=== PATIENT | male | born 1960 | race Caucasian/White ===

== ENCOUNTER 2016-11-29 16:01 | Emergency (ER) | payer MEDICARE ==
[~2016-11-29] VITALS: Ht 180.3 cm; Wt 85.0 kg
[~2016-11-29 16:01] MED LIST: NAPR-576 PO; TRAM50 PO
[2016-11-29 16:20] VITALS: BP 160/89; PULSE 80; RESP 20; TEMP 98; O2SAT 98
--- NOTE | 2016-11-29 16:55 | PD ---
Physical Exam Time Seen by Provider: 16:53 Narrative 56yo M c/o back pain x 20 years. Arrived via [facility]. Says he cannot ambulate; says he "can take 2 steps forward and 5 steps backward and fall." Denies IVD use, cancer. Denies fever, vomiting. Patient seen in triage. VS reviewed. Awaiting bed placement. Data Data Last Documented VS Vital Signs Date Time Temp Pulse Resp B/P Pulse Ox O2 Delivery O2 Flow Rate FiO2 11/29/16 16:20 98.0 80 20 160/89 98 Room Air MDM Supervised Visit with LILY: Fallon Tucker Nov 29, 2016 16:55
[2016-11-29] MEDS ORDERED: MORPHINE SULFATE 8 MG/ML INJ IM ONE (19:45)
--- NOTE | 2016-11-29 19:53 | PD ---
HPI Chief Complaint: Back/ Neck Pain or Injury Time Seen by Provider: 19:20 Travel History International Travel<30 days: No Contact w/Intl Traveler<30days: No Traveled to known affect area: No History of Present Illness HPI 56yo M with chronic neck and back pain presents to the ED with c/o worsening back pain today. States he has back and neck pain since 2004 and had surgery in his neck before. States he is suppose to have surgery in his back but has not followed up. States his back pain radiates down posterior left leg when he lifts his left leg. States his pain was so severe today that he fell backwards and hit his head today. Denies any fever, IVDA, focal weakness or numbness, chest pain, sob, n/v, abdominal pain, urinary or fecal incontinence. Pt does admit to drinking all the time but not today. Pt is homeless. PFSH Past Medical History Diminished Hearing: No Past Surgical History Abdominal Surgery: Yes (HERNIA REPAIR BILATERAL ) Social History Alcohol Use: Yes Tobacco Use: Yes Substance Use: No Allergies-Medications (Allergen,Severity, Reaction): Coded Allergies: No Known Allergies (Unverified , 11/29/16) Reported Meds & Prescriptions Reported Meds & Active Scripts Active No Active Prescriptions or Reported Medications Review of Systems Except as stated in HPI: all other systems reviewed are Neg Physical Exam Narrative GENERAL: 56yo M not in distress. SKIN: Focused skin assessment warm/dry. HEAD: Atraumatic. Normocephalic. +TTP midparietal scalp where he said he hit his head. EYES: Pupils equal and round at 3mm bilaterally. EOMI. No scleral icterus. No injection or drainage. ENT: No nasal bleeding or discharge. Mucous membranes pink and moist. NECK: Diffuse ttp, more on left. Good ROM in cervical spine. CARDIOVASCULAR: Regular rate and rhythm. No murmur appreciated. RESPIRATORY: No accessory muscle use. Clear to auscultation. Breath sounds equal bilaterally. GASTROINTESTINAL: Abdomen soft, non-tender, nondistended. MUSCULOSKELETAL: No obvious deformities. No clubbing. No cyanosis. No edema. + Left straight leg test. BACK: +TTP mid T11-L5. No midline mass. No step off. No erythema. NEUROLOGICAL: Awake and alert. No obvious cranial nerve deficits. Motor grossly within normal limits. Normal speech. Sensation intact. PSYCHIATRIC: Appropriate mood and affect; insight and judgment normal. Data Data Last Documented VS Vital Signs Date Time Temp Pulse Resp B/P Pulse Ox O2 Delivery O2 Flow Rate FiO2 11/29/16 16:20 98.0 80 20 160/[address] Brain W/O Iv Contrast(Rout) (11/29/16 ) Ct Thor Spine W/O Contrast (11/29/16 ) Ct Lumb Spine W/O Contrast (11/29/16 ) Ct Cerv Spine W/O Contrast (11/29/16 ) Morphine Inj (Morphine Inj) (11/29/16 19:45) MDM Medical Decision Making Medical Screen Exam Complete: Yes Emergency Medical Condition: Yes Differential Diagnosis Chronic back and neck pain vs. fracture vs. ICH Narrative Course 56yo M with chronic neck and back pain here for pain treatment. Pt has been in and out of different pain management places and states he does not have anyone now. CT cspine showed negative trauma CT. CT brain negative. CT LS showed fracture through left L2 transverse process. CT TS showed negative trauma study. I discussed with neurosurgeon [employer] professional Dr. Martinez regarding the fracture of left L2 transverse process and he states that he does not need a brace and can follow up with primary care physician as outpatient. Pt given morphine IM for pain and has been able to ambulate in the ED without assistance. Diagnosis Primary Impression: Lumbar transverse process fracture Qualified Code: S32.008A - Lumbar transverse process fracture, closed, initial encounter Patient Instructions: General Instructions Departure Forms: Tests/Procedures Additional Instructions: Please follow up at [facility] in 1-2 days. Return to the ED if symptoms worsen. Med/Other Pt SpecificInfo: Prescription(s) given Scripts Acetaminophen (Tylenol)325 Mg Lss572 Mg PO Q6H PRN (PAIN SCALE 1 TO 4) #20 TAB Ref 0 Prov:Uzma Lopez 11/29/16 Disposition: 01 DISCHARGE HOME Condition: Stable Uzma Lopez Nov 29, 2016 19:53
--- NOTE | 2016-11-29 20:25 | RADRPT ---
EXAM DATE/TIME: 11/29/2016 20:04 [facility] COMPARISON: No previous studies available for comparison. INDICATIONS : Fell and hit head RADIATION DOSE: 69.15 CTDIvol (mGy) MEDICAL HISTORY : None SURGICAL HISTORY : Neck surgery. ENCOUNTER: Initial ACUITY: 1 day PAIN SCALE: 9/10 LOCATION: cranial TECHNIQUE: Multiple contiguous axial images were obtained of the head. Using automated exposure control and adj ustment of the mA and/or kV according to patient size, radiation dose was kept as low as reasonably a chievable to obtain optimal diagnostic quality images. DICOM format image data is available electro nically for review and comparison. FINDINGS: CEREBRUM: The ventricles are normal for age. No evidence of midline shift, mass lesion, hemorrhage or acute in farction. No extra-axial fluid collections are seen. POSTERIOR FOSSA: The cerebellum and brainstem are intact. The 4th ventricle is midline. The cerebellopontine angle i s unremarkable. EXTRACRANIAL: The visualized portion of the orbits is intact. SKULL: The calvaria is intact. No evidence of skull fracture. CONCLUSION: Negative noncontrast CT Chester Covington MD on November 29, 2016 at 20:22 Board Certified Radiologist. This report was verified electronically.
--- NOTE | 2016-11-29 20:30 | RADRPT ---
EXAM DATE/TIME: 11/29/2016 20:04 [facility] COMPARISON: No previous studies available for comparison. INDICATIONS : Chronic back pain, fell today RADIATION DOSE: 25.27 CTDIvol (mGy) ; Combined studies - Thoracic Spine/Lumbar Spine MEDICAL HISTORY : None SURGICAL HISTORY : Neck surgery. ENCOUNTER: Initial ACUITY: 1 day PAIN SCALE: 9/10 LOCATION: Low back TECHNIQUE: Volumetric scanning of the lumbar spine was performed. Multiplanar reconstructions in the sagittal, coronal and oblique axial planes were performed. Using automated exposure control and adjustment of the mA and/or kV according to patient size, radiation dose was kept as low as reasonably achievable t o obtain optimal diagnostic quality images. DICOM format image data is available electronically for review and comparison. FINDINGS: VERTEBRAE: Normal vertebral body height. ALIGNMENT: No evidence of subluxation. T12-L1: The thecal sac has a normal diameter. No evidence of disc bulge or protrusion. The neural foramina are patent bilaterally. L1-L2: The thecal sac has a normal diameter. No evidence of disc bulge or protrusion. The neural foramina are patent bilaterally. There is a fracture of the left L2 transverse process. L2-L3: The thecal sac has a normal diameter. No evidence of disc bulge or protrusion. The neural foramina are patent bilaterally. L3-L4: There is mild annular disc bulge with mild mass effect on the anterior thecal sac. The neural foramin a are patent bilaterally. L4-L5: There is an annular disc bulge with mild flattening of the thecal sac and The neural foramina are pat ent bilaterally. L5-S1: The thecal sac has a normal diameter. No evidence of disc bulge or protrusion. The neural foramina are patent bilaterally. CONCLUSION: 1. Fracture through the left L2 transverse process. 2. Disc bulges at the L3-4 and L4-5 levels. Chester Covington MD on November 29, 2016 at 20:25 Board Certified Radiologist. This report was verified electronically.
--- NOTE | 2016-11-29 20:32 | RADRPT ---
EXAM DATE/TIME: 11/29/2016 20:08 [facility] COMPARISON: No previous studies available for comparison. INDICATIONS : Chronic back pain, fell today RADIATION DOSE: 36.7 CTDIvol (mGy) MEDICAL HISTORY : None SURGICAL HISTORY : Neck surgery. ENCOUNTER: Initial ACUITY: 1 day PAIN SCALE: 9/10 LOCATION: neck TECHNIQUE: Volumetric scanning of the cervical spine was performed. Multiplanar reconstructions i n the sagittal, coronal and oblique axial planes were performed. Using automated exposure control a nd adjustment of the mA and/or kV according to patient size, radiation dose was kept as low as reason ably achievable to obtain optimal diagnostic quality images. DICOM format image data is available e lectronically for review and comparison. FINDINGS: The sagittal reconstructions demonstrate normal alignment and normal prevertebral soft tissues. The d ens is intact and there is a normal atlantoaxial relationship. The patient is status post remote fusi on of the C4 and C5 vertebral bodies as well as the C6 and C7 vertebral bodies. There are degenerativ e changes at the C5-6 and C7-T1 levels. Mild degenerative changes noted involving the atlantoaxial don int as well. The axial images demonstrate that the vertebral bodies and posterior elements are intact. The soft ti ssues are within normal limits. There is no evidence of acute fracture or malalignment. There is a di sc osteophyte complex at the C5-6 level with mass effect on the anterior thecal sac. Screw-plate fixa tion devices present at the C6-7 level anteriorly. CONCLUSION: Negative trauma CT. Chester Covington MD on November 29, 2016 at 20:28 Board Certified Radiologist. This report was verified electronically.
--- NOTE | 2016-11-29 20:37 | RADRPT ---
EXAM DATE/TIME: 11/29/2016 20:12 [facility] COMPARISON: No previous studies available for comparison. INDICATIONS : Chronic back pain, fell today RADIATION DOSE: 25.72 CTDIvol (mGy) ; Combined studies - Thoracic Spine/Lumbar Spine MEDICAL HISTORY : None SURGICAL HISTORY : Neck surgery. ENCOUNTER: Initial ACUITY: 1 day PAIN SCALE: 9/10 LOCATION: Mid back TECHNIQUE: Volumetric scanning of the thoracic spine was performed. Multiplanar reconstructions in the sagittal , coronal and oblique axial planes were performed. Using automated exposure control and adjustment o f the mA and/or kV according to patient size, radiation dose was kept as low as reasonably achievable to obtain optimal diagnostic quality images. DICOM format image data is available electronically f or review and comparison. FINDINGS: The vertebral bodies of the thoracic spine are in normal alignment without evidence of subluxation. Vertebral body height is maintained. No fractures are seen. There is a mild scoliosis there are mild to moderate degenerative changes. The paravertebral soft tissues appear unremarkable. The axial images demonstrate that vertebral bodies and posterior elements are intact. There is no acu te fracture. The visualized ribs are intact as well. Calcified subcarinal lymph nodes are present. Th ere is no evidence of a disc protrusion. CONCLUSION: Negative trauma study. Chester Covington MD on November 29, 2016 at 20:32 Board Certified Radiologist. This report was verified electronically.
[2016-11-29] MEDS ORDERED: TYLE325T PO (21:34)
[2016-11-29 21:55] VITALS: BP 152/80
== END 2016-11-29 21:55 | disposition home or self-care (01) ==
LOC: NEPD 16:01
DX: S32.008A Other fracture of unspecified lumbar vertebra, initial encounter for closed fracture (principal); W18.00XA Striking against unspecified object with subsequent fall, initial encounter; Z59.0 Homelessness; Z72.0 Tobacco use
CPT/HCPCS: 70450; 72125; 72128; 72131; 96372; 99284; J2270

== ENCOUNTER 2016-12-24 11:37 | Inpatient (IN) | payer MEDICARE ==
[~2016-12-24] VITALS: Ht 180.3 cm; Wt 87.6 kg
[~2016-12-24 11:37] MED LIST changes: -NAPR-576 PO; -TRAM50 PO; +TYLE325T PO
[2016-12-24 11:47] VITALS: BP 155/91; PULSE 67; RESP 16; TEMP 98.6; O2SAT 97
--- NOTE | 2016-12-24 12:13 | PD ---
HPI Chief Complaint: Skin Problem Time Seen by Provider: 11:55 Travel History International Travel<30 days: No Contact w/Intl Traveler<30days: No Traveled to known affect area: No History of Present Illness HPI This is a 56-year-old gentleman who states he has no past, presents today with my to worsening pain and redness of his right lower extremity. Patient states that 20 days ago he was seen and told it was just a scratch. He states that its progressively gotten worse and now it's draining and has deep ulceration in the middle. He reports subjective fever, no chills. He does report myalgias. There is no other complaints time my examination. He denies being diabetic. He is unsure of his last tetanus shot. PFSH Past Medical History Diminished Hearing: No Tetanus Vaccination: Unknown Past Surgical History Abdominal Surgery: Yes (hernia left and right side ) Social History Alcohol Use: No Tobacco Use: Yes Substance Use: No Allergies-Medications (Allergen,Severity, Reaction): Coded Allergies: No Known Allergies (Unverified , 12/24/16) Reported Meds & Prescriptions Reported Meds & Active Scripts Active No Active Prescriptions or Reported Medications Review of Systems Except as stated in HPI: all other systems reviewed are Neg General / Constitutional: Positive: Fever, No: Chills HENT: No: Headaches, Lightheadedness, Neck Pain Cardiovascular: No: Chest Pain or Discomfort, Palpitations Respiratory: No: Cough, Shortness of Breath Gastrointestinal: No: Nausea, Vomiting, Abdominal Pain Genitourinary: No: Frequency, Dysuria Musculoskeletal: Positive: Myalgias, Pain (right reyes) Skin: Positive Lesions (draining ulceration right reyes), Positive Other ( redness of the right reyes) Neurologic: No: Weakness, Dizziness, Syncope Physical Exam Narrative GENERAL: Well developed well-nourished male in no acute rest her distress. SKIN: Focused skin assessment warm/dry. HEAD: Atraumatic. Normocephalic. EYES: Pupils equal and round. No scleral icterus. No injection or drainage. ENT: No nasal bleeding or discharge. Mucous membranes pink and moist. NECK: Trachea midline. Supple. CARDIOVASCULAR: Regular rate and rhythm. No murmurs appreciated. RESPIRATORY: No accessory muscle use. Clear to auscultation. Breath sounds equal bilaterally. GASTROINTESTINAL: Abdomen soft, non-tender, nondistended. Hepatic and splenic margins not palpable. MUSCULOSKELETAL: Patient has a 1 cm ulceration to his right mid reyes. There is surrounding cellulitis. There is purulent serous drainage coming from the lesion. NEUROLOGICAL: Awake and alert. No obvious cranial nerve deficits. Motor grossly within normal limits. Normal speech. PSYCHIATRIC: Appropriate mood and affect; insight and judgment normal. Data Data Last Documented VS Vital Signs Date Time Temp Pulse Resp B/P Pulse Ox O2 Delivery O2 Flow Rate FiO2 12/24/16 14:31 65 167/89 12/24/16 14:29 15 97 Nasal Cannula 2 12/24/16 11:47 98.6 Orders Complete Blood Count With Diff (12/24/16 11:55) Comprehensive Metabolic Panel (12/24/16 11:55) Lactic Acid Sepsis Protocol (12/24/16 11:55) Urinalysis - C+S If Indicated (12/24/16 11:55) Blood Culture (12/24/16 11:55) Wound Culture And Gram Stain (12/24/16 11:55) Chest, Single Ap (12/24/16 11:55) Blood Glucose (12/24/16 11:55) Ecg Monitoring (12/24/16 11:55) Iv Access Insert/Monitor (12/24/16 11:55) Oximetry (12/24/16 11:55) Oxygen Administration (12/24/16 11:55) Ondansetron Inj (Zofran Inj) (12/24/16 14:15) Hydromorphone Pf Inj (Dilaudid Pf Inj) (12/24/16 14:15) Vancomycin Inj (Vancomycin Inj) (12/24/16 14:15) Tibia/Fibula (Ap/Lat) (12/24/16 14:32) Admit To Inpatient (12/24/16 ) Vital Signs (Adult) Q4H (12/24/16 15:11) Activity Oob With Assistance (12/24/16 15:11) Diet Heart Healthy (12/24/16 Dinner) Sodium Chlor 0.9% 1000 Ml Inj (Ns 1000 M (12/24/16 15:11) Sodium Chloride 0.9% Flush (Ns Flush) (12/24/16 15:15) Sodium Chloride 0.9% Flush (Ns Flush) (12/24/16 21:00) Acetaminophen (Tylenol) (12/24/16 15:15) Ondansetron Inj (Zofran Inj) (12/24/16 15:15) Basic Metabolic Panel (Bmp) (12/25/16 06:00) Complete Blood Count With Diff (12/25/16 06:00) Pt Request For Service (12/24/16 15:11) Case Management Consult (12/24/16 15:11) Consult Wound / Ostomy Nurse (12/24/16 15:11) Zolpidem (Ambien) (12/24/16 15:15) Enoxaparin Inj (Lovenox Inj) (12/24/16 15:15) Acetamin-Hydrocod 325-5 Mg (Edwards 5-325 (12/24/16 15:15) Docusate Sodium-Senna (Tisha-Colace) (12/24/16 21:00) Magnesium Hydroxide Liq (Milk Of Magnesi (12/24/16 15:15) Sennosides (Senokot) (12/24/16 15:15) Bisacodyl Supp (Dulcolax Supp) (12/24/16 15:15) Lactulose Liq (Lactulose Liq) (12/24/16 15:15) Inpatient Certification (12/24/16 ) Admit To Inpatient (12/24/16 ) Vital Signs (Adult) Q4H (12/24/16 15:11) Bedside Glucose JACKIE.AC&HS (12/24/16 15:11) Intake + Output JACKIE.QSHIFT (12/24/16 15:11) Alcohol Withdrawal Asmt-Ciwa Q4HX18 (12/24/16 15:11) ^ Seizure Precautions (12/24/16 15:11) Sodium Chloride 0.9% Flush (Ns Flush) (12/24/16 15:15) Sodium Chloride 0.9% Flush (Ns Flush) (12/24/16 21:00) Consult Cm-Etoh Abuse Dc Plan (12/24/16 ) Flumazenil Inj (Romazicon Inj) (12/24/16 15:15) Lorazepam (Ativan) (12/24/16 15:15) Lorazepam Inj (Ativan Inj) (12/24/16 15:15) Lorazepam (Ativan) (12/24/16 15:15) Lorazepam Inj (Ativan Inj) (12/24/16 15:15) Lorazepam Inj (Ativan Inj) (12/24/16 15:15) Lorazepam Inj (Ativan Inj) (12/24/16 15:15) Vancomycin Consult Pharmacy (Vancomycin (12/24/16 15:15) Vancomycin Inj (Vancomycin Inj) (12/24/16 15:15) Admit Order (Ed Use Only) (12/24/16 15:16) Labs Laboratory Tests Test 12/24/16 12/24/16 11:50 12:00 White Blood Count 9.6 TH/MM3 Red Blood Count 3.90 MIL/MM3 Hemoglobin 14.0 GM/DL Hematocrit 40.0 % Mean Corpuscular Volume 102.6 FL Mean Corpuscular Hemoglobin 35.8 PG Mean Corpuscular Hemoglobin 34.9 % Concent Red Cell Distribution Width 13.2 % Platelet Count 216 TH/MM3 Mean Platelet Volume 8.3 FL Neutrophils (%) (Auto) 77.7 % Lymphocytes (%) (Auto) 15.0 % Monocytes (%) (Auto) 6.1 % Eosinophils (%) (Auto) 0.8 % Basophils (%) (Auto) 0.4 % Neutrophils # (Auto) 7.4 TH/MM3 Lymphocytes # (Auto) 1.4 TH/MM3 Monocytes # (Auto) 0.6 TH/MM3 Eosinophils # (Auto) 0.1 TH/MM3 Basophils # (Auto) 0.0 TH/MM3 CBC Comment DIFF FINAL Differential Comment Sodium Level 139 MEQ/L Potassium Level 3.8 MEQ/L Chloride Level 104 MEQ/L Carbon Dioxide Level 23.1 MEQ/L Anion Gap 12 MEQ/L Blood Urea Nitrogen 10 MG/DL Creatinine 0.88 MG/DL Estimat Glomerular Filtration 90 ML/MIN Rate Random Glucose 105 MG/DL Lactic Acid Level 1.9 mmol/L Calcium Level 8.6 MG/DL Total Bilirubin 0.4 MG/DL Aspartate Amino Transf 73 U/L (AST/SGOT) Alanine Aminotransferase 55 U/L (ALT/SGPT) Alkaline Phosphatase 81 U/L Total Protein 7.6 GM/DL Albumin 3.8 GM/DL Urine Color YELLOW Urine Turbidity CLEAR Urine pH 6.0 Urine Specific Caldwell 1.013 Urine Protein TRACE mg/dL Urine Glucose (UA) NEG mg/dL Urine Ketones TRACE mg/dL Urine Occult Blood NEG Urine Nitrite NEG Urine Bilirubin NEG Urine Urobilinogen LESS THAN 2.0 MG/DL Urine Leukocyte Esterase NEG Urine RBC LESS THAN 1 /hpf Urine WBC LESS THAN 1 /hpf Microscopic Urinalysis Comment CULT NOT INDICATED MDM Medical Decision Making Medical Screen Exam Complete: Yes Emergency Medical Condition: Yes Differential Diagnosis Cellulitis versus osteomyelitis versus DVT Narrative Course 56-year-old male who reports no past medical history, presents today with complaint of right lower extremity redness and draining lesion. The patient has cellulitis with a central necrotic draining lesion. The patient's white count is surprisingly normal. The patient does have a history of alcohol use. He reports subjective fever. He also reports myalgias. He's been started on vancomycin. X-ray of the right lower extremity shows no obvious lytic lesions in the tibia or fibula. Case was discussed with Dr. Dahl, who agrees with the above plan. He will be made a full admit. Diagnosis Primary Impression: Cellulitis of right lower extremity Scripts No Active Prescriptions or Reported Meds Jerson Montilla MD Dec 24, 2016 12:13
[2016-12-24 12:35] LABS: AUTOMATED NEUTROPHIL # 7.4 TH/MM3 (1.8-7.7); BASOPHIL % 0.4 % (0.0-2.0); EOSINOPHIL # 0.1 TH/MM3 (0-0.4); EOSINOPHIL % 0.8 % (0.0-4.0); HEMO FLAGS DIFF FINAL; LYMPHOCYTE # 1.4 TH/MM3 (1.0-4.8); MEAN CELL VOLUME 102.6 FL (80.0-100.0); MEAN CORPUSCULAR HEMOGLOBIN 35.8 PG (27.0-34.0); MEAN CORPUSCULAR HGB CONC 34.9 % (32.0-36.0); MONO % 6.1 % (0.0-8.0); NEUT % 77.7 % (16.0-70.0); PLATELET COUNT 216 TH/MM3 (150-450); RED CELL DISTRIBUTION WIDTH 13.2 % (11.6-17.2); WHITE BLOOD COUNT 9.6 TH/MM3 (4.0-11.0)
--- NOTE | 2016-12-24 12:47 | RADRPT ---
EXAM DATE/TIME: 12/24/2016 12:04 [facility] COMPARISON: No previous studies available for comparison. INDICATIONS : Fever. MEDICAL HISTORY : None. SURGICAL HISTORY : None. ENCOUNTER: Initial ACUITY: 1 day PAIN SCORE: 0/10 LOCATION: Bilateral chest FINDINGS: A single view of the chest demonstrates the lungs to be symmetrically aerated without evidence of mas s, infiltrate or effusion. The cardiomediastinal contours are unremarkable. Osseous structures are intact. CONCLUSION: No acute disease. Conner Escobedo MD on December 24, 2016 at 12:45 Board Certified Radiologist. This report was verified electronically.
[2016-12-24 12:55] LABS: ALT (GPT) 55 U/L (12-78)
[2016-12-24 12:57] LABS: ALKALINE PHOSPHATASE 81 U/L (45-117); TOTAL BILIRUBIN ADULT 0.4 MG/DL (0.2-1.0)
[2016-12-24 13:03] LABS: ANION GAP 12 MEQ/L (5-15); AST (GOT) 73 U/L (15-37); BICARBONATE 23.1 MEQ/L (21.0-32.0); BLOOD UREA NITROGEN 10 MG/DL (7-18); CHLORIDE 104 MEQ/L (98-107); GLOMERULAR FILTRATION RATE 90 ML/MIN (>89); POTASSIUM 3.8 MEQ/L (3.5-5.1); SODIUM (NA) 139 MEQ/L (136-145)
[2016-12-24 13:24] LABS: BLOOD, URINE NEG (NEG); COMMENT (UR) CULT NOT INDICATED; CULTURE IF INDICATED CULT NOT INDICATED; GLUCOSE,URINE NEG (NEG); KETONE, URINE TRACE mg/dL (NEG); NITRITE,URINE NEG (NEG); URINE COLOR YELLOW (YELLW/STRAW)
[2016-12-24] MEDS ORDERED: VANCOMYCIN INJ 1,000 MG in SODIUM CHLOR 0.9% 250 ML INJ 250 ML IV ONE (14:15)
[2016-12-24] MEDS ORDERED: ONDANSETRON HCL 4 MG/2 ML VIAL IVP ONE (14:15)
[2016-12-24] MEDS ORDERED: HYDROmorphone HCL PF 1 MG/ML VIAL IVS ONE (14:15)
[2016-12-24 14:29] VITALS: BP 167/89; PULSE 64; RESP 15; O2SAT 97
[2016-12-24 14:31] VITALS: BP 167/89; PULSE 65
--- NOTE | 2016-12-24 15:04 | RADRPT ---
EXAM DATE/TIME: 12/24/2016 14:52 [facility] COMPARISON: No previous studies available for comparison. INDICATIONS : Pain from wound on anterior, lateral surface of leg. MEDICAL HISTORY : None. SURGICAL HISTORY : None. ENCOUNTER: Initial ACUITY: 3 weeks PAIN SCORE: 5/10 LOCATION: Right later, anterior aspect of lower leg. FINDINGS: Two views of the right leg demonstrate no fracture or dislocation. Mineralization is within normal li mits. No soft tissue abnormality or radiopaque foreign body is identified.CONCLUSION: No acute abnormality is identified Inderjit Crooks MD on December 24, 2016 at 15:01 Board Certified Radiologist. This report was verified electronically.
[2016-12-24] MEDS ORDERED: LORazepam 2 MG/ML VIAL IV PUSH PRN ×4 (15:15)
[2016-12-24] MEDS ORDERED: FLUMAZENIL 0.5 MG/5 ML VIAL IV PUSH PRN (15:15)
[2016-12-24] MEDS ORDERED: Vancomycin Consult Pharmacy 1 EA OTHER SCH (15:15)
[2016-12-24] MEDS ORDERED: MAGNESIUM HYDROXIDE SUSP 30 ML CUP PO PRN (15:15)
[2016-12-24] MEDS ORDERED: SODIUM CHLORIDE 0.9% FLUSH 10 ML FLUSH IV FLUSH PRN ×2 (15:15)
[2016-12-24] MEDS ORDERED: LACTULOSE SYRUP 20 GM/30 ML CUP PO PRN (15:15)
[2016-12-24] MEDS ORDERED: ONDANSETRON HCL 4 MG/2 ML VIAL IVP PRN (15:15)
[2016-12-24] MEDS ORDERED: BISACODYL 10 MG SUPP RECTAL PRN (15:15)
[2016-12-24] MEDS ORDERED: LORazepam 2 MG TAB PO PRN (15:15)
[2016-12-24] MEDS ORDERED: SENNOSIDES 8.6 MG TAB PO PRN (15:15)
[2016-12-24] MEDS ORDERED: ACETAMINOPHEN 325 MG TAB PO PRN (15:15)
--- NOTE | 2016-12-24 15:22 | HHI.HP ---
[facility] Primary Care Physician No Primary Care Physician Admission Diagnosis Diagnoses: Chief Complaint: Right leg ulceration with pain and redness Travel History International Travel<30 Days: No Contact w/Intl Traveler <30 Da: No Traveled to Known Affected Are: No History of Present Illness Written by Tammie Bennett PA-C acting as scribe for Dr. Dahl on 12/24/16 at 15:15. This note was transcribed by scribe Tammie Bennett PA-C. I, Dr. Dayana Dahl personally performed the history, physical exam, and medical decision making; and confirmed the accuracy of the information in the transcribed note. Authenticated by Dr. Dayana Dahl on 12/24/16 at 15:15. This is a 56-year-old male whose only past medical history is significant for previous cardiac catheterization which revealed a small blockage in one vessel that did not require medical therapy per patient report who fell on the curb approximately 20 days ago resulting in a scratch of the right leg. States over the past several weeks the scratch has worsened becoming larger now with associated redness and pain despite his treatment of peroxide cleaning and application of triple antibiotic ointment. He is able to walk but states it is painful. He reports subjective fever and chills. He denies any nausea, vomiting or abdominal pain but states he has had diarrhea for the past week. Patient denies chest pain. He denies any previous history of diabetes but does report a family history of diabetes. He denies any history of IV drug use. Patient is noted to be smelling of alcohol. He reports having one beer earlier today. He does report being tremulous at this time which he states is due to the infection. He does not follow with a primary care physician. In the ED, patient is afebrile his white count is normal. X-ray of the right leg is pending. Blood pressure is slightly elevated 167/89. Review of Systems Except as stated in HPI: all other systems reviewed are Neg Past Family Social History Past Medical History Previous heart catheterization which showed small blockage in one vessel that did not necessitate medical therapy per patient report. Past Surgical History Bilateral hernia repair Left hand surgery Left foot surgery 2 Nasal surgery Multiple cervical surgeries including a previous fusion Cardiac catheterization Reported Medications Patient denies any home medications. Allergies: Coded Allergies: No Known Allergies (Unverified , 12/24/16) Active Ordered Medications Current Medications Medications (Trade) Dose Ordered Sig/Brandon Route Start Time Stop Time Status Last Admin (Vancomycin Inj/ NS 250 ml Inj) 250 ml @ 250 mls/hr ONCE ONCE IV 12/24/16 14:15 12/24/16 15:14 12/24/16 14:27 Family History Reviewed with patient who admits to family medical history diabetes and heart disease Social History Patient admits to tobacco use of pack per day for 40 years. Patient reports alcohol consumption of 4-5 drinks per week. He denies any illicit drug use. Physical Exam Vital Signs Vital Signs Date Time Temp Pulse Resp B/P Pulse Ox O2 Delivery O2 Flow Rate FiO2 12/24/16 14:31 65 167/89 12/24/16 14:29 64 15 167/89 97 Nasal Cannula 2 12/24/16 14:29 97 Nasal Cannula 2 12/24/16 11:50 69 16 12/24/16 11:47 98.6 67 16 155/91 97 Physical Exam GENERAL: This is a well-nourished, well-developed patient, in no apparent distress. Awake and alert. Lying in hospital bed. SKIN: (+)3x3cm area of ulceration right anterior tibia with surrounding erythema. No induration or fluctuance appreciated. No active drainage noted. HEAD: Atraumatic. Normocephalic. No temporal or scalp tenderness. EYES: Pupils equal round and reactive. Extraocular motions intact. No scleral icterus. No injection or drainage. ENT: Nose without bleeding or purulent drainage. Throat without erythema, tonsillar hypertrophy or exudate. Uvula midline. Airway patent. NECK: Trachea midline. No lymphadenopathy. Supple, nontender, no meningeal signs. CARDIOVASCULAR: Regular rate and rhythm without murmurs, gallops, or rubs. RESPIRATORY: Clear to auscultation. Breath sounds equal bilaterally. No wheezes , rales, or rhonchi. GASTROINTESTINAL: Abdomen soft, non-tender, nondistended. No hepato-splenomegaly , or palpable masses. No guarding. MUSCULOSKELETAL: Extremities without clubbing, cyanosis, or edema. No joint tenderness, effusion, or edema noted. No calf tenderness. NEUROLOGICAL: Awake and alert. Able to move all extremities. No focal neurologic findings appreciated. Normal speech. Laboratory Laboratory Tests Test 12/24/16 12/24/16 11:50 12:00 White Blood Count 9.6 Red Blood Count 3.90 Hemoglobin 14.0 Hematocrit 40.0 Mean Corpuscular Volume 102.6 Mean Corpuscular Hemoglobin 35.8 Mean Corpuscular Hemoglobin 34.9 Concent Red Cell Distribution Width 13.2 Platelet Count 216 Mean Platelet Volume 8.3 Neutrophils (%) (Auto) 77.7 Lymphocytes (%) (Auto) 15.0 Monocytes (%) (Auto) 6.1 Eosinophils (%) (Auto) 0.8 Basophils (%) (Auto) 0.4 Neutrophils # (Auto) 7.4 Lymphocytes # (Auto) 1.4 Monocytes # (Auto) 0.6 Eosinophils # (Auto) 0.1 Basophils # (Auto) 0.0 CBC Comment DIFF FINAL Differential Comment Sodium Level 139 Potassium Level 3.8 Chloride Level 104 Carbon Dioxide Level 23.1 Anion Gap 12 Blood Urea Nitrogen 10 Creatinine 0.88 Estimat Glomerular Filtration 90 Rate Random Glucose 105 Lactic Acid Level 1.9 Calcium Level 8.6 Total Bilirubin 0.4 Aspartate Amino Transf 73 (AST/SGOT) Alanine Aminotransferase 55 (ALT/SGPT) Alkaline Phosphatase 81 Total Protein 7.6 Albumin 3.8 Urine Color YELLOW Urine Turbidity CLEAR Urine pH 6.0 Urine Specific Bent 1.013 Urine Protein TRACE Urine Glucose (UA) NEG Urine Ketones TRACE Urine Occult Blood NEG Urine Nitrite NEG Urine Bilirubin NEG Urine Urobilinogen LESS THAN 2.0 Urine Leukocyte Esterase NEG Urine RBC LESS THAN 1 Urine WBC LESS THAN 1 Microscopic Urinalysis Comment CULT NOT INDICATED Date/Time Procedure Status Source Growth 12/24/16 12:00 Aerobic Blood Culture Received Blood Peripheral Pending 12/24/16 12:00 Anaerobic Blood Culture Received Blood Peripheral Pending 12/24/16 11:45 Gram Stain Received Wound Leg Pending 12/24/16 11:45 Wound Culture Received Wound Leg Pending Result Diagram: 12/24/16 1150 12/24/16 1150 Imaging Last Impressions Chest X-Ray 12/24/16 1155 Signed Impressions: Service Date/Time: Saturday, December 24, 2016 12:04 - CONCLUSION: No acute disease. Conner Escobedo MD Assessment and Plan Assessment and Plan 56-year-old male whose only past medical history is significant for previous cardiac catheterization which revealed a small blockage in one vessel that did not require medical therapy per patient report who fell on the curb approximately 20 days ago resulting in a scratch of the right leg. States over the past several weeks the scratch has worsened becoming larger now with associated redness and pain. Right lower extremity cellulitis - Patient started on vancomycin in the ED and will continue - Follow-up on blood culture and wound culture results - IV Zofran when necessary nausea and vomiting - IVF - PT eval/tx - Tylenol when necessary for fever and pain - Obtain hemoglobin A1c evaluation of possible undiagnosed diabetes - X-ray of the right leg reviewed by myself and the ED physician shows no evidence of deeper infection, abscess or underlying osteomyelitis. Will follow up on final report once available. Elevated blood pressure - Patient has no document a history of hypertension the patient admits he does not cut or primary care physician - obtain fasting lipid profile - Vasotec 2.5mg IV q6 prn, Clonidine 0.1mg IV q6h prn - Will consult case management to assist with list of primary care providers patient follow up with as an outpatient Suspicion of alcohol abuse - Patient denies any history of alcohol withdrawal including tremors or seizures - CIWA protocol, rally pack. Seizure precautions - Monitor for signs of withdrawal Ongoing tobaccoism - Discussed smoking cessation/counseling - on ativan for withdrawals. DVT prophylaxis - Lovenox subcutaneous Discussed Condition With Patient, ED physician Physician Certification 2 Midnight Certification Type: Admission for Inpatient Services Order for Inpatient Services The services are ordered in accordance with Medicare regulations or non- Medicare payer requirements, as applicable. In the case of services not specified as inpatient-only, they are appropriately provided as inpatient services in accordance with the 2-midnight benchmark. Estimated LOS (days): 3 days is the estimated time the patient will need to remain in the hospital, assuming treatment plan goals are met and no additional complications. Post-Hospital Plan: Home Tammie Bennett Dec 24, 2016 15:22 Dayana Dahl MD Dec 24, 2016 15:28
[2016-12-24] MEDS ORDERED: THIAMINE HCL 100 MG TAB PO ONE (15:30)
[2016-12-24] MEDS ORDERED: FOLIC ACID 1 MG TAB PO ONE (15:30)
[2016-12-24] MEDS ORDERED: MULTIVITAMIN TAB PO ONE (15:30)
[2016-12-24] MEDS ORDERED: cloNIDine HCL 0.1 MG TAB PO PRN (15:30)
[2016-12-24] MEDS ORDERED: ENALAPRILAT 2.5 MG/2 ML VIAL IV PUSH PRN (15:30)
[2016-12-24] MEDS: SODIUM CHLOR 0.9% 1000 ML INJ 1,000 ML IV SCH ×2 (15:32→20:55)
[2016-12-24 16:27] VITALS: BP 158/78
[2016-12-24 16:37] VITALS: BP 147/87; PULSE 83; RESP 20; TEMP 97.9; O2SAT 91
[2016-12-24] MEDS: ACETAMINOPHEN/HYDROcodone 325 MG/5 MG TAB PO PRN ×2 (17:31→21:48)
[2016-12-24] MEDS: LORazepam 1 MG TAB PO PRN ×2 (17:31→21:48)
[2016-12-24] MEDS: ENOXAPARIN SODIUM 40 MG/0.4 ML SYRINGE SQ SCH (17:32)
[2016-12-24 18:11] LABS: HDL CHOLESTEROL 92.1 MG/DL (40.0-60.0); LDL CHOLESTEROL 25 MG/DL (0-99)
[2016-12-24 20:00] VITALS: BP 162/83; PULSE 47; RESP 20; TEMP 97.8; O2SAT 94
[2016-12-24] MEDS: DOCUSATE SODIUM 50 MG/SENNA 8.6 MG TAB PO SCH (20:50)
[2016-12-24] MEDS: SODIUM CHLORIDE 0.9% FLUSH 10 ML FLUSH IV FLUSH SCH (20:50)
[2016-12-24] MEDS ORDERED: SODIUM CHLORIDE 0.9% FLUSH 10 ML FLUSH IV FLUSH SCH (21:00)
[2016-12-24 21:34] LABS: HEMOGLOBIN A1a 1.3 %; HEMOGLOBIN A1b 0.7 %; HEMOGLOBIN Ao 84.8 %; HEMOGLOBIN LA1C 2.2 %; HEMOGLOBIN P3 3.7 %
[2016-12-25 00:08] VITALS: BP 142/73; PULSE 44; RESP 20; TEMP 97.9; O2SAT 95
[2016-12-25] MEDS: LORazepam 1 MG TAB PO PRN ×6 (01:31→22:43)
[2016-12-25] MEDS: ACETAMINOPHEN/HYDROcodone 325 MG/5 MG TAB PO PRN ×5 (01:31→17:39)
[2016-12-25] MEDS: VANCOMYCIN INJ 1,000 MG in SODIUM CHLOR 0.9% 250 ML INJ 250 ML IV SCH ×2 (01:32→13:23)
[2016-12-25 04:00] VITALS: BP 155/72; PULSE 71; RESP 20; TEMP 97.9; O2SAT 97
[2016-12-25 06:48] LABS: BICARBONATE 29.5 MEQ/L (21.0-32.0); POTASSIUM 3.7 MEQ/L (3.5-5.1)
[2016-12-25 07:09] LABS: AUTOMATED NEUTROPHIL # 3.9 TH/MM3 (1.8-7.7); BASOPHIL % 0.4 % (0.0-2.0); EOSINOPHIL # 0.1 TH/MM3 (0-0.4); EOSINOPHIL % 2.1 % (0.0-4.0); HEMATOCRIT 40.1 % (39.0-51.0); HEMO FLAGS DIFF FINAL; LYMPH % 18.8 % (9.0-44.0); MEAN CELL VOLUME 104.1 FL (80.0-100.0); MEAN CORPUSCULAR HGB CONC 33.6 % (32.0-36.0); NEUT % 70.7 % (16.0-70.0); PLATELET COUNT 189 TH/MM3 (150-450); RED BLOOD COUNT 3.85 MIL/MM3 (4.50-5.90); RED CELL DISTRIBUTION WIDTH 13.1 % (11.6-17.2); WHITE BLOOD COUNT 5.5 TH/MM3 (4.0-11.0)
[2016-12-25 08:00] VITALS: BP 154/78; PULSE 45; RESP 20; TEMP 97.8; O2SAT 95
[2016-12-25] MEDS: THIAMINE HCL 100 MG TAB PO SCH (09:10)
[2016-12-25] MEDS: DOCUSATE SODIUM 50 MG/SENNA 8.6 MG TAB PO SCH ×2 (09:10→20:49)
[2016-12-25] MEDS: FOLIC ACID 1 MG TAB PO SCH (09:10)
[2016-12-25] MEDS: MULTIVITAMIN TAB PO SCH (09:10)
[2016-12-25] MEDS: SODIUM CHLORIDE 0.9% FLUSH 10 ML FLUSH IV FLUSH SCH ×2 (09:12→20:46)
--- NOTE | 2016-12-25 11:43 | HHI.PR ---
Subjective Remarks complains of pain- leg started out as scrape- self medicating with OTC topical antibiotics Objective Vitals Vital Signs Date Time Temp Pulse Resp B/P Pulse Ox O2 Delivery O2 Flow Rate FiO2 12/25/16 08:00 97.8 45 20 154/78 95 12/25/16 04:00 97.9 71 20 155/72 97 12/25/16 04:00 Room Air 12/25/16 00:08 97.9 44 20 142/73 95 12/25/16 00:00 Room Air 12/24/16 20:00 Room Air 12/24/16 20:00 97.8 47 20 162/83 94 12/24/16 16:37 97.9 83 20 147/87 91 12/24/16 16:27 68 15 158/78 97 12/24/16 14:31 65 167/89 12/24/16 14:29 64 15 167/89 97 Nasal Cannula 2 12/24/16 14:29 97 Nasal Cannula 2 12/24/16 11:50 69 16 12/24/16 11:47 98.6 67 16 155/91 97 I/O 12/24/16 12/24/16 12/24/16 12/25/16 12/25/16 12/25/16 06:59 14:59 22:59 06:59 14:59 22:59 Intake Total 600 ml 2324 ml Output Total 650 ml Balance 600 ml 1674 ml Intake Oral 600 ml 1440 ml IV Total 884 ml Output Urine Total 650 ml # Voids 3 # Bowel Movements 0 0 Result Diagram: 12/25/16 0511 12/25/16 0511 Imaging Last Impressions Tibia/Fibula X-Ray 12/24/16 1432 Signed Impressions: Service Date/Time: Saturday, December 24, 2016 14:52 - CONCLUSION: No acute abnormality is identified Inderjit Crooks MD Chest X-Ray 12/24/16 1155 Signed Impressions: Service Date/Time: Saturday, December 24, 2016 12:04 - CONCLUSION: No acute disease. Conner Escobedo MD Objective Remarks anicteric lungs clear regular rhythm abdomen soft, nontender right LE-tibial surface- ulcer with purulent drainage with surrounding cellulitis, good ++ peripheral pulses A/P Assessment and Plan 56-year-old male whose only past medical history is significant for previous cardiac catheterization which revealed a small blockage in one vessel that did not require medical therapy per patient report who fell on the curb approximately 20 days ago resulting in a scratch of the right leg. States over the past several weeks the scratch has worsened becoming larger now with associated redness and pain. Right lower extremity cellulitis with open deep wound - on vancomycin - Follow-up on blood culture and wound culture results - IV Zofran when necessary nausea and vomiting - IVF - PT eval/tx - Tylenol when necessary for fever and pain prn pain meds A1C 5.6 Elevated blood pressure- no history- monitor - Patient has no document a history of hypertension the patient admits he does not cut or primary care physician - obtain fasting lipid profile - Vasotec 2.5mg IV q6 prn, Clonidine 0.1mg IV q6h prn - Will consult case management to assist with list of primary care providers patient follow up with as an outpatient Suspicion of alcohol abuse - Patient denies any history of alcohol withdrawal including tremors or seizures - CIWA protocol, rally pack. Seizure precautions - Monitor for signs of withdrawal get drug screen Ongoing tobaccoism - Discussed smoking cessation/counseling - on ativan for withdrawals. DVT prophylaxis - Lovenox subcutaneous requesting for a cane on DC Omari Cook MD Dec 25, 2016 11:43
[2016-12-25 11:55] VITALS: BP 138/62; PULSE 46; RESP 20; TEMP 97.5; O2SAT 95
[2016-12-25 15:26] VITALS: BP 129/68; PULSE 61; RESP 20; TEMP 97.9; O2SAT 95
[2016-12-25] MEDS: ENOXAPARIN SODIUM 40 MG/0.4 ML SYRINGE SQ SCH (17:38)
[2016-12-25 20:00] VITALS: BP 130/75; PULSE 59; RESP 16; TEMP 97.9; O2SAT 98
[2016-12-25 20:20] LABS: AMPHETAMINE, URINE NEG (NEG); BARBITURATES, URINE NEG (NEG); COCAINE, URINE NEG (NEG)
[2016-12-25] MEDS: SODIUM CHLOR 0.9% 1000 ML INJ 1,000 ML IV SCH (20:50)
[2016-12-25] MEDS ORDERED: ACETAMINOPHEN/HYDROcodone 325 MG/10 MG TAB PO ONE (21:30)
[2016-12-26] VITALS (8 sets, daily range): BP systolic 129–174; BP diastolic 75–84; PULSE 42–75; RESP 16–18; TEMP 97.5–98.2; O2SAT 94–99
[2016-12-26] MEDS ORDERED: PHARMACY ORDERED LAB ONE (01:45)
[2016-12-26] MEDS: ACETAMINOPHEN/HYDROcodone 325 MG/5 MG TAB PO PRN ×3 (02:00→10:43)
[2016-12-26] MEDS: VANCOMYCIN INJ 1,000 MG in SODIUM CHLOR 0.9% 250 ML INJ 250 ML IV SCH (02:00)
[2016-12-26] MEDS: LORazepam 1 MG TAB PO PRN ×5 (03:42→21:20)
[2016-12-26] MEDS: FOLIC ACID 1 MG TAB PO SCH (08:20)
[2016-12-26] MEDS: MULTIVITAMIN TAB PO SCH (08:20)
[2016-12-26] MEDS: THIAMINE HCL 100 MG TAB PO SCH (08:20)
[2016-12-26] MEDS: DOCUSATE SODIUM 50 MG/SENNA 8.6 MG TAB PO SCH ×2 (08:20→21:20)
[2016-12-26] MEDS: SODIUM CHLORIDE 0.9% FLUSH 10 ML FLUSH IV FLUSH SCH ×2 (08:24→21:00)
[2016-12-26] MEDS ORDERED: VANCOMYCIN INJ 1,750 MG in SODIUM CHLORID 0.9% 500 ML INJ 500 ML IV SCH (12:00)
--- NOTE | 2016-12-26 14:30 | HHI.PR ---
Subjective Remarks no fever or chills complains of pain leg wound site Objective Vitals Vital Signs Date Time Temp Pulse Resp B/P Pulse Ox O2 Delivery O2 Flow Rate FiO2 12/26/16 12:00 97.8 51 18 156/82 96 12/26/16 08:00 75 12/26/16 08:00 97.5 58 18 160/84 97 12/26/16 08:00 96 Room Air 12/26/16 06:44 42 12/26/16 04:00 98.0 43 16 151/76 94 12/26/16 00:00 98.2 45 18 134/75 96 12/25/16 20:00 97.9 59 16 130/75 98 12/25/16 20:00 Room Air 12/25/16 15:26 97.9 61 20 129/68 95 I/O 12/25/16 12/25/16 12/25/16 12/26/16 12/26/16 12/26/16 06:59 14:59 22:59 06:59 14:59 22:59 Intake Total 2324 ml 360 ml 2077 ml 2221 ml Output Total 650 ml 420 ml 650 ml Balance 1674 ml 360 ml 1657 ml 1571 ml Intake Oral 1440 ml 360 ml 500 ml 1440 ml IV Total 884 ml 1577 ml 781 ml Output Urine Total 650 ml 420 ml 650 ml # Voids 3 # Bowel Movements 0 0 0 Result Diagram: 12/25/16 0511 12/25/16 0511 Imaging Last Impressions Tibia/Fibula X-Ray 12/24/16 1432 Signed Impressions: Service Date/Time: Saturday, December 24, 2016 14:52 - CONCLUSION: No acute abnormality is identified Inderjit Crooks MD Chest X-Ray 12/24/16 1155 Signed Impressions: Service Date/Time: Saturday, December 24, 2016 12:04 - CONCLUSION: No acute disease. Conner Escobedo MD Objective Remarks anicteric lungs clear regular rhythm abdomen soft, nontender right LE-tibial surface- ulcer with purulent drainage- less on exam, with surrounding cellulitis, good ++ peripheral pulses A/P Assessment and Plan 56-year-old male whose only past medical history is significant for previous cardiac catheterization which revealed a small blockage in one vessel that did not require medical therapy per patient report who fell on the curb approximately 20 days ago resulting in a scratch of the right leg. States over the past several weeks the scratch has worsened becoming larger now with associated redness and pain. Right lower extremity cellulitis with open deep wound- MSSA - on IV ancef - consult Podiatry- - re : evaluate need for further debridement - PT eval/tx - Tylenol when necessary for fever and pain.- Lortab 10 q 4 prn prn pain meds A1C 5.6 Elevated blood pressure- no history- monitor Bradycardia- monitor - obtain fasting lipid profile - Vasotec 2.5mg IV q6 prn, Clonidine 0.1mg po q6h prn - Will consult case management to assist with list of primary care providers patient follow up with as an outpatient Suspicion of alcohol abuse - Patient denies any history of alcohol withdrawal including tremors or seizures - CIWA protocol, rally pack. Seizure precautions - Monitor for signs of withdrawal - get drug screen- pending Tobacco use - Discussed smoking cessation/counseling - on ativan for withdrawals. DVT prophylaxis - Lovenox subcutaneous requesting for a cane on DC Omari Cook MD Dec 26, 2016 14:30 Omari Cook MD Dec 26, 2016 14:30 Omari Cook MD Dec 26, 2016 14:30
[2016-12-26] MEDS: ACETAMINOPHEN/HYDROcodone 325 MG/10 MG TAB PO PRN ×3 (14:50→23:07)
[2016-12-26] MEDS: ENOXAPARIN SODIUM 40 MG/0.4 ML SYRINGE SQ SCH (16:41)
[2016-12-26] MEDS: ceFAZolin 2 GM PREMIX 50 ML IV SCH (16:43)
[2016-12-27] VITALS (8 sets, daily range): BP systolic 128–154; BP diastolic 72–84; PULSE 36–60; RESP 16–20; TEMP 97.4–98.3; O2SAT 95–98
[2016-12-27] MEDS: LORazepam 1 MG TAB PO PRN ×3 (01:43→14:46)
[2016-12-27] MEDS: ceFAZolin 2 GM PREMIX 50 ML IV SCH ×3 (01:43→16:12)
[2016-12-27] MEDS: ACETAMINOPHEN/HYDROcodone 325 MG/10 MG TAB PO PRN ×5 (03:12→20:29)
[2016-12-27] MEDS: SODIUM CHLOR 0.9% 1000 ML INJ 1,000 ML IV SCH (06:00)
[2016-12-27] MEDS: DOCUSATE SODIUM 50 MG/SENNA 8.6 MG TAB PO SCH ×2 (08:35→20:29)
[2016-12-27] MEDS: THIAMINE HCL 100 MG TAB PO SCH (08:35)
[2016-12-27] MEDS: FOLIC ACID 1 MG TAB PO SCH (08:35)
[2016-12-27] MEDS: MULTIVITAMIN TAB PO SCH (08:35)
[2016-12-27] MEDS: SODIUM CHLORIDE 0.9% FLUSH 10 ML FLUSH IV FLUSH SCH ×2 (08:39→20:26)
--- NOTE | 2016-12-27 09:39 | HHI.PR ---
Subjective Remarks awake and alert, no complains of pain this am po 100% - slightly tremulous on exam Objective Vitals Vital Signs Date Time Temp Pulse Resp B/P Pulse Ox O2 Delivery O2 Flow Rate FiO2 12/27/16 08:00 98.2 44 20 135/80 95 12/27/16 05:12 97.5 41 16 128/77 95 12/27/16 00:08 97.5 43 16 149/84 96 12/26/16 20:42 46 12/26/16 20:00 Room Air 12/26/16 19:33 97.6 45 16 129/78 99 12/26/16 16:00 98.2 45 18 174/84 97 12/26/16 12:00 97.8 51 18 156/82 96 I/O 12/26/16 12/26/16 12/26/16 12/27/16 12/27/16 12/27/16 07:00 15:00 23:00 07:00 15:00 23:00 Intake Total 2221 ml 960 ml 240 ml 120 ml Output Total 650 ml 2 ml 300 ml 350 ml Balance 1571 ml 958 ml -60 ml -230 ml Intake Oral 1440 ml 960 ml 240 ml 120 ml IV Total 781 ml Output Urine Total 650 ml 2 ml 300 ml 350 ml # Bowel Movements 0 0 0 1 Result Diagram: 12/25/1651012/25/16 05 Imaging Last Impressions Tibia/Fibula X-Ray 12/24/16 1432 Signed Impressions: Service Date/Time: Saturday, December 24, 2016 14:52 - CONCLUSION: No acute abnormality is identified Inderjit Crooks MD Chest X-Ray 12/24/16 1155 Signed Impressions: Service Date/Time: Saturday, December 24, 2016 12:04 - CONCLUSION: No acute disease. Conner Escobedo MD Objective Remarks anicteric lungs clear HR 54 with occasional pause abdomen soft, nontender right LE-tibial surface- open wound/ulcer -still with minimal foul purulent drainage, minimal necrotic edges on one side with surrounding erythema, good ++ peripheral pulses A/P Assessment and Plan 56-year-old male whose only past medical history is significant for previous cardiac catheterization which revealed a small blockage in one vessel that did not require medical therapy per patient report who fell on the curb approximately 20 days ago resulting in a scratch of the right leg. States over the past several weeks the scratch has worsened becoming larger now with associated redness and pain. Right lower extremity MSSA ulcer/ wound with surrounding cellulitis - on IV ancef 2 gm q 8 - consulted Podiatry- - re : evaluate need for further debridement and wound care - PT eval/tx - Lortab 10 q 4 prn prn pain meds A1C 5.6 Elevated blood pressure- no history- monitor- better readings Bradycardia on exam - occasional pauses - good lipid panel - get an EKG. check TSH - Will consult case management to assist with list of primary care providers patient follow up with as an outpatient Suspicion of alcohol abuse- mildly tremulous - Patient denies any history of alcohol withdrawal including tremors or seizures - CIWA protocol, rally pack. Seizure precautions - start on Librium tid - drug screen negative Tobacco use - Discussed smoking cessation/counseling DVT prophylaxis - Lovenox subcutaneous requesting for a cane on DC- get PT consult Omari Cook MD Dec 27, 2016 09:39
--- NOTE | 2016-12-27 12:14 | EKG ---
Date Performed: 12/27/2016 Time Performed: 11:42:57 PTAGE: 56 years EKG: SINUS BRADYCARDIA BORDERLINE ECG NO PREVIOUS TRACING DOCTOR: Dmitry Turner Interpretating Date/Time 12/27/2016 12:12:29
--- NOTE | 2016-12-27 12:41 | PD.POD.CON ---
Patient Intake Chief Complaint Ulceration right anterior leg Consult Requested by Dr. Hu Reason for Consult Evaluation and treatment of wound right anterior leg Primary Care Physician No Primary Care Physician History of Present Illness 56-year-old male presented to the hospital with an ulceration of the right anterior leg. Patient states a few weeks ago he fell and hit his leg on a curb. The wound started getting worse. It is not tender and sore and red. Coded Allergies: No Known Allergies (Unverified , 12/24/16) Preferred Language to Discuss: Swedish Barriers to Learning: None Teaching Method: Discussion Vital Signs Date Time Temp Pulse Resp B/P Pulse Ox O2 Delivery O2 Flow Rate FiO2 12/27/16 08:00 98.2 44 20 135/80 95 12/27/16 05:12 97.5 41 16 128/77 95 12/27/16 00:08 97.5 43 16 149/84 96 12/26/16 20:42 46 12/26/16 20:00 Room Air 12/26/16 19:33 97.6 45 16 129/78 99 12/26/16 16:00 98.2 45 18 174/84 97 Pain scale used: 0-10 numeric scale Medications Current Medications Ondansetron HCl (Zofran Inj) 4 mg ONCE ONCE IVP Last administered on 14:26; Start 12/24/16 at 14:15; Stop 12/24/16 at 14:16; Status DC Hydromorphone HCl 1 mg 1 mg ONCE ONCE IVS Last administered on 12/24/16 14:27 ; Start 12/24/16 at 14:15; Stop 12/24/16 at 14:16; Status DC Vancomycin HCl 1000 mg/Sodium Chloride 250 ml @ 250 mls/hr ONCE ONCE IV Last administered on 12/24/16 14:27; Start 12/24/16 at 14:15; Stop 12/24/16 at 15:14 ; Status DC Sodium Chloride (NS 1000 ml Inj) 1,000 ml @ 42 mls/hr [id number] IV Last administered on 12/27/16 06:00; Start 12/24/16 at 15:11 Sodium Chloride (NS Flush) 2 ml UNSCH PRN IV FLUSH FLUSH AFTER USING IV ACCESS ; Start 12/24/16 at 15:15; Status UNV Sodium Chloride (NS Flush) 2 ml BID IV FLUSH ; Start 12/24/16 at 21:00; Status UNV Acetaminophen (Tylenol) 650 mg Q4H PRN PO TEMP > 100.4; Start 12/24/16 at 15:15 Ondansetron HCl (Zofran Inj) 4 mg Q6H PRN IVP NAUSEA OR VOMITING Last administered on 12/25/16 07:25; Start 12/24/16 at 15:15 Zolpidem Tartrate (Ambien) 5 mg HS PRN PO INSOMNIA; Start 12/24/16 at 15:15 Enoxaparin Sodium (Lovenox Inj) 40 mg Q24H SQ Last administered on 12/26/16 16 :41; Start 12/24/16 at 17:00 Acetaminophen/ Hydrocodone Bitart (Tiona 5-325 Mg) 1 tab Q4H PRN PO PAIN SCALE 3 TO 10 Last administered on 12/25/16 09:11; Start 12/24/16 at 15:15; Stop 12/25/16 at 12:39; Status DC Senna/Docusate Sodium (Tisha-Colace) 1 tab BID PO Last administered on 08:35; Start 12/24/16 at 21:00 Magnesium Hydroxide (Milk Of Magnesia Liq) 30 ml Q12H PRN PO MILD - MODERATE CONSTIPATION; Start 12/24/16 at 15:15 Sennosides (Senokot) 17.2 mg Q12H PRN PO MODERATE - SEVERE CONSTIPATION; Start 12/24/16 at 15:15 Bisacodyl (Dulcolax Supp) 10 mg DAILY PRN RECTAL SEVERE CONSITIPATION; Start at 15:15 Lactulose (Lactulose Liq) 30 ml DAILY PRN PO SEVERE CONSITIPATION; Start at 15:15 Sodium Chloride (NS Flush) 2 ml UNSCH PRN IV FLUSH FLUSH AFTER USING IV ACCESS ; Start 12/24/16 at 15:15 Sodium Chloride (NS Flush) 2 ml BID IV FLUSH Last administered on 12/27/16 08: 39; Start 12/24/16 at 21:00 Flumazenil (Romazicon Inj) 0.2 mg Q1M PRN IV PUSH SEE LABEL COMMENTS; Start at 15:15 Lorazepam (Ativan) 1 mg Q4H PRN PO CIWA 8 - 10 Last administered on 12/27/16 05:59; Start 12/24/16 at 15:15 Lorazepam (Ativan Inj) 1 mg Q4H PRN IV PUSH CIWA 8 - 10; Start 12/24/16 at 15: 15 Lorazepam (Ativan) 2 mg Q2H PRN PO CIWA 11-14 Last administered on 12/27/16 10 :36; Start 12/24/16 at 15:15 Lorazepam (Ativan Inj) 2 mg Q2H PRN IV PUSH CIWA 11-14; Start 12/24/16 at 15:15 Lorazepam (Ativan Inj) 2 mg Q1H PRN IV PUSH CIWA 15-20; Start 12/24/16 at 15:15 Lorazepam 2 mg 2 mg Q15M PRN IV PUSH CIWA > 20; Start 12/24/16 at 15:15 Pharmacy Profile Note 0 ml @ 0 mls/hr UNSCH OTHER ; Start 12/24/16 at 15:15; Status Cancel Vancomycin HCl/ Sodium Chloride (Vancomycin Inj/ NS 250 ml Inj) 250 ml @ 250 mls/hr Q12H IV Last administered on 12/26/16 02:00; Start 12/25/16 at 02:00; Stop 12/26/16 at 08:49; Status DC Enalaprilat (Vasotec Inj) 2.5 mg Q6H PRN IV PUSH SBP>160, DBP>90; Start at 15:30 Clonidine (Catapres) 0.1 mg Q6H PRN PO SBP>160, DBP>90, HR> 65; Start 12/24/16 at 15:30; Status Cancel Thiamine HCl (Vitamin B1) 100 mg ONCE ONCE PO Last administered on 12/24/16 17:31; Start 12/24/16 at 15:30; Stop 12/24/16 at 15:50; Status DC Thiamine HCl (Vitamin B1) 100 mg DAILY PO Last administered on 12/27/16 08:35 ; Start 12/25/16 at 09:00 Multivitamins (Theragran) 1 tab ONCE ONCE PO Last administered on 12/24/16 17 :31; Start 12/24/16 at 15:30; Stop 12/24/16 at 15:50; Status DC Multivitamins (Theragran) 1 tab DAILY PO Last administered on 12/27/16 08:35; Start 12/25/16 at 09:00 Folic Acid (Folate) 1 mg ONCE ONCE PO Last administered on 12/24/16 17:31; Start 12/24/16 at 15:30; Stop 12/24/16 at 15:50; Status DC Folic Acid (Folate) 1 mg DAILY PO Last administered on 12/27/16 08:35; Start 12/25/16 at 09:00 Miscellaneous Information SPECIFIC LAB TO BE WES... ONCE ONCE .XX Last administered on 12/26/16 01:45; Start 12/26/16 at 01:45; Stop 12/26/16 at 01:46 ; Status DC Acetaminophen/ Hydrocodone Bitart (Tiona 5-325 Mg) 1 tab Q4H PRN PO PAIN SCALE 4 TO 10 Last administered on 12/26/16 10:43; Start 12/25/16 at 12:00; Stop 12/26/16 at 14:39; Status DC Acetaminophen/ Hydrocodone Bitart 1 tab 1 tab ONCE ONCE PO Last administered on 12/25/16 21:57; Start 12/25/16 at 21:30; Stop 12/25/16 at 21:32; Status DC Vancomycin HCl/ Sodium Chloride (Vancomycin Inj/ NS 500 ml Inj) 517.5 ml @ 250 mls/hr Q12H IV Last administered on 12/26/16 11:38; Start 12/26/16 at 12:00; Stop 12/26/16 at 14:42; Status DC Miscellaneous Information SPECIFIC LAB TO BE DRAWN:VANCOMYCIN TROUGH DATE TO... ONCE ONCE .XX ; Start 12/28/16 at 11:45; Stop 12/28/16 at 11:46; Status Cancel Acetaminophen/ Hydrocodone Bitart 1 tab 1 tab Q4H PRN PO PAIN SCALE 4 TO 10 Last administered on 12/27/16 11:30; Start 12/26/16 at 14:45 Cefazolin Sodium/ Dextrose (Ancef 2 Gm Premix) 50 ml @ 100 mls/hr Q8H IV Last administered on 12/27/16 08:35; Start 12/26/16 at 16:00 Chlordiazepoxide (Librium) 10 mg TID PO Last administered on 12/27/16t 10:28; Start 12/27/16 at 10:00 Past, Family & Social History Past Medical History PFSH Reviewed: Yes Review of Systems Constitutional: COMPLAINS OF: Good general health, Pain Exam-Podiatry Constitutional General appearance: comfortable Nutritional status: normal Orientation: alert and oriented x3 Dermatological Exam Skin Temp - Right: Within Normal Limits Skin Texture - Right: Within Normal Limits Skin Elasticity - Right: Within Normal Limits Skin Tugor - Right: Within Normal Limits Hair Growth - Right: Within Normal Limits Pigmentation - Right: Within Normal Limits Skin Temp - Left: Within Normal Limits Skin Texture - Left: Within Normal Limits Skin Elasticity - Left: Within Normal Limits Skin Tugor - Left: Within Normal Limits Hair Growth - Left: Within Normal Limits Pigmentation - Left: Within Normal Limits Ulcers: Location/Measurements 1.5 cm x 1.5 cm x 0.4 cm deep ulceration on the anterior aspect of the right middle leg overlying the tibia. No purulence seen. Some surrounding erythema present. Culture and sensitivities growing out staph and strep. Vascular/Lymphatic Exam R Dorsails Pedis: Palpable L Dorsails Pedis: Palpable R Posterior Tibial: Palpable L Posterior Tibial: Palpable Neurologic Exam Details No neurological deficits seen Muscle Strength Dorsiflexion (Right): Normal Plantarflexion (Right): Normal Inversion (Right): Normal Eversion (Right): Normal Digital (Right): Normal Dorsiflexion (Left): Normal Plantarflexion (Left): Normal Inversion (Left): Normal Eversion (Left): Normal Digital (Left): Normal Foot Range of Motion Dorsiflexion (Right): Normal Plantarflexion (Right): Normal Inversion (Right): Normal Eversion (Right): Normal Digital (Right): Normal Dorsiflexion (Left): Normal Plantarflexion (Left): Normal Inversion (Left): Normal Eversion (Left): Normal Digital (Left): Normal Lab and Radiology Results Laboratory Remarks White cell count within normal range. Culture and sensitivity is growing staph and strep. Radiology Last Impressions Tibia/Fibula X-Ray 12/24/16 7972 Signed Impressions: Service Date/Time: Saturday, December 24, 2016 14:52 - CONCLUSION: No acute abnormality is identified Inderjit Crooks MD Chest X-Ray 12/24/16 1155 Signed Impressions: Service Date/Time: Saturday, December 24, 2016 12:04 - CONCLUSION: No acute disease. Conner Escobedo MD Assessment/Plan Problem List: (1) Cellulitis of right lower extremity Status: Acute (2) Ulcer of right lower extremity with necrosis of muscle Status: Acute Additional Plans & Procedures PLAN: Started the patient Maxorb extra AG dressings daily. Will follow him in the wound center after discharge. No baths or showers. Sponge bathe only. Discussed with nurse. Conner Brooke DPM Dec 27, 2016 12:41
[2016-12-27] MEDS: ENOXAPARIN SODIUM 40 MG/0.4 ML SYRINGE SQ SCH (16:14)
[2016-12-27] MEDS: ZOLPIDEM TARTRATE 5 MG TAB PO PRN (21:25)
[2016-12-28] VITALS (7 sets, daily range): BP systolic 112–149; BP diastolic 56–79; PULSE 39–52; RESP 18–20; TEMP 97.5–98.3; O2SAT 96–97
[2016-12-28] MEDS ORDERED: POTASSIUM CHLORIDE 20 MEQ CONTROLLED RELEASE TAB PO ONE (00:30)
[2016-12-28] MEDS: ceFAZolin 2 GM PREMIX 50 ML IV SCH ×3 (00:46→15:38)
[2016-12-28 02:16] LABS: BICARBONATE 27.4 MEQ/L (21.0-32.0); MAGNESIUM 2.1 MG/DL (1.5-2.5); POTASSIUM 4.1 MEQ/L (3.5-5.1)
[2016-12-28 02:19] LABS: FREE T4 0.93 NG/DL (0.76-1.46)
[2016-12-28] MEDS: MULTIVITAMIN TAB PO SCH (08:25)
[2016-12-28] MEDS: THIAMINE HCL 100 MG TAB PO SCH (08:25)
[2016-12-28] MEDS: ACETAMINOPHEN/HYDROcodone 325 MG/10 MG TAB PO PRN ×4 (08:26→21:38)
[2016-12-28] MEDS: DOCUSATE SODIUM 50 MG/SENNA 8.6 MG TAB PO SCH ×2 (08:27→21:38)
[2016-12-28] MEDS: FOLIC ACID 1 MG TAB PO SCH (08:27)
[2016-12-28] MEDS: SODIUM CHLORIDE 0.9% FLUSH 10 ML FLUSH IV FLUSH SCH ×2 (08:28→21:00)
[2016-12-28] MEDS ORDERED: PHARMACY ORDERED LAB ONE (11:45)
--- NOTE | 2016-12-28 14:50 | HHI.PR ---
Subjective Remarks + pain leg wound site Objective Vitals Vital Signs Date Time Temp Pulse Resp B/P Pulse Ox O2 Delivery O2 Flow Rate FiO2 12/28/16 12:03 98.2 42 18 112/56 96 12/28/16 10:00 Room Air 12/28/16 08:04 39 12/28/16 08:03 97.8 52 18 149/64 96 12/28/16 04:00 97.5 40 20 144/79 97 12/28/16 00:00 97.6 46 20 143/76 97 12/27/16 23:03 36 12/27/16 20:00 60 12/27/16 20:00 Room Air 12/27/16 20:00 97.4 58 20 146/72 95 12/27/16 17:34 48 12/27/16 17:34 96 Room Air 12/27/16 16:00 98.3 42 20 154/82 98 I/O 12/27/16 12/27/16 12/27/16 12/28/16 12/28/16 12/28/16 06:59 14:59 22:59 06:59 14:59 22:59 Intake Total 120 ml 840 ml 941 ml Output Total 350 ml Balance -230 ml 840 ml 941 ml Intake Oral 120 ml 840 ml IV Total 941 ml Output Urine Total 350 ml # Voids 4 # Bowel Movements 1 0 Result Diagram: 12/25/16 0511 12/28/16 0140 Imaging Last Impressions Tibia/Fibula X-Ray 12/24/16 1432 Signed Impressions: Service Date/Time: Saturday, December 24, 2016 14:52 - CONCLUSION: No acute abnormality is identified Inderjit Crokos MD Chest X-Ray 12/24/16 1155 Signed Impressions: Service Date/Time: Saturday, December 24, 2016 12:04 - CONCLUSION: No acute disease. Conner Escobedo MD Objective Remarks anicteric lungs clear HR 54 with occasional pause abdomen soft, nontender right LE-tibial surface- open wound/ulcer -still with minimal foul purulent drainage, minimal necrotic edges on one side with marked surrounding erythema, good ++ peripheral pulses A/P Assessment and Plan 56-year-old male whose only past medical history is significant for previous cardiac catheterization which revealed a small blockage in one vessel that did not require medical therapy per patient report who fell on the curb approximately 20 days ago resulting in a scratch of the right leg. States over the past several weeks the scratch has worsened becoming larger now with associated redness and pain. Right lower extremity MSSA ulcer/ wound with surrounding cellulitis - on IV ancef 2 gm q 8. Initially on IV Vancomycin - appreciate Dr. Brooke seeing patient- continue wound xare - PT eval/tx - Lortab 10 q 4 prn prn pain meds A1C 5.6 Elevated blood pressure- no history- monitor- better readings Bradycardia on exam - occasional pauses - good lipid panel - good EKG. . TSH normal - Will consult case management to assist with list of primary care providers patient follow up with as an outpatient Suspicion of alcohol abuse- mildly tremulous - Patient denies any history of alcohol withdrawal including tremors or seizures - CIWA protocol, rally pack. Seizure precautions - start on Librium tid - drug screen negative Tobacco use - Discussed smoking cessation/counseling DVT prophylaxis - Lovenox subcutaneous requesting for a cane on DC- PT Omari Cook MD Dec 28, 2016 14:50
[2016-12-28] MEDS: ENOXAPARIN SODIUM 40 MG/0.4 ML SYRINGE SQ SCH (16:23)
[2016-12-28] MEDS: SODIUM CHLOR 0.9% 1000 ML INJ 1,000 ML IV SCH (20:18)
[2016-12-28] MEDS: ZOLPIDEM TARTRATE 5 MG TAB PO PRN (21:40)
[2016-12-29] VITALS: BP 137/67; PULSE 44; RESP 20; TEMP 97.9; O2SAT 97
[2016-12-29] MEDS: ceFAZolin 2 GM PREMIX 50 ML IV SCH ×2 (00:15→08:07)
[2016-12-29 04:00] VITALS: BP 130/74; PULSE 40; RESP 20; TEMP 97.7; O2SAT 97
[2016-12-29] MEDS: SODIUM CHLOR 0.9% 1000 ML INJ 1,000 ML IV SCH (05:59)
[2016-12-29 08:00] VITALS: BP 171/91; PULSE 44; RESP 20; TEMP 98; O2SAT 97
[2016-12-29] MEDS: FOLIC ACID 1 MG TAB PO SCH (08:07)
[2016-12-29] MEDS: SODIUM CHLORIDE 0.9% FLUSH 10 ML FLUSH IV FLUSH SCH (08:07)
[2016-12-29] MEDS: MULTIVITAMIN TAB PO SCH (08:08)
[2016-12-29] MEDS: DOCUSATE SODIUM 50 MG/SENNA 8.6 MG TAB PO SCH (08:08)
[2016-12-29] MEDS: THIAMINE HCL 100 MG TAB PO SCH (08:08)
[2016-12-29] MEDS: ACETAMINOPHEN/HYDROcodone 325 MG/10 MG TAB PO PRN (08:09)
--- NOTE | 2016-12-29 08:53 | HHI.PR ---
Subjective Remarks no complains of pain, BP improved, no tremors po 100% Objective Vitals Vital Signs Date Time Temp Pulse Resp B/P Pulse Ox O2 Delivery O2 Flow Rate FiO2 12/29/16 04:00 97.7 40 20 130/74 97 12/29/16 04:00 Room Air 12/29/16 00:00 Room Air 12/29/16 00:00 97.9 44 20 137/67 97 12/28/16 20:00 45 12/28/16 20:00 Room Air 12/28/16 20:00 98.3 45 20 119/71 97 12/28/16 16:03 98.2 45 19 140/75 97 12/28/16 12:03 98.2 42 18 112/56 96 12/28/16 10:00 Room Air I/O 12/28/16 12/28/16 12/28/16 12/29/16 12/29/16 12/29/16 07:00 15:00 23:00 07:00 15:00 23:00 Intake Total 1097 ml 480 ml 1174 ml Balance 1097 ml 480 ml 1174 ml Intake Oral 380 ml 480 ml 480 ml IV Total 717 ml 694 ml # Voids 4 2 2 # Bowel Movements 0 1 0 Result Diagram: 12/25/16 0511 12/28/16 0140 Imaging Last Impressions Tibia/Fibula X-Ray 12/24/16 1432 Signed Impressions: Service Date/Time: Saturday, December 24, 2016 14:52 - CONCLUSION: No acute abnormality is identified Inderjit Crooks MD Chest X-Ray 12/24/16 1155 Signed Impressions: Service Date/Time: Saturday, December 24, 2016 12:04 - CONCLUSION: No acute disease. Conner Escobedo MD Objective Remarks anicteric lungs clear regular rhythm HR 50s abdomen soft, nontender right LE-tibial surface- open wound/ulcer -quarter size- dry, minimal serosanquinous on gauze, surround erythema- marked decreased, good peripheral pulses A/P Assessment and Plan 56-year-old male whose only past medical history is significant for previous cardiac catheterization which revealed a small blockage in one vessel that did not require medical therapy per patient report who fell on the curb approximately 20 days ago resulting in a scratch of the right leg. States over the past several weeks the scratch has worsened becoming larger now with associated redness and pain. Right lower extremity MSSA ulcer/ wound with surrounding cellulitis - clinically much improved - appreciate Dr. Brooke seeing patient- continue wound care- Maxsob Ag dressing daily,. no shower, sponge bath only - PT eval/tx - Lortab 10 q 8 prn pain meds A1C 5.6 Cephalexin 500 mg po qid on DC- OP ff up at wound care center Elevated blood pressure- no history- monitor- better readings Bradycardia - sinus BP stable - good lipid panel - good EKG. . TSH normal - Will consult case management to assist with list of primary care providers patient follow up with as an outpatient Suspicion of alcohol abuse- mildly tremulous- iomproved - Patient denies any history of alcohol withdrawal including tremors or seizures - CIWA protocol, rally pack. Seizure precautions - start on Librium tid=- decrease to 10 mg po bid x 2 days then dc - drug screen negative Tobacco use - Discussed smoking cessation/counseling DVT prophylaxis - Lovenox subcutaneous requesting for a cane on DC- consult for assistance with DC meds and Omari Forte MD Dec 29, 2016 08:53
[2016-12-29] MEDS ORDERED: CEPH500T PO (08:59)
[2016-12-29] MEDS ORDERED: CHLO10CA5 PO (09:00)
[2016-12-29] MEDS ORDERED: HYDR-3583 PO (09:01)
--- NOTE | 2016-12-29 09:11 | HHI.DS ---
Discharge Summary Admission Date Dec 24, 2016 at 15:18 Discharge Date: Dec 29, 2016 Admitting Diagnosis Brief History - From Admission Written by Tammie Bennett PA-C acting as scribe for Dr. Dahl on 12/24/16 at 15:15. This note was transcribed by scribe Tammie Bennett PA-C. I, Dr. Dayana Dahl personally performed the history, physical exam, and medical decision making; and confirmed the accuracy of the information in the transcribed note. Authenticated by Dr. Dayana Dahl on 12/24/16 at 15:15. This is a 56-year-old male whose only past medical history is significant for previous cardiac catheterization which revealed a small blockage in one vessel that did not require medical therapy per patient report who fell on the curb approximately 20 days ago resulting in a scratch of the right leg. States over the past several weeks the scratch has worsened becoming larger now with associated redness and pain despite his treatment of peroxide cleaning and application of triple antibiotic ointment. He is able to walk but states it is painful. He reports subjective fever and chills. He denies any nausea, vomiting or abdominal pain but states he has had diarrhea for the past week. Patient denies chest pain. He denies any previous history of diabetes but does report a family history of diabetes. He denies any history of IV drug use. Patient is noted to be smelling of alcohol. He reports having one beer earlier today. He does report being tremulous at this time which he states is due to the infection. He does not follow with a primary care physician. In the ED, patient is afebrile his white count is normal. X-ray of the right leg is pending. Blood pressure is slightly elevated 167/89. CBC/BMP: 12/25/16 0511 12/28/16 0140 Significant Findings Laboratory Tests Test 12/27/16 12/28/16 13:08 01:40 Thyroid Stimulating Hormone 4.090 uIU/ML 3rd Gen (0.358-3.740) Estimat Glomerular Filtration 76 ML/MIN (>89) Rate Imaging Last Impressions Tibia/Fibula X-Ray 12/24/16 1432 Signed Impressions: Service Date/Time: Saturday, December 24, 2016 14:52 - CONCLUSION: No acute abnormality is identified Inderjit Crooks MD Chest X-Ray 12/24/16 1155 Signed Impressions: Service Date/Time: Saturday, December 24, 2016 12:04 - CONCLUSION: No acute disease. Conner Escobedo MD PE at Discharge anicteric lungs clear regular rhythm HR 50s abdomen soft, nontender right LE-tibial surface- open wound/ulcer -quarter size- dry, minimal serosanquinous on gauze, surround erythema- marked decreased, good peripheral pulses Pt update on day of discharge no fever or chills up and ambulating/no pain complains wound looks good, erythema marked ded=ecrease Pt Condition on Discharge: Good Discharge Disposition: Discharge Home Discharge Time: <= 30 minutes Discharge Instructions DIET: Follow Instructions for: As Tolerated, No Restrictions Speech Therapy-Diet Recommends: Regular Activities you can perform: Weight Bearing as Param Activities to Avoid: Shower Other Activity Instructions: sponge bath only- see Dr. Brooke specific sinstrucitons Follow up Referrals: [facility] - 12/31/[address] Brooke New Medications: Cephalexin (Cephalexin) 500 Mg Tab 500 MG PO Q6H Infection Days 10 Ref 0 TAB Chlordiazepoxide HCl (Chlordiazepoxide HCl) 10 Mg Capsule 10 MG PO BID ETO #5 TAB Hydrocodone-Acetaminophen (Hydrocodone-Acetaminophen) 10-325 mg Tab 1 TAB PO Q8HR PRN PAIN SCALE 4 TO 10 #15 Ref 0 TAB Omari Cook MD Dec 29, 2016 09:11
[2016-12-29] MEDS ORDERED: ACETAMINOPHEN/HYDROcodone 325 MG/10 MG TAB PO PRN (14:00)
== END 2016-12-29 12:10 | disposition home or self-care (01) | DRG 603 ==
LOC: NEPC 11:37 → NEDA 15:18 → N04B 16:36
PROVIDERS: ADMIT Internal Medicine; ATTEND Internal Medicine
DX: L03.115 Cellulitis of right lower limb (principal); L97.813 Non-pressure chronic ulcer of other part of right lower leg with necrosis of muscle; R00.1 Bradycardia, unspecified; F17.210 Nicotine dependence, cigarettes, uncomplicated; F10.10 Alcohol abuse, uncomplicated; Z98.1 Arthrodesis status
CPT/HCPCS: 71010; 73590; 76937; 80048; 80053; 80061; 80202; 80307; 81001; 82948; 83036; 83605; 83735; 84439; 84443; 85025; 86403; 87040; 87070; 87147; 87186; 87205; 93005; 96365; 96375; E0100; J0690; J1170; J1650; J2405; J3370; J7030; J7040; J7050

== ENCOUNTER 2017-10-30 13:23 | Emergency (ER) | payer MEDICARE ==
[~2017-10-30] VITALS: Ht 180.3 cm; Wt 90.0 kg
[~2017-10-30 13:23] MED LIST changes: +CEPH500T PO; +CHLO10CA5 PO; +HYDR-3583 PO; -TYLE325T PO
[2017-10-30 13:36] VITALS: BP 150/74; PULSE 106; RESP 20; TEMP 98.5; O2SAT 94
--- NOTE | 2017-10-30 14:23 | PD ---
HPI Chief Complaint: Pain: Acute or Chronic Time Seen by Provider: 14:20 Travel History International Travel<30 days: No Contact w/Intl Traveler<30days: No Traveled to known affect area: No History of Present Illness HPI A 57-year-old male presents emergency department for evaluation of bilateral foot pain. Patient states his feet got wet as he is homeless and been walking around the past few days and this is been gradually worsening. He states is also been diagnosed with a superficial thrombosis in bilateral lower extremities in the past. Also noticed some redness and swelling in his legs. No shortness of breath no cough no congestion no abdominal pain nausea vomiting diarrhea constipation. Symptoms moderate, bilateral feet, duration as above, gradually worsening PFSH Past Medical History Arthritis: Yes Cardiovascular Problems: Yes Diminished Hearing: No Migraines: Yes Past Surgical History Abdominal Surgery: Yes Thoracic Surgery: Yes Social History Alcohol Use: No Tobacco Use: Yes Substance Use: No Allergies-Medications (Allergen,Severity, Reaction): Coded Allergies: No Known Allergies (Unverified Adverse Reaction, Unknown, 10/30/17) Reported Meds & Prescriptions Reported Meds & Active Scripts Active Bactrim DS (Sulfamethoxazole-Trimethoprim) 800-160 Mg Tab 1 Tab PO BID Review of Systems Except as stated in HPI: all other systems reviewed are Neg Physical Exam Narrative GENERAL: Well-developed well-nourished no obvious distress SKIN: Focused skin assessment warm/dry. There is a small abrasion to the arch of the right foot. Clean and no foreign body, probably consistent with prolonged exposure to moist environment, does not appear to be actively infected. No cellulitis. There is also some redness and some small petechial spotting of the right lower extremity. HEAD: Atraumatic. Normocephalic. EYES: Pupils equal and round. No scleral icterus. No injection or drainage. ENT: No nasal bleeding or discharge. Mucous membranes pink and moist. NECK: Trachea midline. No JVD. CARDIOVASCULAR: Regular rate and rhythm. No murmur appreciated. RESPIRATORY: No accessory muscle use. Clear to auscultation. Breath sounds equal bilaterally. GASTROINTESTINAL: Abdomen soft, non-tender, nondistended. Hepatic and splenic margins not palpable. MUSCULOSKELETAL: No obvious deformities. No clubbing. No cyanosis. There is pitting edema to bilateral lower extremities from mid tibia distally. NEUROLOGICAL: Awake and alert. No obvious cranial nerve deficits. Motor grossly within normal limits. Normal speech. PSYCHIATRIC: Appropriate mood and affect; insight and judgment normal. Data Data Last Documented VS Vital Signs Date Time Temp Pulse Resp B/P (MAP) Pulse Ox O2 Delivery O2 Flow Rate FiO2 10/30/17 13:36 98.5 106 20 150/74 (99) 94 Orders Orders Us Leg Venous Doppler Bilat (10/30/17 14:27) Chest, Pa & Lat (10/30/17 ) Complete Blood Count With Diff (10/30/17 14:28) Comprehensive Metabolic Panel (10/30/17 14:28) Act Partial Throm Time (Ptt) (10/30/17 14:28) Prothrombin Time / Inr (Pt) (10/30/17 14:28) Ibuprofen (Motrin) (10/30/17 14:30) Ed Discharge Order (10/30/17 16:55) Labs Laboratory Tests Test 10/30/17 15:15 White Blood Count 5.9 TH/MM3 Red Blood Count 3.92 MIL/MM3 Hemoglobin 13.5 GM/DL Hematocrit 38.6 % Mean Corpuscular Volume 98.4 FL Mean Corpuscular Hemoglobin 34.3 PG Mean Corpuscular Hemoglobin Concent 34.9 % Red Cell Distribution Width 13.5 % Platelet Count 165 TH/MM3 Mean Platelet Volume 8.4 FL Neutrophils (%) (Auto) 72.3 % Lymphocytes (%) (Auto) 18.8 % Monocytes (%) (Auto) 7.0 % Eosinophils (%) (Auto) 1.5 % Basophils (%) (Auto) 0.4 % Neutrophils # (Auto) 4.2 TH/MM3 Lymphocytes # (Auto) 1.1 TH/MM3 Monocytes # (Auto) 0.4 TH/MM3 Eosinophils # (Auto) 0.1 TH/MM3 Basophils # (Auto) 0.0 TH/MM3 CBC Comment DIFF FINAL Differential Comment Prothrombin Time 9.7 SEC Prothromb Time International Ratio 1.0 RATIO Activated Partial Thromboplast Time 24.5 SEC Blood Urea Nitrogen 10 MG/DL Creatinine 0.92 MG/DL Random Glucose 127 MG/DL Total Protein 7.2 GM/DL Albumin 3.8 GM/DL Calcium Level 8.5 MG/DL Alkaline Phosphatase 81 U/L Aspartate Amino Transf (AST/SGOT) 111 U/L Alanine Aminotransferase (ALT/SGPT) 74 U/L Total Bilirubin 0.3 MG/DL Sodium Level 141 MEQ/L Potassium Level 3.7 MEQ/L Chloride Level 106 MEQ/L Carbon Dioxide Level 25.7 MEQ/L Anion Gap 9 MEQ/L Estimat Glomerular Filtration Rate 85 ML/MIN MDM Medical Decision Making Medical Screen Exam Complete: Yes Emergency Medical Condition: Yes Differential Diagnosis Partial circumstance, DVT, cellulitis, small amount of skin breakdown from prolonged moist environment exposure. Narrative Course Patient room to the emergency department, symptoms probably more likely due from prolonged moisture exposure. Do not see any obvious infection but will be covered with empiric Bactrim, DVT ultrasound negative, basic labs reassuring, chest x-ray shows no fluid on the lungs. He is stable for discharge follow-up with primary care physician or the [facility]. Discussed returning to criteria Diagnosis Primary Impression: Cellulitis of right lower extremity Referrals: [facility] Patient Instructions: Cellulitis (DC), General Instructions Med/Other Pt SpecificInfo: Prescription(s) given Scripts Sulfamethoxazole-Trimethoprim (Bactrim DS) 800-160 Mg Tab 1 TAB PO BID for Infection, #14 TAB 0 Refills Prov: Nima See MD 10/30/17 Disposition: DISCHARGE HOME Condition: Stable Nima See MD October 30, 2017 14:23
[2017-10-30] MEDS ORDERED: IBUPROFEN 600 MG TAB PO ONE (14:30)
--- NOTE | 2017-10-30 15:05 | RADRPT ---
EXAM DATE: 10/30/2017 2:56 PM EDT AGE/SEX: 57 years / Male INDICATIONS: Chest pain CLINICAL DATA: This is the patient's initial encounter. Patient reports that signs and symptoms have been present for 4 - 6 days and indicates a pain score of 3/10. MEDICAL/SURGICAL HISTORY: Cardiovascular disease. . COMPARISON: None. FINDINGS: PA and lateral views of the chest demonstrate the lungs to be symmetrically aerated without evidence of mass, infiltrate or effusion. The cardiomediastinal contours are unremarkable. Osseous structures are intact. CONCLUSION: Negative examination. Electronically signed by: Gatito Leos MD 10/30/2017 3:04 PM EDT
[2017-10-30 15:59] LABS: AUTOMATED NEUTROPHIL # 4.2 TH/MM3 (1.8-7.7); BASOPHIL % 0.4 % (0.0-2.0); EOSINOPHIL # 0.1 TH/MM3 (0-0.4); EOSINOPHIL % 1.5 % (0.0-4.0); HEMATOCRIT 38.6 % (39.0-51.0); HEMOGLOBIN 13.5 GM/DL (13.0-17.0); LYMPH % 18.8 % (9.0-44.0); LYMPHOCYTE # 1.1 TH/MM3 (1.0-4.8); MEAN CELL VOLUME 98.4 FL (80.0-100.0); MEAN CORPUSCULAR HEMOGLOBIN 34.3 PG (27.0-34.0); MEAN CORPUSCULAR HGB CONC 34.9 % (32.0-36.0); MEAN PLATELET VOLUME 8.4 FL (7.0-11.0); MONOCYTE # 0.4 TH/MM3 (0-0.9); NEUT % 72.3 % (16.0-70.0); PLATELET COUNT 165 TH/MM3 (150-450); RED BLOOD COUNT 3.92 MIL/MM3 (4.50-5.90); RED CELL DISTRIBUTION WIDTH 13.5 % (11.6-17.2); WHITE BLOOD COUNT 5.9 TH/MM3 (4.0-11.0)
[2017-10-30 16:05] LABS: ALBUMIN 3.8 GM/DL (3.4-5.0); AST (GOT) 111 U/L (15-37); BICARBONATE 25.7 MEQ/L (21.0-32.0); BLOOD UREA NITROGEN 10 MG/DL (7-18); CALCIUM 8.5 MG/DL (8.5-10.1); CHLORIDE 106 MEQ/L (98-107); CREATININE 0.92 MG/DL (0.60-1.30); GLOMERULAR FILTRATION RATE 85 ML/MIN (>89); GLUCOSE,RANDOM 127 MG/DL (74-106); PROTHROMBIN TIME - PATIENT 9.7 SEC (9.8-11.6); SODIUM (NA) 141 MEQ/L (136-145)
[2017-10-30 16:06] LABS: ALT (GPT) 74 U/L (12-78)
[2017-10-30 16:08] LABS: ALKALINE PHOSPHATASE 81 U/L (45-117); TOTAL BILIRUBIN ADULT 0.3 MG/DL (0.2-1.0); TOTAL PROTEIN 7.2 GM/DL (6.4-8.2)
--- NOTE | 2017-10-30 16:41 | RADRPT ---
EXAM DATE: 10/30/2017 4:33 PM EDT AGE/SEX: 57 years / Male INDICATIONS: Bilateral leg pain. CLINICAL DATA: This is the patient's initial encounter. Patient reports that signs and symptoms have been present for 1 day and indicates a pain score of 7/10. MEDICAL/SURGICAL HISTORY: Hypertension. Cardiovascular disease. . Lumbar fracture. Cervical fu sions. COMPARISON: . No external comparison. TECHNIQUE: Venous ultrasound of both lower extremities was performed from the inguinal ligament to t he proximal calf. Real-time, color Doppler and spectral tracing, compression and augmentation techni ques were used. FINDINGS: Right Leg: There is normal compressibility of the deep venous system from the inguinal region to the proximal calf. No echogenic clot is seen in the lumen of the common femoral, femoral, popliteal, an d posterior tibial veins. There is a normal response of the venous system to proximal and distal aug mentation and respiration. Left Leg: There is normal compressibility of the deep venous system from the inguinal region to the proximal calf. No echogenic clot is seen in the lumen of the common femoral, femoral, popliteal, and posterior tibial veins. There is a normal response of the venous system to proximal and distal augm entation and respiration. CONCLUSION: 1. The study is negative for bilateral lower extremity deep venous thrombosis. Electronically signed by: Gatito Leos MD 10/30/2017 4:40 PM EDT
[2017-10-30] MEDS ORDERED: BACT800T5 PO (16:53)
== END 2017-10-30 17:34 | disposition home or self-care (01) ==
LOC: NEPD 13:23
DX: L03.115 Cellulitis of right lower limb (principal); Z72.0 Tobacco use
CPT/HCPCS: 71046; 80053; 85025; 85610; 85730; 93970

== ENCOUNTER 2017-11-20 12:51 | Emergency (ER) | payer MEDICARE ==
[~2017-11-20] VITALS: Ht 180.3 cm; Wt 90.9 kg
[~2017-11-20 12:51] MED LIST changes: +BACT800T5 PO; -CEPH500T PO; -CHLO10CA5 PO; -HYDR-3583 PO
[2017-11-20 13:13] VITALS: BP 129/59; PULSE 90; RESP 18; TEMP 99.1; O2SAT 96
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
== END 2017-11-20 16:22 | disposition home or self-care (01) ==
LOC: NEPD 12:51
DX: F10.129 Alcohol abuse with intoxication, unspecified (principal); F41.9 Anxiety disorder, unspecified; F32.9 Major depressive disorder, single episode, unspecified; I10 Essential (primary) hypertension; F17.200 Nicotine dependence, unspecified, uncomplicated; F12.90 Cannabis use, unspecified, uncomplicated
CPT/HCPCS: 99283

== ENCOUNTER 2018-01-07 05:24 | Inpatient (IN) ==
[2018-01-07] MEDS ORDERED: Morphine Inj 4 MG/ML Vial IV.PUSH ONE (05:59)
[2018-01-07 06:23] LABS: Hematocrit 33.9 % (39.0-51.0); Hemoglobin 11.8 gm/dL (13.0-17.0); Mean Corpuscular HGB Conc 34.8 % (32.0-36.0); Mean Corpuscular Hemoglobin 35.5 pg (27.0-34.0); Mean Corpuscular Volume 102.1 fL (80.0-100.0); Mean Platelet Volume 8.4 fL (7.0-11.0); Platelet Count 120 th/mm3 (150-450); Red Blood Count 3.32 mil/mm3 (4.50-5.90); Red Cell Distribution Width 15.2 % (11.6-17.2); White Blood Count 16.6 th/mm3 (4.0-11.0)
[2018-01-07] MEDS ORDERED: Clindamycin 900 mg/NS Premix 900 MG/50 ML PIGGYBACK IV.SIG ONE (06:29)
--- NOTE | 2018-01-07 06:45 | XR ---
EXAM DATE: 01/07/2018 6:39 AM EDT AGE/SEX: 57 years / Male INDICATIONS: Pain. CLINICAL DATA: This is the patient's initial encounter. Patient reports that signs and symptoms have been present for 1 day and indicates a pain score of 10/10. MEDICAL/SURGICAL HISTORY: . Hypertension. Cardiovascular disease. . Lumbar fracture. Cervica l fusions.Hernia repair. Left foot. COMPARISON: No prior exams available for comparison. FINDINGS: The bony structures of the elbow are in normal alignment. No definite fracture seen. The anterior fat pad is prominent, but does not appear to be displaced. The posterior fat pad is not visualized. Ther e is moderate soft tissue swelling about the olecranon. No radiopaque foreign bodies seen. CONCLUSION: 1. Soft tissue swelling about the olecranon. 2. No fracture or dislocation seen. Electronically signed by: Gatito Hernandez MD 01/07/2018 6:44 AM EDT
--- NOTE | 2018-01-07 06:46 | XR ---
EXAM DATE: 01/07/2018 6:41 AM EDT AGE/SEX: 57 years / Male INDICATIONS: Pain. CLINICAL DATA: This is the patient's initial encounter. Patient reports that signs and symptoms have been present for 1 day and indicates a pain score of 10/10. MEDICAL/SURGICAL HISTORY: . Hypertension. Cardiovascular disease. . Lumbar fracture. . . Cer vical fusions. Hernia repair. Left foot. COMPARISON: No prior exams available for comparison. FINDINGS: Bony structures are intact and in normal alignment. Osseous density is normal. Soft tissues are unre markable. No radiopaque foreign bodies seen. CONCLUSION: No evidence of recent bony injury. Electronically signed by: Gatito Hernandez MD 01/07/2018 6:45 AM EDT
--- NOTE | 2018-01-07 06:48 | XR ---
EXAM DATE: 01/07/2018 6:43 AM EDT AGE/SEX: 57 years / Male INDICATIONS: Pain. CLINICAL DATA: This is the patient's initial encounter. Patient reports that signs and symptoms have been present for 1 day and indicates a pain score of 10/10. MEDICAL/SURGICAL HISTORY: . Hypertension. Cardiovascular disease. . Lumbar fracture. . Cervic al fusions. Hernia repair. Left foot. COMPARISON: No prior exams available for comparison. FINDINGS: Bony structures are intact and in normal alignment. Osseous density is normal. Soft tissues are unre markable. No radiopaque foreign bodies seen. CONCLUSION: No evidence of recent bony injury. Electronically signed by: Gatito Hernandez MD 01/07/2018 6:46 AM EDT
--- NOTE | 2018-01-07 06:48 | XR ---
EXAM DATE: 01/07/2018 6:42 AM EDT AGE/SEX: 57 years / Male INDICATIONS: Pain. CLINICAL DATA: This is the patient's initial encounter. Patient reports that signs and symptoms have been present for 1 day and indicates a pain score of 10/10. MEDICAL/SURGICAL HISTORY: . Hypertension. Cardiovascular disease. . Lumbar fracture. . Cervi omkar fusions. Hernia repair. Left foot. COMPARISON: No prior exams available for comparison. FINDINGS: The osseous structures of the hand are grossly intact. There is some angulation of the distal metaphy sis of the fifth metacarpus without discernible fracture line suggesting possible old healed boxer's fracture. No significant soft tissue swelling. The carpus is in normal alignment. No radiopaque forei gn bodies. CONCLUSION: Probable old boxer's fracture. No evidence of recent bony injury. Electronically signed by: Gatito Hernandez MD 01/07/2018 6:46 AM EDT
[2018-01-07 06:55] LABS: Anion Gap 15 meq/L (5-15); Blood Urea Nitrogen 4 mg/dL (7-18); Calcium 8.5 mg/dL (8.5-10.1); Carbon Dioxide 22.8 meq/L (21.0-32.0); Chloride 92 meq/L (98-107); Glomerular Filtration Rate Greater Than 89 mL/min (>89); Glucose,Random 128 mg/dL (74-106); Potassium 3.1 meq/L (3.5-5.1); Sodium 130 meq/L (136-145)
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
[2018-01-07] MEDS ORDERED: Haloperidol Inj 5 MG/ML Ampul IV.PUSH PRN (08:02)
[2018-01-07] MEDS ORDERED: Bisacodyl 10 MG Supp RECTAL PRN (08:07)
[2018-01-07] MEDS ORDERED: Acetaminophen 325 MG Tablet PO PRN (08:08)
[2018-01-07] MEDS ORDERED: Naloxone Inj 0.4 MG/ML Vial IV.PUSH PRN (08:08)
[2018-01-07] MEDS: LORazepam 1 MG Tablet PO PRN (08:38)
[2018-01-07] MEDS: Folic Acid 1 MG Tablet PO SCH (08:38)
[2018-01-07] MEDS: Senna/Docusate Sodium 8.6/50 MG Tablet PO SCH ×2 (08:38→21:04)
[2018-01-07 08:49] LABS: Magnesium 1.7 mg/dL (1.5-2.5); Phosphorus 2.4 mg/dL (2.5-4.9)
[2018-01-07] MEDS: Multivitamin/Minerals Therapeutic Tablet PO SCH (09:18)
[2018-01-07] MEDS: Morphine Inj 4 MG/ML Vial IV.PUSH PRN ×3 (10:06→19:46)
--- NOTE | 2018-01-07 10:50 | P.HP ---
History of Present Illness Primary Care Physician: No Primary Care Physician History of Present Illness: This is a 57-year-old male with a history of alcohol and tobacco abuse. Family history of CAD father with [place]. He presents to the emergency room because of alcohol withdrawal symptoms and right upper extremity pain and swelling. Patient states he cannot walk. He has decided to quit alcohol and tobacco as of yesterday. He also reports of right upper extremity pain, swelling and redness. Admits to subjective intermittent fever and chills. He has scabs in the right upper extremity as well as bilateral lower extremities. He received IV clindamycin for cellulitis in the emergency department. All other systems reviewed negative Inpatient Certification: I certify that the inpatient services were ordered in accordance with Medicare regulations governing the order. This includes certification that hospital inpatient services are reasonable and necessary and in the case of services not specified as inpatient-only under 42 CFR 419.22(n), that they are appropriately provided as inpatient services in accordance to with the 2-midnight benchmark under 43 CFR 412.3(e) Estimated Total Length of Stay (Days): 2 Plans for Post Hospital Care: Not yet determined [facility] - History History Provided By: Patient - Medical / Surgical Hx Neg / Unobtainable Medical Problems Denied: Yes - Medical History Medical History: Medical History (Last Reviewed 01/07/18 @ 06:51 by Judy Benitez MD) Patient denies medical problems - Surgical History Surgical History: Surgical History (Last Reviewed 01/07/18 @ 06:51 by Judy Benitez MD) History of nasal surgery Hx of abdominal surgery Hx of foot surgery Hx of hand surgery Hx of neck surgery - Family History Family History: Family History (Last Updated 01/07/18 @ 10:43 by Tobias Castro MD) Other CAD (coronary artery disease) - Tobacco History Smoking Status: Former smoker - Alcohol History How Often Do You Have a Drink Containing Alcohol: 4 or more times a week - Substance Use History Substance History: No History of Abuse - Travel History Recent Travel in the [place] Within the Last 8 Weeks: No Recent Travel Out of the Country Within the Last 8 Weeks: No - Immunization History Tetanus Immunization: Unsure Hx Influenza Vaccine This Season: No Medications and Allergies Active Medications: Active Medications Acetaminophen (Tylenol) 650 mg PO Q6HR PRN PRN Reason: PAIN SCALE 1 TO 2 Hydrocodone Bitart/Acetaminophen ([place] 10/325) 1 tab PO Q4H PRN PRN Reason: PAIN SCALE 6 TO 10 Last Admin: 01/07/18 08:37 Dose: 1 tab Hydrocodone Bitart/Acetaminophen ([place] 5/325) 1 tab PO Q4H PRN PRN Reason: PAIN SCALE 3 TO 5 Al Hydroxide/Mg Hydroxide (Milk Of Magnesia Liq) 30 ml PO Q12H PRN PRN Reason: Mild Constipation Bisacodyl (Dulcolax Supp) 10 mg RECTAL DAILY PRN PRN Reason: SEVERE CONSITIPATION Chlordiazepoxide (Librium) 25 mg PO Q8H MIAH Clonidine HCl (Catapres) 0.1 mg PO Q6H PRN PRN Reason: For SBP >/= 180, DBP >/= 100 Flumazenil (Romazecon Inj) 0.2 mg IV.PUSH Q1M PRN PRN Reason: OVERSEDATION Folic Acid (Folic Acid) 1 mg PO DAILY [facility] Stop: 01/12/18 08:59 Last Admin: 01/07/18 08:38 Dose: 1 mg Haloperidol Lactate (Haldol Inj) 1 mg IV.PUSH Q15M PRN PRN Reason: for severe agitation Potassium Chloride/Sodium Chloride (Ns + Kcl 20 Meq Inj) 1,000 mls @ 100 mls/ hr IV.CONT .Q10H [facility] Last Admin: 01/07/18 09:18 Dose: 100 mls/hr Lactulose (Lactulose Liq) 30 ml PO DAILY PRN PRN Reason: SEVERE CONSITIPATION Lorazepam (Ativan) 2 mg PO Q2H PRN PRN Reason: for CIWA 11-14 Lorazepam (Ativan Inj) 2 mg IV.PUSH Q2H PRN PRN Reason: for CIWA 11-14 Lorazepam (Ativan Inj) 2 mg IV.PUSH Q1H PRN PRN Reason: for CIWA 15-20 Lorazepam (Ativan Inj) 2 mg IV.PUSH Q15M PRN PRN Reason: for CIWA > 20 Lorazepam (Ativan Inj) 1 mg IV.PUSH Q4H PRN PRN Reason: for CIWA 8-10 Lorazepam (Ativan) 1 mg PO Q4H PRN PRN Reason: for CIWA 8-10 Last Admin: 01/07/18 08:38 Dose: 1 mg Morphine Sulfate (Morphine Inj) 2 mg IV.PUSH Q3H PRN PRN Reason: BREAKTHROUGH PAIN Last Admin: 01/07/18 10:06 Dose: 2 mg Multivitamins/Minerals (Theragran-M) 1 tab PO DAILY [facility] Stop: 01/12/18 08:59 Last Admin: 01/07/18 09:18 Dose: 1 tab Naloxone HCl (Narcan Inj) 0.4 mg IV.PUSH UNSCH PRN PRN Reason: SEE LABEL COMMENTS Ondansetron HCl (Zofran Inj) 4 mg IV.PUSH Q6H PRN PRN Reason: NAUSEA OR VOMITING Last Admin: 01/07/18 10:05 Dose: 4 mg Potassium Phos/Sodium Phos (K-Phos Neutral) 250 mg PO BID [facility] Senna/Docusate Sodium (Tisha-Colace) 1 tab PO BID [facility] Last Admin: 01/07/18 08:38 Dose: Not Given Sennosides (Senokot) 17.2 mg PO Q12H PRN PRN Reason: Moderate Constipation Thiamine HCl (Vitamin B1) 100 mg PO DAILY [facility] Last Admin: 01/07/18 08:37 Dose: 100 mg Allergies Allergy/AdvReac Type Severity Reaction Status Date / Time No Known Allergies Allergy Verified 01/07/18 05:56 Home Medications Medication Instructions Recorded Confirmed Type No Known Home Medications 01/07/18 01/07/18 History Exam Vital signs: Vital Signs 01/07/18 05:45 01/07/18 07:03 01/07/18 08:37 Temperature 99.1 F Pulse Rate 106 H 97 H Respiratory Rate 18 20 16 Blood Pressure 155/85 H 156/83 H Pulse Oximetry 95 95 01/07/18 08:53 01/07/18 10:00 Temperature Pulse Rate 100 H Respiratory Rate 19 18 Blood Pressure 165/78 H Pulse Oximetry 94 L Intake & Output 01/06/18 01/07/18 01/07/18 18:59 06:59 18:59 Intake Total 591 / 591 Output Total 225 / 225 Balance 366 / 366 Intake: Oral 591 / 591 Output: Urine 225 / 225 Narrative: GENERAL: Well-developed, well-nourished unkempt male SKIN: Warm and dry. HEAD: Atraumatic. Normocephalic. EYES: Pupils equal and round. No scleral icterus. No injection or drainage. ENT: No nasal bleeding or discharge. Mucous membranes pink and moist. NECK: Trachea midline. No JVD. CARDIOVASCULAR: Tachycardic regular rhythm RESPIRATORY: No accessory muscle use. Clear to auscultation. Breath sounds equal bilaterally. GASTROINTESTINAL: Abdomen soft, non-tender, nondistended. MUSCULOSKELETAL: Extremities without clubbing, cyanosis, or edema. No obvious deformities. Cellulitis involving the right forearm with scabs. He also has cellulitis surrounding scabs of both legs anteriorly NEUROLOGICAL: Awake and alert. No obvious cranial nerve deficits. Motor grossly within normal limits. Five out of 5 muscle strength in the arms and legs. Normal speech. Tremors noted denies hallucinations PSYCHIATRIC: Appropriate mood and affect; insight and judgment normal. Results - Labs CBC & Chem 7: 01/07/18 06:12 01/07/18 06:12 Labs: Laboratory Results - last 24 hr 01/07/18 01/07/18 01/07/18 06:12 06:12 06:12 WBC 16.6 H RBC 3.32 L Hgb 11.8 L Hct 33.9 L MCV 102.1 H MCH 35.5 H MCHC 34.8 RDW 15.2 Plt Count 120 L MPV 8.4 Sodium 130 L Potassium 3.1 L Chloride 92 L Carbon Dioxide 22.8 Anion Gap 15 BUN 4 L Creatinine 0.67 Estimated GFR Greater than 89 Random Glucose 128 H Calcium 8.5 Phosphorus 2.4 L Magnesium 1.7 - Imaging Impressions Elbow X-Ray 01/07/18 05:59 CONCLUSION: 1. Soft tissue swelling about the olecranon. 2. No fracture or dislocation seen. Forearm X-Ray 01/07/18 05:59 CONCLUSION: No evidence of recent bony injury. Hand X-Ray 01/07/18 05:59 CONCLUSION: Probable old boxer's fracture. No evidence of recent bony injury. Humerus X-Ray 01/07/18 05:59 CONCLUSION: No evidence of recent bony injury. Caprini VTE Risk Assessment Caprini VTE Risk Assessment: No/Low Risk (score <= 1) Caprini Risk Assessment Model: Point Value = 1 Point Value = 2 Point Value = 3 Point Value = 5 Age 41-60 Minor surgery BMI > 25 kg/m2 Swollen legs Varicose veins or History of unexplained or recurrent spontaneous Oral contraceptives or hormone replacement Sepsis (< 1 month) Serious lung disease, including pneumonia (< 1 month) Abnormal pulmonary function Acute myocardial infarction Congestive heart failure (< 1 month) History of inflammatory bowel disease Medical patient at bed rest Age 61-74 Arthroscopic surgery Major open surgery (> 45 min) Laparoscopic surgery (> 45 min) Malignancy Confined to bed (> 72 hours) Immobilizing plaster cast Central venous access Age >= 75 History of VTE Family history of VTE Factor V Leiden Prothrombin [id number] Lupus anticoagulant Anticardiolipin antibodies Elevated serum homocysteine Heparin-induced thrombocytopenia Other congenital or acquired thrombophilia Stroke (< 1 month) Elective arthroplasty Hip, pelvis, or leg fracture Acute spinal cord injury (< 1 month) Prophylaxis Regimen: Total Risk Factor Score Risk Level Prophylaxis Regimen 0-1 Low Early ambulation 2 Moderate Order ONE of the following: *Sequential Compression Device (SCD) *Heparin 5000 units SQ BID 3-4 Higher Order ONE of the following medications: *Heparin 5000 units SQ TID *Enoxaparin/Lovenox 40 mg SQ daily (WT < 150 kg, CrCl > 30 mL/min) *Enoxaparin/Lovenox 30 mg SQ daily (WT < 150 kg, CrCl > 10-29 mL/min) *Enoxaparin/Lovenox 30 mg SQ BID (WT < 150 kg, CrCl > 30 mL/min) AND/OR *Sequential Compression Device (SCD) 5 or more Highest Order ONE of the following medications: *Heparin 5000 units SQ TID (Preferred with Epidurals) *Enoxaparin/Lovenox 40 mg SQ daily (WT < 150 kg, CrCl > 30 mL/min) *Enoxaparin/Lovenox 30 mg SQ daily (WT < 150 kg, CrCl > 10-29 mL/min) *Enoxaparin/Lovenox 30 mg SQ BID (WT < 150 kg, CrCl > 30 mL/min) AND *Sequential Compression Device (SCD) Assessment and Plan - Plan This is a 57-year-old male with a history of alcohol and tobacco abuse. He presents to the emergency room because of alcohol withdrawal symptoms and right upper extremity pain and swelling. Right upper extremity and bilateral lower extremity cellulitis. Patient also has sepsis. Patient received IV clindamycin. Start Ancef and IV hydration. Check lactic acid. Pain management with Lortab and IV morphine counseled regarding narcotics. Alcohol withdrawal. Counseled. [place] protocol. Scheduled Librium. Case management consult Hyponatremia, hypokalemia and hypophosphatemia secondary to alcohol. Start NS IV hydration and replace potassium with 60 mEq p.o. 1 and potassium phosphate 250 mg twice a day. Repeat BMP, magnesium and phosphorus in the morning Mild thrombocytopenia secondary to sepsis and alcohol. Repeat CBC in the morning. Fall risk patient states he cannot walk. Physical therapy evaluation DVT prophylaxis with SCD Discharge Planning: [facility] vs SNF
[2018-01-07] MEDS: chlordiazePOXIDE 25 MG Capsule PO SCH ×2 (12:05→19:48)
[2018-01-07] MEDS: Potassium Phos/Sodium Phos 250 MG Tablet PO SCH ×2 (12:05→21:03)
[2018-01-07] MEDS ORDERED: Sod Chloride 0.9% Inj 2,000 ML IV.SIG ONE (13:43)
[2018-01-07] MEDS ORDERED: Sodium Chlor 0.9% Inj 500 ML IV.SIG ONE (13:43)
[2018-01-07] MEDS ORDERED: Vancomycin Consult Pharmacy 1 EACH OTHER SCH (15:49)
[2018-01-07] MEDS ORDERED: Vancomycin Inj 1,250 MG in Sodium Chlor 0.9% Inj 250 ML IV.SIG ONE (15:51)
--- NOTE | 2018-01-07 17:12 | P.PNVS ---
Subjective Subjective/Hospital Course: patient with cellulitis/phlegmon R forearm and elbow area/scab/ No fluctuance, crepitus or drainage. Cellulitis, not necrotizing fasciitis. Full consult dictated J Objective Vital Signs / I&O: Vital Signs 01/07/18 05:45 01/07/18 07:03 01/07/18 08:37 Temperature 99.1 F Pulse Rate 106 H 97 H Respiratory Rate 18 20 16 Blood Pressure 155/85 H 156/83 H Pulse Oximetry 95 95 01/07/18 08:53 01/07/18 10:00 01/07/18 11:07 Temperature Pulse Rate 100 H 91 H Respiratory Rate 19 18 Blood Pressure 165/78 H Pulse Oximetry 94 L 01/07/18 12:00 Temperature 97.9 F Pulse Rate 93 H Respiratory Rate 18 Blood Pressure 156/85 H Pulse Oximetry 94 L Intake & Output 01/06/18 01/07/18 01/07/18 18:59 06:59 18:59 Intake Total 591 / 591 Output Total 225 / 225 Balance 366 / 366 Weight 91 kg Intake: Oral 591 / 591 Output: Urine 225 / 225 Other: Weight On Admission 91 kg Laboratory Results - last 24 hr 01/07/18 01/07/18 01/07/18 06:12 06:12 06:12 WBC 16.6 H RBC 3.32 L Hgb 11.8 L Hct 33.9 L MCV 102.1 H MCH 35.5 H MCHC 34.8 RDW 15.2 Plt Count 120 L MPV 8.4 Sodium 130 L Potassium 3.1 L Chloride 92 L Carbon Dioxide 22.8 Anion Gap 15 BUN 4 L Creatinine 0.67 Estimated GFR Greater than 89 Random Glucose 128 H Lactic Acid Calcium 8.5 Phosphorus 2.4 L Magnesium 1.7 01/07/18 12:06 WBC RBC Hgb Hct MCV MCH MCHC RDW Plt Count MPV Sodium Potassium Chloride Carbon Dioxide Anion Gap BUN Creatinine Estimated GFR Random Glucose Lactic Acid 4.7 H* Calcium Phosphorus Magnesium Impressions Elbow X-Ray 01/07/18 05:59 CONCLUSION: 1. Soft tissue swelling about the olecranon. 2. No fracture or dislocation seen. Forearm X-Ray 01/07/18 05:59 CONCLUSION: No evidence of recent bony injury. Hand X-Ray 01/07/18 05:59 CONCLUSION: Probable old boxer's fracture. No evidence of recent bony injury. Humerus X-Ray 01/07/18 05:59 CONCLUSION: No evidence of recent bony injury.
--- NOTE | 2018-01-07 17:25 | MB ---
cc: Peggy Belcher MD, Slobodan MD DATE: 01/07/2018 REASON FOR CONSULTATION: Cellulitis of the right arm, question of necrotizing fasciitis. HISTORY OF PRESENT ILLNESS: A 57-year-old male with history of alcohol and tobacco abuse. He is homeless and presents to the hospital in the ER because of swelling of the right lower arm and elbow. He states that it has been going on for several weeks. He states he might have had some chills and fever and had scabs on bilateral upper and lower extremities. Question arises about the nature of his symptoms. PAST MEDICAL HISTORY: The patient denies. PAST SURGICAL HISTORY: The patient had some sort of a foot, neck surgery, as well as hand surgery, history of some sort of abdominal surgery, but the patient does not know what it was. SOCIAL HISTORY: He is a heavy alcohol abuser and does not smoke. [address] PHYSICAL EXAMINATION: GENERAL: Reveals a 57-year-old male. HEENT: Normocephalic. No trauma to the head. Pupils equal, reactive. Extraocular muscles intact. NECK: Supple. Bilateral carotid pulses. No bruits. CHEST: Clear, bilateral breath sounds. HEART: Regular rhythm. ABDOMEN: Soft. No rebound, no guarding, no masses. PELVIS: Stable. EXTREMITIES: The patient has bilateral palpable femoral, popliteal, dorsalis pedis and posterior tibial pulses, bilateral brachial, radial and ulnar pulses. On the right side, the patient has significant swelling of the right forearm with cellulitis. No crepitus. No drainage and no fluctuant areas. NEUROLOGIC: He is grossly intact. IMPRESSION AND PLAN: A patient with cellulitis of the right arm and small scabbed area of the right elbow. On the x-rays I did not see any fluid collections or air in the tissues. The patient should be managed with antibiotics, because this is likely A combination of MRSA AND some other stuff. Zosyn and vancomycin would be an appropriate combination as would be maybe vancomycin with Levaquin and Flagyl. Either way, vancomycin should be in the mix, but right now there is no surgical indication of any sorts. Some of these cellulites will resolve and very few will shrink down and eventually there is a fluctuant area which can be then drained. Right now, this is diffuse phlegmon and nothing to drain. I think you much for the referral. We will follow the patient. MD JALEESA Bernstein/ , 05:10 PM , 05:17 PM
[2018-01-07] MEDS: Piperacil/Tazo 3.375 GM Premix 50 ML IV.SIG SCH (17:38)
[2018-01-07] MEDS ORDERED: Vancomycin Inj 2,000 MG in Sodium Chlor 0.9% Inj 500 ML IV.SIG SCH (20:00)
[2018-01-07] MEDS: Clindamycin 900 mg/NS Premix 900 MG/50 ML PIGGYBACK IV.SIG SCH (22:22)
[2018-01-08] MEDS: Morphine Inj 4 MG/ML Vial IV.PUSH PRN ×6 (00:23→20:25)
[2018-01-08] MEDS: Piperacil/Tazo 3.375 GM Premix 50 ML IV.SIG SCH ×4 (00:24→18:04)
[2018-01-08] MEDS: Clindamycin 900 mg/NS Premix 900 MG/50 ML PIGGYBACK IV.SIG SCH ×3 (00:25→16:30)
[2018-01-08] MEDS: Temazepam 15 MG Capsule PO PRN (01:48)
[2018-01-08] MEDS: chlordiazePOXIDE 25 MG Capsule PO SCH ×4 (05:29→22:11)
[2018-01-08 06:25] LABS: Baso # (Auto) 0.1 th/mm3 (0.0-0.2); Baso % (Auto) 0.5 % (0.0-2.0); Eos % (Auto) 0.4 % (0.0-4.0); Hematocrit 32.5 % (39.0-51.0); Hemoglobin 11.2 gm/dL (13.0-17.0); Lymph # (Auto) 0.5 th/mm3 (1.0-4.8); Lymph % (Auto) 4.7 % (9.0-44.0); Mean Corpuscular HGB Conc 34.5 % (32.0-36.0); Mean Corpuscular Hemoglobin 36.2 pg (27.0-34.0); Mean Corpuscular Volume 105.1 fL (80.0-100.0); Mean Platelet Volume 9.1 fL (7.0-11.0); Mono # (Auto) 0.8 th/mm3 (0.0-0.9); Mono % (Auto) 7.9 % (0.0-8.0); Neut # (Auto) 8.5 th/mm3 (1.8-7.7); Neut % (Auto) 86.5 % (16.0-70.0); Platelet Count 122 th/mm3 (150-450); Red Blood Count 3.09 mil/mm3 (4.50-5.90); Red Cell Distribution Width 15.6 % (11.6-17.2); White Blood Count 9.9 th/mm3 (4.0-11.0)
[2018-01-08 06:53] LABS: Alanine Aminotransferase 97 U/L (12-78); Alkaline Phosphatase 114 U/L (45-117); Phosphorus 1.9 mg/dL (2.5-4.9); Total Protein 6.8 g/dL (6.4-8.2)
[2018-01-08 06:58] LABS: Albumin 2.4 g/dL (3.4-5.0); Anion Gap 11 meq/L (5-15); Aspartate Aminotransferase 217 U/L (15-37); Blood Urea Nitrogen 5 mg/dL (7-18); Calcium 8.1 mg/dL (8.5-10.1); Carbon Dioxide 25.3 meq/L (21.0-32.0); Chloride 97 meq/L (98-107); Glomerular Filtration Rate Greater Than 89 mL/min (>89); Glucose,Random 83 mg/dL (74-106); Magnesium 1.6 mg/dL (1.5-2.5); Potassium 3.4 meq/L (3.5-5.1); Sodium 133 meq/L (136-145)
[2018-01-08 08:15] LABS: Eosinophils 1 % (0-4); Lymphocytes 4 % (9-44); Monocytes 8 % (0-8)
[2018-01-08 08:16] LABS: Dohle Bodies Present; Platelet Morphology Normal (Normal)
[2018-01-08] MEDS: Multivitamin/Minerals Therapeutic Tablet PO SCH (08:18)
[2018-01-08] MEDS: Folic Acid 1 MG Tablet PO SCH (08:18)
[2018-01-08] MEDS: Potassium Phos/Sodium Phos 250 MG Tablet PO SCH ×2 (08:19→20:28)
[2018-01-08] MEDS ORDERED: Magnesium Sulfate Inj 4 GM in Sodium Chlor 0.9% Inj 92 ML IV.SIG PRN (08:34)
[2018-01-08] MEDS ORDERED: Potassium Chlor 40 mEq Premix 40 MEQ/100 ML PIGGYBACK IV.SIG PRN ×2 (08:34)
[2018-01-08] MEDS ORDERED: Magnesium Sulfate Inj 2 GM in Sodium Chlor 0.9% Inj 96 ML IV.SIG PRN (08:34)
[2018-01-08] MEDS ORDERED: Sodium Phosphate Inj 30 MMOL in Sodium Chlor 0.9% Inj 250 ML IV.SIG PRN (08:34)
[2018-01-08] MEDS ORDERED: Potassium Chlor 20 mEq Premix 20 MEQ/100 ML PIGGYBACK IV.SIG PRN (08:34)
[2018-01-08] MEDS ORDERED: Potassium Phosphate 500 MG Soluble Tablet PO PRN (08:34)
[2018-01-08] MEDS ORDERED: Potassium Phosphate Inj 30 MMOL in Sodium Chlor 0.9% Inj 250 ML IV.SIG PRN (08:34)
[2018-01-08] MEDS ORDERED: Potassium Chloride 25 MEQ Effervescent Tablet PO PRN (08:34)
--- NOTE | 2018-01-08 08:56 | P.PN ---
Subjective Interval history: Follow-up septic shock. Patient transferred to ICU yesterday lactic acid of 4.7 received fluid resuscitation. Also evaluated by general surgery for possible necrotizing infection. Today he feels rundown having visual hallucinations. Right upper extremity pain scale of 10 out of 10. Right upper extremity swelling is worse dw general surgery. Physical Exam Vital signs: Vital Signs 01/07/18 08:53 01/07/18 10:00 01/07/18 11:07 Temperature Pulse Rate 100 H 91 H Respiratory Rate 19 18 Blood Pressure 165/78 H Pulse Oximetry 94 L 01/07/18 12:00 01/07/18 16:00 01/07/18 19:50 Temperature 97.9 F 98.1 F Pulse Rate 93 H 95 H Respiratory Rate 18 18 17 Blood Pressure 156/85 H 141/79 H Pulse Oximetry 94 L 94 L 01/07/18 20:00 01/07/18 21:02 01/07/18 21:53 Temperature 98.5 F Pulse Rate 101 H Respiratory Rate 28 H 19 20 Blood Pressure 137/80 Pulse Oximetry 89 L 01/08/18 00:00 01/08/18 00:12 01/08/18 04:00 Temperature 98.8 F 98.9 F Pulse Rate 102 H 98 H Respiratory Rate 24 20 20 Blood Pressure 127/73 148/85 H Pulse Oximetry 97 93 L 01/08/18 04:23 01/08/18 05:28 Temperature Pulse Rate Respiratory Rate 20 22 Blood Pressure Pulse Oximetry Intake & Output 01/07/18 01/08/18 01/08/18 18:59 06:59 18:59 Intake Total 1141 / 1141 750 / 750 Output Total 725 / 725 550 / 550 Balance 416 / 416 200 / 200 Weight 91 kg 96.2 kg Intake: IV 50 / 50 50 / 50 Cleocin 900 mg/NS Premix 900 mg 0 / 0 In 50 ml @ 100 mls/hr IV.SIG Q8H MIAH Rx#:[id number] Zosyn 3.375 GM Premix 50 ML @ 50 / 50 50 / 50 100 mls/hr IV.SIG Q6H MIA[facility] Rx#: [id number] Oral 1091 / 1091 700 / 700 Output: Urine 725 / 725 550 / 550 Other: # Voids 5 Weight On Admission 91 kg Narrative: GENERAL: Well-developed, well-nourished unkempt male who is critically ill SKIN: Warm and dry. CARDIOVASCULAR: Tachycardic regular rhythm RESPIRATORY: No accessory muscle use. Clear to auscultation. Breath sounds equal bilaterally. GASTROINTESTINAL: Abdomen soft, non-tender, nondistended. MUSCULOSKELETAL: Extremities without clubbing, cyanosis, or edema. No obvious deformities. Cellulitis involving the right forearm with scabs. Swelling is worse. He also has cellulitis surrounding scabs of both legs anteriorly NEUROLOGICAL: Awake and alert. No obvious cranial nerve deficits. Motor grossly within normal limits. Five out of 5 muscle strength in the arms and legs. Normal speech. Tremors noted Results - Labs CBC & Chem 7: 01/08/18 04:21 01/08/18 04:21 Laboratory Results - last 24 hr 01/07/18 01/07/18 01/07/18 06:12 12:06 14:50 WBC RBC Hgb Hct MCV MCH MCHC RDW Plt Count MPV Prelim Diff (Auto) Neut % (Auto) Lymph % (Auto) [place] % (Auto) Eos % (Auto) Baso % (Auto) Neut # (Auto) Lymph # (Auto) [place] # (Auto) Eos # (Auto) Baso # (Auto) WBC Differential Seg Neuts % (Manual) Band Neuts % (Manual) Lymphocytes % (Manual) Monocytes % (Manual) Eosinophils % (Manual) Abs Neuts (Manual) Differential Comment Dohle Bodies Platelet Estimate Platelet Morphology Sodium Potassium Chloride Carbon Dioxide Anion Gap BUN Creatinine Estimated GFR Random Glucose Lactic Acid 4.7 H* Calcium Phosphorus 2.4 L Magnesium 1.7 Total Bilirubin AST ALT Alkaline Phosphatase Total Protein Albumin Nasal Screen MRSA (PCR) Mrsa detected 01/07/18 01/08/18 01/08/18 16:40 04:21 04:21 WBC 9.9 RBC 3.09 L Hgb 11.2 L Hct 32.5 L MCV 105.1 H MCH 36.2 H MCHC 34.5 RDW 15.6 Plt Count 122 L MPV 9.1 Prelim Diff (Auto) Slide review pending Neut % (Auto) 86.5 H Lymph % (Auto) 4.7 L [place] % (Auto) 7.9 Eos % (Auto) 0.4 Baso % (Auto) 0.5 Neut # (Auto) 8.5 H Lymph # (Auto) 0.5 L [place] # (Auto) 0.8 Eos # (Auto) 0.0 Baso # (Auto) 0.1 WBC Differential Manual diff final Seg Neuts % (Manual) 73 H Band Neuts % (Manual) 14 H Lymphocytes % (Manual) 4 L Monocytes % (Manual) 8 Eosinophils % (Manual) 1 Abs Neuts (Manual) 8.6 H Differential Comment . Dohle Bodies Present H Platelet Estimate Low L Platelet Morphology Normal Sodium 133 L Potassium 3.4 L Chloride 97 L Carbon Dioxide 25.3 Anion Gap 11 BUN 5 L Creatinine 0.70 Estimated GFR Greater than 89 Random Glucose 83 Lactic Acid 2.7 H Calcium 8.1 L Phosphorus 1.9 L Magnesium 1.6 Total Bilirubin 0.9 AST 217 H ALT 97 H Alkaline Phosphatase 114 Total Protein 6.8 Albumin 2.4 L Nasal Screen MRSA (PCR) Microbiology 01/07/18 16:20 Wound - Elbow Gram Stain - Final - Imaging ITS Impressions Elbow X-Ray 01/07/18 05:59 CONCLUSION: 1. Soft tissue swelling about the olecranon. 2. No fracture or dislocation seen. Forearm X-Ray 01/07/18 05:59 CONCLUSION: No evidence of recent bony injury. Hand X-Ray 01/07/18 05:59 CONCLUSION: Probable old boxer's fracture. No evidence of recent bony injury. Humerus X-Ray 01/07/18 05:59 CONCLUSION: No evidence of recent bony injury. Assessment and Plan - Plan This is a 57-year-old male with a history of alcohol and tobacco abuse. He presents to the emergency room because of alcohol withdrawal symptoms and right upper extremity pain and swelling. Septic shock secondary to right upper extremity and bilateral lower extremity cellulitis. Right upper extremity is more swollen. Discussed with general surgery will obtain CT soft tissues and consider Doppler. Continue broad- spectrum IV antibiotics with clindamycin, vancomycin and Zosyn. Gram stain with gram-positive cocci. Follow-up cultures. Continue IV hydration. Pain management with Lortab and IV morphine counseled regarding narcotics. Alcohol withdrawal. Patient with visual hallucinations. Counseled. CIWA protocol. Scheduled Librium. Case management consult Hyponatremia, hypokalemia and hypophosphatemia secondary to alcohol. Continue NS IV hydration and replace electrolytes per protocol. Repeat BMP, magnesium and phosphorus in the morning Mild thrombocytopenia secondary to sepsis and alcohol. Repeat CBC in the morning. Fall risk patient states he cannot walk. Physical therapy evaluation DVT prophylaxis with SCD. Hold pharmacological prophylaxis may need surgical intervention Discharge Planning: Patient is critically ill will continue monitoring in the ICU. Critical care time spent 35 minutes HHC vs SNF
[2018-01-08] MEDS ORDERED: Vancomycin Consult Pharmacy 1 EACH OTHER SCH (09:00)
[2018-01-08] MEDS: Vancomycin Inj 1,750 MG in Sodium Chlor 0.9% Inj 500 ML IV.SIG SCH ×2 (10:34→22:12)
[2018-01-08] MEDS: Senna/Docusate Sodium 8.6/50 MG Tablet PO SCH ×2 (10:35→20:28)
[2018-01-08] MEDS: Mupirocin 2% Nasal Oint Topical Syringe EACH NARE SCH ×2 (10:35→20:26)
--- NOTE | 2018-01-08 11:02 | CT ---
EXAM DATE: 01/08/2018 10:53 AM EDT AGE/SEX: 57 years / Male INDICATIONS: Right forearm and elbow pain and swelling. CLINICAL DATA: This is the patient's initial encounter. Patient reports that signs and symptoms have been present for 2 days and indicates a pain score of 6/10. MEDICAL/SURGICAL HISTORY: None. . hand surgery RADIATION DOSE: 65.49 CTDI (mGy) ; Combined studies ; Patient motion COMPARISON: [facility] [place] FOREARM RIGHT W CONTRAST, 01/08/2018. C, FOREARM RIGHT 2V, 01/07/2018. . TECHNIQUE: Multiple contiguous axial images were acquired using a multirow detector CT scanner after intravenous administration of 93ML ml Omnipaque 350 (iohexol) nonionic water-soluble contrast as a cumulative dose for multiple exams.. Multiplanar reconstruction was performed in the sagittal and co jose planes. Using automated exposure control and adjustment of the mA and/or kV according to patie nt size, radiation dose was kept as low as reasonably achievable to obtain optimal diagnostic quality images. DICOM format image data is available electronically for review and comparison. FINDINGS: Bones: The osseous structures are intact with normal alignment. There is a small 7 mm loose body tosin ntified within the elbow at the level of the olecranon fossa. Joints: No significant arthropathy or bony hypertrophy is seen. Soft Tissues: Superficial soft tissue edema overlying the elbow posteriorly without evidence of fore ign body within the soft tissues and no evidence of abscess. Other: 7 mm calcified loose body identified within the elbow at the level of the olecranon fossa. Post Contrast: No abnormal areas of enhancement are seen in the marrow or soft tissues. CONCLUSION: 1. 7 mm loose body identified within the elbow at the level of the olecranon fossa. No evidence of f racture. 2. Subcutaneous edema overlying the posterior aspect of the elbow without evidence of abscess or for eign body within the soft tissues. Electronically signed by: Ana Rosales MD 01/08/2018 11:01 AM EDT
--- NOTE | 2018-01-08 11:37 | CT ---
EXAM DATE: 01/08/2018 10:53 AM EDT AGE/SEX: 57 years / Male INDICATIONS: Right forearm and elbow pain and swelling. CLINICAL DATA: This is the patient's initial encounter. Patient reports that signs and symptoms have been present for 2 days and indicates a pain score of 6/10. MEDICAL/SURGICAL HISTORY: None. . hand surgery RADIATION DOSE: 65.49 CTDI (mGy) ; Combined studies ; Patient motion COMPARISON: [facility], CT ELBOW RIGHT W CONTRAST, 01/08/2018. [facility], HAND LIMITED RIGHT 2V, 01/07/2018. . TECHNIQUE: Multiple contiguous axial images were acquired using a multi-row detector CT scanner afte r the intravenous administration of 93 ml Omnipaque 350 (iohexol) nonionic water-soluble contrast as a single exam dose. Multiplanar reconstruction was performed in the sagittal and coronal planes. Using automated exposure control and adjustment of the mA and/or kV according to patient size, radiat ion dose was kept as low as reasonably achievable to obtain optimal diagnostic quality images. DICOM format image data is available electronically for review and comparison. FINDINGS: The osseous structures demonstrate normal alignment and mineralization. No evidence of fracture. Ther e is a 7 mm loose body identified within the right elbow at the level of the olecranon fossa. Soft tissues demonstrate extensive subcutaneous edema overlying the posterior and volar aspect of the forearm and elbow. No evidence of abscess. CONCLUSION: 1. 7 mm loose body identified within the joint at the level of the olecranon fossa. No evidence of f racture or abscess. Extensive subcutaneous edema. Electronically signed by: Ana Rosales MD 01/08/2018 11:36 AM EDT
[2018-01-08] MEDS ORDERED: Dexmedetomidine Inj 200 MCG in Sodium Chlor 0.9% Inj 48 ML IV.CONT PRN ×2 (12:20→12:29)
[2018-01-08] MEDS: Potassium Phosphate 500 MG Soluble Tablet PO PRN ×2 (12:44→16:41)
[2018-01-08] MEDS: Magnesium Oxide 400 MG Tablet PO PRN (12:44)
[2018-01-08] MEDS: Haloperidol Inj 5 MG/ML Ampul IV.PUSH PRN ×2 (13:02→18:17)
--- NOTE | 2018-01-08 13:16 | P.PNVS ---
Subjective Subjective/Hospital Course: patient with cellulitis/phlegmon R forearm and elbow area/scab/ No fluctuance, crepitus or drainage. Cellulitis, not necrotizing fasciitis. Full consult dictated 01/08/2018 Patient with cellulitis of the right arm Swelling is probably somewhat decreased and the redness is still present but now slightly darker in hue No fluctuance no abscess that could be drained either on clinical exam or CT scan This is diffuse phlegmon and therefore conservative management is appropriate Patient is excellent distal pulses and full function of the hand and he does not have any signs of compartment syndrome rather simple swelling We will do ultrasound of the arm to evaluate for possible DVT. Patient should continue antibiotics and warm compresses. I have written an order warm compresses yesterday however for the last 24 hours he did not get any for a believe the order was not picked up At this point there are no indications for surgical approach of any sorts Objective Vital Signs / I&O: Vital Signs 01/07/18 16:00 01/07/18 19:50 01/07/18 19:53 Temperature 98.1 F Pulse Rate 95 H 95 H Respiratory Rate 18 17 25 H Blood Pressure 141/79 H Pulse Oximetry 94 L 01/07/18 20:00 01/07/18 21:00 01/07/18 21:02 Temperature 98.5 F Pulse Rate 101 H 106 H Respiratory Rate 28 H 27 H 19 Blood Pressure 137/80 158/92 H Pulse Oximetry 89 L 89 L 01/07/18 21:53 01/07/18 22:00 01/07/18 23:00 Temperature Pulse Rate 104 H 127 H Respiratory Rate 20 21 40 H Blood Pressure 152/77 H 138/89 Pulse Oximetry 94 L 91 L 01/08/18 00:00 01/08/18 00:12 01/08/18 00:29 Temperature 98.8 F Pulse Rate 102 H 98 H Respiratory Rate 24 20 19 Blood Pressure 145/103 H 127/73 Pulse Oximetry 97 95 01/08/18 01:00 01/08/18 02:00 01/08/18 03:00 Temperature Pulse Rate 110 H 93 H 106 H Respiratory Rate 33 H 22 27 H Blood Pressure 128/78 136/76 155/79 H Pulse Oximetry 95 95 89 L 01/08/18 04:00 01/08/18 04:23 01/08/18 05:00 Temperature 98.9 F Pulse Rate 98 H 106 H Respiratory Rate 20 20 22 Blood Pressure 148/85 H Pulse Oximetry 93 L 85 L 01/08/18 05:01 01/08/18 05:28 01/08/18 06:00 Temperature Pulse Rate 115 H 107 H Respiratory Rate 28 H 22 24 Blood Pressure 148/99 H 143/71 H Pulse Oximetry 82 L 01/08/18 07:00 01/08/18 08:00 01/08/18 09:00 Temperature 99.4 F Pulse Rate 95 H 101 H 101 H Respiratory Rate 22 20 19 Blood Pressure 132/82 150/85 H 164/88 H Pulse Oximetry 91 L 100 01/08/18 09:23 01/08/18 09:46 01/08/18 10:00 Temperature Pulse Rate 103 H 105 H 100 H Respiratory Rate 22 24 22 Blood Pressure 160/98 H 143/84 H 169/87 H Pulse Oximetry 95 01/08/18 10:40 01/08/18 11:00 01/08/18 11:13 Temperature Pulse Rate 107 H 123 H 118 H Respiratory Rate 20 12 28 H Blood Pressure 164/83 H 148/84 H Pulse Oximetry Intake & Output 01/07/18 01/08/18 01/08/18 18:59 06:59 18:59 Intake Total 1141 / 1141 750 / 750 100 / 100 Output Total 725 / 725 550 / 550 Balance 416 / 416 200 / 200 100 / 100 Weight 91 kg 96.2 kg Intake: IV 50 / 50 50 / 50 100 / 100 Cleocin 900 mg/NS Premix 900 mg 0 / 0 50 / 50 In 50 ml @ 100 mls/hr IV.SIG Q8H [facility] Rx#:[id number] Zosyn 3.375 GM Premix 50 ML @ 50 / 50 50 / 50 50 / 50 100 mls/hr IV.SIG Q6H [facility] Rx#: [id number] Oral 1091 / 1091 700 / 700 Output: Urine 725 / 725 550 / 550 Other: # Voids 5 Weight On Admission 91 kg Laboratory Results - last 24 hr 01/07/18 01/07/18 01/07/18 12:06 14:50 16:40 WBC RBC Hgb Hct MCV MCH MCHC RDW Plt Count MPV Prelim Diff (Auto) Neut % (Auto) Lymph % (Auto) [place] % (Auto) Eos % (Auto) Baso % (Auto) Neut # (Auto) Lymph # (Auto) [place] # (Auto) Eos # (Auto) Baso # (Auto) WBC Differential Seg Neuts % (Manual) Band Neuts % (Manual) Lymphocytes % (Manual) Monocytes % (Manual) Eosinophils % (Manual) Abs Neuts (Manual) Differential Comment Dohle Bodies Platelet Estimate Platelet Morphology Sodium Potassium Chloride Carbon Dioxide Anion Gap BUN Creatinine Estimated GFR Random Glucose Lactic Acid 4.7 H* 2.7 H Calcium Phosphorus Magnesium Total Bilirubin AST ALT Alkaline Phosphatase Total Protein Albumin Nasal Screen MRSA (PCR) Mrsa detected 01/08/18 01/08/18 04:21 04:21 WBC 9.9 RBC 3.09 L Hgb 11.2 L Hct 32.5 L MCV 105.1 H MCH 36.2 H MCHC 34.5 RDW 15.6 Plt Count 122 L MPV 9.1 Prelim Diff (Auto) Slide review pending Neut % (Auto) 86.5 H Lymph % (Auto) 4.7 L [place] % (Auto) 7.9 Eos % (Auto) 0.4 Baso % (Auto) 0.5 Neut # (Auto) 8.5 H Lymph # (Auto) 0.5 L [place] # (Auto) 0.8 Eos # (Auto) 0.0 Baso # (Auto) 0.1 WBC Differential Manual diff final Seg Neuts % (Manual) 73 H Band Neuts % (Manual) 14 H Lymphocytes % (Manual) 4 L Monocytes % (Manual) 8 Eosinophils % (Manual) 1 Abs Neuts (Manual) 8.6 H Differential Comment . Dohle Bodies Present H Platelet Estimate Low L Platelet Morphology Normal Sodium 133 L Potassium 3.4 L Chloride 97 L Carbon Dioxide 25.3 Anion Gap 11 BUN 5 L Creatinine 0.70 Estimated GFR Greater than 89 Random Glucose 83 Lactic Acid Calcium 8.1 L Phosphorus 1.9 L Magnesium 1.6 Total Bilirubin 0.9 AST 217 H ALT 97 H Alkaline Phosphatase 114 Total Protein 6.8 Albumin 2.4 L Nasal Screen MRSA (PCR) Microbiology 01/07/18 16:20 Gram Stain - Final Wound - Elbow Wound Culture - Preliminary Staphylococcus aureus Group A beta (Strep pyogenes) 01/07/18 16:40 Aerobic Blood Culture - Preliminary Blood - Peripheral No growth in 1 day Anaerobic Blood Culture - Preliminary No growth in 1 day 01/07/18 16:35 Aerobic Blood Culture - Preliminary Blood - Peripheral No growth in 1 day Anaerobic Blood Culture - Preliminary No growth in 1 day Impressions Elbow X-Ray 01/07/18 05:59 CONCLUSION: 1. Soft tissue swelling about the olecranon. 2. No fracture or dislocation seen. Forearm X-Ray 01/07/18 05:59 CONCLUSION: No evidence of recent bony injury. Hand X-Ray 01/07/18 05:59 CONCLUSION: Probable old boxer's fracture. No evidence of recent bony injury. Humerus X-Ray 01/07/18 05:59 CONCLUSION: No evidence of recent bony injury. Elbow CT 01/08/18 00:00 CONCLUSION: 1. 7 mm loose body identified within the elbow at the level of the olecranon fossa. No evidence of fracture. 2. Subcutaneous edema overlying the posterior aspect of the elbow without evidence of abscess or foreign body within the soft tissues. Forearm CT 01/08/18 00:00 CONCLUSION: 1. 7 mm loose body identified within the joint at the level of the olecranon fossa. No evidence of fracture or abscess. Extensive subcutaneous edema.
--- NOTE | 2018-01-08 14:16 | US ---
EXAM DATE: 01/08/2018 1:57 PM EDT AGE/SEX: 57 years / Male INDICATIONS: Right arm swelling. CLINICAL DATA: This is the patient's initial encounter. Patient reports that signs and symptoms have been present for 1 week and indicates a pain score of 3/10. MEDICAL/SURGICAL HISTORY: . Hypertension. Cardiovascular disease. . Lumbar fracture. Cervical fusions. COMPARISON: No prior exams available for comparison. FINDINGS: The vessels are compressible and augmentation response is documented. No filling defects a re seen. The flow is phasic with respiration. Other: None. CONCLUSION: 1. Negative for deep venous thrombosis right upper extremity. Electronically signed by: Marcellus Walker MD 01/08/2018 2:15 PM EDT
[2018-01-08] MEDS: Heparin - SQ 10,000 UNITS/ML Vial SQ SCH (20:26)
--- NOTE | 2018-01-08 21:58 | P.CONCC ---
History of Present Illness Primary Care Provider: No Primary Care Physician Family Provider: No Primary Care Physician History of Present Illness: 57-year-old male with a history of alcohol and tobacco abuse with alcohol withdrawal symptoms and right upper extremity pain and swelling. Patient could not walk prior to admission. He has decided to quit alcohol and tobacco as of the day prior to admission. He was also complaining of the right upper extremity pain, swelling and redness associated with subjective intermittent fever and chills. He has scabs in the right upper extremity as well as bilateral lower extremities. He was admitted to medicine service with cellulitis of alcohol withdrawal today required Precedex drip. Critical care medicine was consulted for management Precedex infusion. Review of Systems unobtainable due to mental condition PMFSH - History History Provided By: Patient - Medical / Surgical Hx Neg / Unobtainable Medical Problems Denied: Yes - Medical History Medical History: Medical History (Last Reviewed 01/07/18 @ 14:46 by Kaylee Jackson) Patient denies medical problems - Surgical History Surgical History: Surgical History (Last Reviewed 01/07/18 @ 14:46 by Kaylee Jackson) History of nasal surgery Hx of abdominal surgery Hx of foot surgery Hx of hand surgery Hx of neck surgery - Family History Family History: Family History (Last Reviewed 01/07/18 @ 14:46 by Kaylee Jackson) Other CAD (coronary artery disease) - Tobacco History Second Hand Smoke Exposure: No Smoking Status: Former smoker Tobacco Type: Cigarettes - Alcohol History How Often Do You Have a Drink Containing Alcohol: 4 or more times a week - Substance Use History Substance History: No History of Abuse - Travel History Recent Travel in the [place] Within the Last 8 Weeks: No Recent Travel Out of the Country Within the Last 8 Weeks: No - Immunization History Tetanus Immunization: Unsure Hx Influenza Vaccine This Season: No Medications and Allergies Active Medications: Active Medications Acetaminophen (Tylenol) 650 mg PO Q6HR PRN PRN Reason: PAIN SCALE 1 TO 2 Last Admin: 01/08/18 16:28 Dose: 650 mg Hydrocodone Bitart/Acetaminophen ([place] 10/325) 1 tab PO Q4H PRN PRN Reason: PAIN SCALE 6 TO 10 Last Admin: 01/08/18 20:26 Dose: 1 tab Hydrocodone Bitart/Acetaminophen ([place] 5/325) 1 tab PO Q4H PRN PRN Reason: PAIN SCALE 3 TO 5 Al Hydroxide/Mg Hydroxide (Milk Of Magndea Liq) 30 ml PO Q12H PRN PRN Reason: Mild Constipation Bisacodyl (Dulcolax Supp) 10 mg RECTAL DAILY PRN PRN Reason: SEVERE CONSITIPATION Chlordiazepoxide (Librium) 50 mg PO Q6H [facility] Last Admin: 01/08/18 16:28 Dose: 50 mg Clonidine HCl (Catapres) 0.1 mg PO Q6H PRN PRN Reason: For SBP >/= 180, DBP >/= 100 Last Admin: 01/08/18 16:41 Dose: 0.1 mg Flumazenil (Romazecon Inj) 0.2 mg IV.PUSH Q1M PRN PRN Reason: OVERSEDATION Folic Acid (Folic Acid) 1 mg PO DAILY [facility] Stop: 01/12/18 08:59 Last Admin: 01/08/18 08:18 Dose: 1 mg Haloperidol Lactate (Haldol Inj) 2.5 mg IV.PUSH Q15M PRN PRN Reason: for severe agitation Last Admin: 01/08/18 18:17 Dose: 2.5 mg Heparin Sodium (Porcine) (Heparin Inj) 5,000 units SQ Q12HR [facility] Last Admin: 01/08/18 20:26 Dose: 5,000 units Potassium Chloride/Sodium Chloride (Ns + Kcl 20 Meq Inj) 1,000 mls @ 100 mls/ hr IV.CONT .Q10H [facility] Last Admin: 01/08/18 19:04 Dose: 100 mls/hr Clindamycin/Sodium Chloride (Cleocin 900 Mg/Ns Premix) 900 mg in 50 mls @ 100 mls/hr IV.SIG Q8H [facility] Last Infusion: 01/08/18 19:05 Dose: Infused Piperacillin/Tazobactam/Dextrose (Zosyn 3.375 Gm Premix) 50 mls @ 100 mls/hr IV.SIG Q6H [facility] Last Infusion: 01/08/18 19:04 Dose: Infused Magnesium Sulfate Inj 4 gm/ (Sodium Chloride) 100 mls @ 50 mls/hr IV.SIG UNSCH PRN PRN Reason: For Magnesium 0.9 - 1.1 mg/dL Magnesium Sulfate Inj 2 gm/ (Sodium Chloride) 100 mls @ 50 mls/hr IV.SIG UNSCH PRN PRN Reason: For Magnesium 1.2 - 1.6 mg/dL Potassium Chloride (Kcl 40 Meq Premix Inj) 40 meq in 100 mls @ 25 mls/hr IV.SIG Q2H PRN PRN Reason: For Potassium 2.8 - 3.2 mEq/L Potassium Chloride (Kcl 20 Meq Premix Inj) 20 meq in 100 mls @ 50 mls/hr IV.SIG Q2H PRN PRN Reason: For Potassium 3.3 - 3.5 mEq/L Potassium Chloride (Kcl 20 Meq Premix Inj) 20 meq in 100 mls @ 50 mls/hr IV.SIG Q2H PRN PRN Reason: For Potassium 2.8 - 3.2 mEq/L Potassium Phosphate 30 mmol/ (Sodium Chloride) 260 mls @ 42 mls/hr IV.SIG UNSCH PRN PRN Reason: SEE LABEL COMMENTS Sodium Phosphate 30 mmol/ (Sodium Chloride) 260 mls @ 42 mls/hr IV.SIG UNSCH PRN PRN Reason: For Phosphorus < 2.5 mg/dL Potassium Chloride (Kcl 40 Meq Premix Inj) 40 meq in 100 mls @ 25 mls/hr IV.SIG UNSCH PRN PRN Reason: For Potassium 3.3 - 3.5 mEq/L Pharmacy Profile Note (Vancomycin Consult Pharmacy) 0 mls @ 0 mls/hr OTHER UNSCH [facility] Vancomycin HCl 1,750 mg/ (Sodium Chloride) 517.5 mls @ 250 mls/hr IV.SIG Q12H [facility] Last Infusion: 01/08/18 19:04 Dose: Infused Dexmedetomidine HCl 1,000 mcg/ (Sodium Chloride) 250 mls @ 4.81 mls/hr IV.CONT TITRATE PRN; Protocol PRN Reason: Per Protocol Lactulose (Lactulose Liq) 30 ml PO DAILY PRN PRN Reason: SEVERE CONSITIPATION Lorazepam (Ativan) 2 mg PO Q2H PRN PRN Reason: for CIWA 11-14 Lorazepam (Ativan Inj) 2 mg IV.PUSH Q2H PRN PRN Reason: for CIWA 11-14 Last Admin: 01/08/18 08:20 Dose: 2 mg Lorazepam (Ativan Inj) 2 mg IV.PUSH Q1H PRN PRN Reason: for CIWA 15-20 Last Admin: 01/08/18 20:25 Dose: 2 mg Lorazepam (Ativan Inj) 2 mg IV.PUSH Q15M PRN PRN Reason: for CIWA > 20 Last Admin: 01/08/18 18:48 Dose: 2 mg Lorazepam (Ativan Inj) 1 mg IV.PUSH Q4H PRN PRN Reason: for CIWA 8-10 Lorazepam (Ativan) 1 mg PO Q4H PRN PRN Reason: for CIWA 8-10 Last Admin: 01/07/18 08:38 Dose: 1 mg Magnesium Oxide (Mag-Ox) 800 mg PO UNSCH PRN PRN Reason: For Magnesium 1.2 - 1.6 mg/dL Last Admin: 01/08/18 12:44 Dose: 800 mg Miscellaneous Information ([facility] Ordered Lab Info) 0 each OTHER ONCE ONE Stop: 01/09/18 22:46 Morphine Sulfate (Morphine Inj) 2 mg IV.PUSH Q3H PRN PRN Reason: BREAKTHROUGH PAIN Last Admin: 01/08/18 20:25 Dose: 2 mg Multivitamins/Minerals (Theragran-M) 1 tab PO DAILY [facility] Stop: 01/12/18 08:59 Last Admin: 01/08/18 08:18 Dose: 1 tab Mupirocin (Bactroban 2% Nasal Oint) 1 applicatio EACH NARE BID [facility] Stop: 01/15/18 23:59 Last Admin: 01/08/18 20:26 Dose: 1 applicatio Naloxone HCl (Narcan Inj) 0.4 mg IV.PUSH UNSCH PRN PRN Reason: SEE LABEL COMMENTS Ondansetron HCl (Zofran Inj) 4 mg IV.PUSH Q6H PRN PRN Reason: NAUSEA OR VOMITING Last Admin: 01/07/18 10:05 Dose: 4 mg Potassium Bicarb/Potassium Chloride (K-Lyte Cl Eff) 50 meq PO UNSCH PRN PRN Reason: For Potassium 3.3 - 3.5 mEq/L Last Admin: 01/08/18 12:44 Dose: 50 meq Potassium Phos/Sodium Phos (K-Phos Neutral) 250 mg PO BID [facility] Last Admin: 01/08/18 20:28 Dose: 250 mg Potassium Phosphate (K-Phos Original) 2,000 mg PO Q4H PRN PRN Reason: Phosphorus Less Than 2.5 mg/dL Last Admin: 01/08/18 16:41 Dose: 2,000 mg Potassium Phosphate (K-Phos Original) 2,000 mg PO UNSCH PRN PRN Reason: SEE LABEL COMMENTS Senna/Docusate Sodium (Tisha-Colace) 1 tab PO BID [facility] Last Admin: 01/08/18 20:28 Dose: Not Given Sennosides (Senokot) 17.2 mg PO Q12H PRN PRN Reason: Moderate Constipation Temazepam (Restoril) 15 mg PO HS PRN PRN Reason: SLEEP Last Admin: 01/08/18 01:48 Dose: 15 mg Thiamine HCl (Vitamin B1) 100 mg PO DAILY [facility] Last Admin: 01/08/18 08:18 Dose: 100 mg Allergies Allergy/AdvReac Type Severity Reaction Status Date / Time No Known Allergies Allergy Verified 01/07/18 05:56 Home Medications Medication Instructions Recorded Confirmed Type No Known Home Medications 01/07/18 01/07/18 History Physical Exam Vital signs: Vital Signs 01/07/18 22:00 01/07/18 23:00 01/08/18 00:00 Temperature 98.8 F Pulse Rate 104 H 127 H 102 H Respiratory Rate 21 40 H 24 Blood Pressure 152/77 H 138/89 145/103 H Pulse Oximetry 94 L 91 L 97 01/08/18 00:12 01/08/18 00:29 01/08/18 01:00 Temperature Pulse Rate 98 H 110 H Respiratory Rate 20 19 33 H Blood Pressure 127/73 128/78 Pulse Oximetry 95 95 01/08/18 02:00 01/08/18 03:00 01/08/18 04:00 Temperature 98.9 F Pulse Rate 93 H 106 H 98 H Respiratory Rate 22 27 H 20 Blood Pressure 136/76 155/79 H 148/85 H Pulse Oximetry 95 89 L 93 L 01/08/18 04:23 01/08/18 05:00 01/08/18 05:01 Temperature Pulse Rate 106 H 115 H Respiratory Rate 20 22 28 H Blood Pressure 148/99 H Pulse Oximetry 85 L 82 L 01/08/18 05:28 01/08/18 06:00 01/08/18 07:00 Temperature Pulse Rate 107 H 95 H Respiratory Rate 22 24 22 Blood Pressure 143/71 H 132/82 Pulse Oximetry 01/08/18 08:00 01/08/18 09:00 01/08/18 09:23 Temperature 99.4 F Pulse Rate 101 H 101 H 103 H Respiratory Rate 20 19 22 Blood Pressure 150/85 H 164/88 H 160/98 H Pulse Oximetry 91 L 100 95 01/08/18 09:46 01/08/18 10:00 01/08/18 10:40 Temperature Pulse Rate 105 H 100 H 107 H Respiratory Rate 24 22 20 Blood Pressure 143/84 H 169/87 H 164/83 H Pulse Oximetry 01/08/18 11:00 01/08/18 11:13 01/08/18 12:00 Temperature 99.0 F Pulse Rate 123 H 118 H 125 H Respiratory Rate 12 28 H 23 Blood Pressure 148/84 H 151/103 H Pulse Oximetry 01/08/18 13:00 01/08/18 14:00 01/08/18 14:01 Temperature Pulse Rate 127 H 121 H 121 H Respiratory Rate 24 18 18 Blood Pressure 207/106 H 185/86 H Pulse Oximetry 01/08/18 15:00 01/08/18 16:00 01/08/18 17:00 Temperature 102.7 F H Pulse Rate 125 H 129 H 123 H Respiratory Rate 17 23 26 H Blood Pressure 183/84 H 171/81 H 111/70 Pulse Oximetry 100 01/08/18 18:00 01/08/18 18:01 01/08/18 20:00 Temperature 102.6 F H 98.1 F Pulse Rate 125 H 138 H Respiratory Rate 29 H 35 H Blood Pressure 134/71 160/103 H Pulse Oximetry 91 L 93 L 100 01/08/18 20:19 01/08/18 20:20 01/08/18 20:26 Temperature Pulse Rate Respiratory Rate 18 19 19 Blood Pressure Pulse Oximetry Intake & Output 01/08/18 01/08/18 01/09/18 06:59 18:59 06:59 Intake Total 1750 / 1750 870 / 870 617.5 / 617.5 Output Total 550 / 550 1950 / 1950 Balance 1200 / 1200 -1080 / -1080 617.5 / 617.5 Weight 96.2 kg Intake: IV 1050 / 1050 150 / 150 617.5 / 617.5 NS + KCl 20 mEq Inj 1,000 ML @ 1000 / 1000 100 mls/hr IV.CONT .Q10H [facility] Rx #:[id number] Cleocin 900 mg/NS Premix 900 mg 0 / 0 50 / 50 50 / 50 In 50 ml @ 100 mls/hr IV.SIG Q8H [facility] Rx#:[id number] Zosyn 3.375 GM Premix 50 ML @ 50 / 50 100 / 100 50 / 50 100 mls/hr IV.SIG Q6H [facility] Rx#: [id number] Vancomycin Inj 1,750 MG In NS 517.5 / 517.5 Inj 500 ML @ 250 mls/hr IV.SIG Q12H [facility] Rx#:[id number] Oral 700 / 700 720 / 720 Output: Urine 550 / 550 1950 / 1950 Other: # Voids 5 # Bowel Movements 0 - Constitutional moderate distress - Routine HEENT Exam Head: Present: atraumatic Eye: Present: PERRL ENT: Present: mucous membranes moist - Routine Neck Exam Present: supple, full ROM. Absent: JVD, carotid bruit - Routine Respiratory Exam Absent: accessory muscle use, rhonchi, stridor, wheezes - Routine Cardiovascular Exam Present: RRR, S1, S2, tachycardia - Routine Abdominal Exam Present: soft, normoactive bowel sounds - Routine Extremities Exam Present: edema, full ROM. Absent: cyanosis, clubbing, calf tenderness - Routine Skin Exam Present: erythema, warm, lesions - Routine Neurological Exam Present: alert, moving all extremities - Detailed Neurological Exam: Coma Scale Eye Opening: Spontaneous Verbal Response: Confused Motor Response: Obey commands Rosa Maria Coma Scale Total: 14 Assessment and Plan - Assessment and Plan Plan: Alcohol withdrawal -Scheduled Librium -CIWA protocol -Precedex drip for agitation -Seizure precaution -Thiamine folate and multivitamins Right upper extremity and bilateral lower extremity cellulitis -Continue broad-spectrum IV antibiotics with clindamycin, vancomycin and Zosyn -Follow-up cultures -IV hydration Hyponatremia -secondary to alcohol -Continue NS IV hydration -electrolytes replacement per protocol DVT prophylaxis -Teds SCDs -Subcu heparin -IV Pepcid Critical Care: The total critical care time was 35 minutes. Time to perform other separately billable procedures was not included in the critical care time.
[2018-01-08] MEDS: Dexmedetomidine Inj 1,000 MCG in Sodium Chlor 0.9% Inj 240 ML IV.CONT PRN (22:12)
[2018-01-09] MEDS: Piperacil/Tazo 3.375 GM Premix 50 ML IV.SIG SCH ×5 (02:10→23:43)
[2018-01-09] MEDS: Clindamycin 900 mg/NS Premix 900 MG/50 ML PIGGYBACK IV.SIG SCH ×3 (02:40→16:05)
[2018-01-09 04:40] LABS: Albumin 2.1 g/dL (3.4-5.0); Anion Gap 10 meq/L (5-15); Aspartate Aminotransferase 353 U/L (15-37); Blood Urea Nitrogen 9 mg/dL (7-18); Calcium 7.7 mg/dL (8.5-10.1); Carbon Dioxide 25.8 meq/L (21.0-32.0); Chloride 101 meq/L (98-107); Glomerular Filtration Rate Greater Than 89 mL/min (>89); Glucose,Random 96 mg/dL (74-106); Magnesium 1.8 mg/dL (1.5-2.5); Potassium 3.6 meq/L (3.5-5.1); Sodium 137 meq/L (136-145)
[2018-01-09 04:54] LABS: Alanine Aminotransferase 167 U/L (12-78); Alkaline Phosphatase 112 U/L (45-117); Phosphorus 3.9 mg/dL (2.5-4.9); Total Protein 6.1 g/dL (6.4-8.2)
[2018-01-09] MEDS: chlordiazePOXIDE 25 MG Capsule PO SCH ×3 (05:55→22:51)
[2018-01-09] MEDS: Dexmedetomidine Inj 1,000 MCG in Sodium Chlor 0.9% Inj 240 ML IV.CONT PRN (06:09)
[2018-01-09] MEDS ORDERED: Pharmacy Ordered Lab Info OTHER ONE ×2 (07:45→22:45)
[2018-01-09 08:07] LABS: ABG Base Excess -5.2 mmol/L (-2-2); ABG PCO2 33 mmHg (38-42); ABG PO2 76 mmHG (61-120)
[2018-01-09] MEDS: Multivitamin/Minerals Therapeutic Tablet PO SCH (08:11)
[2018-01-09] MEDS: Mupirocin 2% Nasal Oint Topical Syringe EACH NARE SCH ×2 (08:11→21:23)
[2018-01-09] MEDS: Senna/Docusate Sodium 8.6/50 MG Tablet PO SCH ×2 (08:12→21:23)
[2018-01-09] MEDS: Folic Acid 1 MG Tablet PO SCH (08:12)
[2018-01-09] MEDS: Heparin - SQ 10,000 UNITS/ML Vial SQ SCH ×2 (08:12→21:23)
[2018-01-09] MEDS ORDERED: Dextrose 50% in Water 50 ML Vial IV.PUSH PRN (09:58)
--- NOTE | 2018-01-09 10:03 | P.PNCC ---
Subjective Subjective Remarks/Hospital Course: 57-year-old male with a history of alcohol and tobacco abuse with alcohol withdrawal symptoms and right upper extremity pain and swelling. Patient could not walk prior to admission. He has decided to quit alcohol and tobacco as of the day prior to admission. He was also complaining of the right upper extremity pain, swelling and redness associated with subjective intermittent fever and chills. He has scabs in the right upper extremity as well as bilateral lower extremities. He was admitted to medicine service with cellulitis of alcohol withdrawal today required Precedex drip. Critical care medicine was consulted for management Precedex infusion. 01/09 Patient is on Precedex drip for agitation. Tmax 102.7 Objective Vital Signs / I&O: Vital Signs 01/08/18 09:46 01/08/18 10:00 01/08/18 10:40 Temperature Pulse Rate 105 H 100 H 107 H Respiratory Rate 24 22 20 Blood Pressure 143/84 H 169/87 H 164/83 H Pulse Oximetry 01/08/18 11:00 01/08/18 11:13 01/08/18 12:00 Temperature 99.0 F Pulse Rate 123 H 118 H 125 H Respiratory Rate 12 28 H 23 Blood Pressure 148/84 H 151/103 H Pulse Oximetry 01/08/18 13:00 01/08/18 14:00 01/08/18 14:01 Temperature Pulse Rate 127 H 121 H 121 H Respiratory Rate 24 18 18 Blood Pressure 207/106 H 185/86 H Pulse Oximetry 01/08/18 15:00 01/08/18 16:00 01/08/18 17:00 Temperature 102.7 F H Pulse Rate 125 H 129 H 123 H Respiratory Rate 17 23 26 H Blood Pressure 183/84 H 171/81 H 111/70 Pulse Oximetry 100 01/08/18 18:00 01/08/18 18:01 01/08/18 20:00 Temperature 102.6 F H 98.1 F Pulse Rate 125 H 138 H Respiratory Rate 29 H 35 H Blood Pressure 134/71 160/103 H Pulse Oximetry 91 L 93 L 100 01/08/18 20:19 01/08/18 20:20 01/08/18 20:26 Temperature Pulse Rate Respiratory Rate 18 19 19 Blood Pressure Pulse Oximetry 01/08/18 22:11 01/08/18 22:12 08/05/18 22:48 Temperature Pulse Rate Respiratory Rate 20 19 Blood Pressure Pulse Oximetry 92 L 01/09/18 00:00 01/09/18 04:00 01/09/18 08:00 Temperature 98.4 F 98.0 F Pulse Rate 58 L 58 L Respiratory Rate 35 H 24 Blood Pressure 100/64 137/92 H Pulse Oximetry 99 97 97 Intake & Output 01/08/18 01/09/18 01/09/18 18:59 06:59 18:59 Intake Total 870 / 870 1785.0 / 1785.0 Output Total 1949 / 1949 Balance -1080 / -1080 1785.0 / 1785.0 Weight 96.5 kg Intake: IV 150 / 150 1485.0 / 1485.0 Precedex Inj 1,000 MCG In NS 250 / 250 Inj 240 ML @ 0.2 MCG/KG/HR 4.81 mls/hr IV.CONT TITRATE PRN Rx# :[id number] Cleocin 900 mg/NS Premix 900 mg 50 / 50 100 / 100 In 50 ml @ 100 mls/hr IV.SIG Q8H MIAH Rx#:[id number] Zosyn 3.375 GM Premix 50 ML @ 100 / 100 100 / 100 100 mls/hr IV.SIG Q6H MIAH Rx#: [id number] Vancomycin Inj 1,750 MG In NS 1035.0 / 1035.0 Inj 500 ML @ 250 mls/hr IV.SIG Q12H MIAH Rx#:[id number] Oral 720 / 720 300 / 300 Output: Urine 1949 Other: # Voids 2 # Bowel Movements 0 0 Result Diagrams: 01/08/18 04:21 01/09/18 03:20 Other Results: Laboratory Results - last 12 hr 01/09/18 01/09/18 01/09/18 03:20 07:02 08:00 Puncture Site Right radial Patient Temperature 98.6 O2 Saturation 92 ABG pH 7.38 ABG pCO2 33 L ABG pO2 76 ABG HCO3 19 L ABG O2 Content 15.2 ABG Base Excess -5.2 L ABG Methemoglobin 1.5 Hemal Test + Hemoglobin 11.7 L Carboxyhemoglobin 0.9 O2 Delivery Device simple mask Liter Flow 7.00 Inspired O2 21 Critical Value No Sodium 137 Potassium 3.6 Chloride 101 Carbon Dioxide 25.8 Anion Gap 10 BUN 9 Creatinine 0.76 Estimated GFR Greater than 89 POC Glucose 130 H Random Glucose 96 Calcium 7.7 L Phosphorus 3.9 D Magnesium 1.8 Total Bilirubin 1.2 H AST 353 H ALT 167 H Alkaline Phosphatase 112 Total Protein 6.1 L D Albumin 2.1 L Imaging: Elbow X-Ray 01/07/18 05:59 CONCLUSION: 1. Soft tissue swelling about the olecranon. 2. No fracture or dislocation seen. Forearm X-Ray 01/07/18 05:59 CONCLUSION: No evidence of recent bony injury. Hand X-Ray 01/07/18 05:59 CONCLUSION: Probable old boxer's fracture. No evidence of recent bony injury. Humerus X-Ray 01/07/18 05:59 CONCLUSION: No evidence of recent bony injury. Elbow CT 01/08/18 00:00 CONCLUSION: 1. 7 mm loose body identified within the elbow at the level of the olecranon fossa. No evidence of fracture. 2. Subcutaneous edema overlying the posterior aspect of the elbow without evidence of abscess or foreign body within the soft tissues. Forearm CT 01/08/18 00:00 CONCLUSION: 1. 7 mm loose body identified within the joint at the level of the olecranon fossa. No evidence of fracture or abscess. Extensive subcutaneous edema. Venous Doppler Study 01/08/18 00:00 CONCLUSION: 1. Negative for deep venous thrombosis right upper extremity. Objective Remarks: GENERAL: Patient is lying in bed in NAD SKIN: Warm and dry. HEAD: Normocephalic. EYES: No scleral icterus. No injection or drainage. NECK: Supple, trachea midline. No JVD or lymphadenopathy. CARDIOVASCULAR: Regular rate and rhythm without murmurs, gallops, or rubs. RESPIRATORY: Breath sounds equal bilaterally.Coarse BS GASTROINTESTINAL: Abdomen soft, non-tender, nondistended. MUSCULOSKELETAL: No cyanosis, or edema. Neuro: On Precedex drip, wake up to voice and follows commands. Assessment and Plan - Assessment and Plan Plan: 1) Resp Insuff 2)Alcohol withdrawal 3)Right upper extremity and bilateral lower extremity cellulitis 4)Elevated LFT;s 5)Anemia, mild thrombocytopenia Plan Neuro: On Precedex drip for agitation. Monitor neuro status Decrease Librium 50mg Q12 CIWA protocol Seizure precaution. Monitor for signs of ETOH withdrawal Thiamine folate and multivitamins Pulm: Continue with oxygen keep sats >92% Bronchodilators, check CXR/ABG CV: Monitor HR and BP keep MAP>65mmHg : Monitor renal function, I/O's, electrolytes replacement per protocol Change IVF D5NS@75ml/hr GI: On PO diet, monitor LFT's, check US Liver and Hepatitis profile. Place on Protonix 40mg daily ID: Continue with abx( Vanco, Zosyn) Monitor for signs of infections ( Fever, WBC) Wound cx: Strep Pyogenes, Staph Aureus CT forearm: 7 mm loose body identified within the elbow at the level of the olecranon fossa. No evidence of fracture. Subcutaneous edema overlying the posterior aspect of the elbow without evidence of abscess or foreign body within the soft tissues. Vascular surgery is following, Dr. Christina Wound care consult. Doppler US RUE negative for DVT Check CXR, sputum cx Heme: Monitor CBC Endo: SSI if needed for glycemic control DVT prophylaxis -Teds SCDs -Subcu heparin Level 3
[2018-01-09] MEDS: Vancomycin Inj 1,750 MG in Sodium Chlor 0.9% Inj 500 ML IV.SIG SCH (10:38)
[2018-01-09] MEDS: Potassium Phos/Sodium Phos 250 MG Tablet PO SCH ×2 (10:42→21:23)
[2018-01-09] MEDS ORDERED: Pantoprazole Inj 40 MG Vial IV.PUSH SCH (11:00)
--- NOTE | 2018-01-09 11:06 | XR ---
EXAM DATE: 01/09/2018 10:46 AM EDT AGE/SEX: 57 years / Male INDICATIONS: Dyspnea. CLINICAL DATA: This is the patient's initial encounter. Patient reports that signs and symptoms have been present for 1 day and indicates a pain score of 0/10. MEDICAL/SURGICAL HISTORY: . Hypertension. Cardiovascular disease. Lumbar fracture. . Cervical fusions. COMPARISON: [facility] – [place], CHEST PA & LAT, 10/30/2017. . FINDINGS: Bilateral mostly basilar lung consolidation which is a new finding since October 30. No significant effus ion. No pneumothorax. Heart size within normal limits. Previous fusion lower cervical spine. CONCLUSION: Bilateral mostly basilar partial lung consolidation. Differential diagnosis includes pneumonia and as piration. Electronically signed by: Marcellus Walker MD 01/09/2018 11:04 AM EDT
[2018-01-09] MEDS: Insulin NovoLIN Regular Correctional Sugar Inj SQ SCH ×2 (11:42→23:54)
[2018-01-09 14:58] LABS: Baso % (Auto) 0.3 % (0.0-2.0); Eos % (Auto) 0.3 % (0.0-4.0); Hematocrit 32.3 % (39.0-51.0); Lymph # (Auto) 0.6 th/mm3 (1.0-4.8); Lymph % (Auto) 4.4 % (9.0-44.0); Mean Corpuscular Hemoglobin 35.6 pg (27.0-34.0); Mean Corpuscular Volume 104.8 fL (80.0-100.0); Mean Platelet Volume 8.7 fL (7.0-11.0); Mono # (Auto) 1.3 th/mm3 (0.0-0.9); Mono % (Auto) 10.1 % (0.0-8.0); Neut # (Auto) 10.6 th/mm3 (1.8-7.7); Neut % (Auto) 84.9 % (16.0-70.0); Platelet Count 172 th/mm3 (150-450); Red Blood Count 3.08 mil/mm3 (4.50-5.90); Red Cell Distribution Width 15.8 % (11.6-17.2); White Blood Count 12.6 th/mm3 (4.0-11.0)
[2018-01-09 15:33] LABS: Hepatitits B Surface Antigen Nonreactive (Nonreactive)
[2018-01-09] MEDS: Haloperidol Inj 5 MG/ML Ampul IV.PUSH PRN (16:05)
[2018-01-09 16:13] LABS: Hepatitis A IgM Antibody Nonreactive (Nonreactive)
--- NOTE | 2018-01-09 17:23 | US ---
EXAM DATE: 01/09/2018 5:01 PM EDT AGE/SEX: 57 years / Male INDICATIONS: Elevated labs. CLINICAL DATA: This is the patient's initial encounter. Patient reports that signs and symptoms have been present for 1 day and indicates a pain score of 0/10. MEDICAL/SURGICAL HISTORY: . Alcoholism. Elevated LFTs. . Nasal surgery. Foot surgery. Hand ryder brendan. Neck surgery. COMPARISON: No prior exams available for comparison. MEASUREMENTS: Liver:__ 21.9 cm. Common Bile Duct:__ 9mm. Right Kidney:__ 14.1 x 5.9 x 5.9 cm. FINDINGS: Liver: Increased echotexture without focal lesion or ductal dilation. Portal Vein: Hepatopedal flow seen in portal vein. Common Duct: No intraluminal mass or stone visualized. Gallbladder: Gallbladder wall thickening without gallstones. Pancreas: Not well visualized. Right Kidney: 1.3 cm cyst lower pole. Approximately 10 mm calculus midpole. Other: None. CONCLUSION: 1. Fatty liver enlarged to 22 cm. 2. Gallbladder wall is mildly thickened but without gallstones or biliary ductal dilatation. 3. Nonobstructing right renal calculus. Electronically signed by: Marcellus Walker MD 01/09/2018 5:22 PM EDT
--- NOTE | 2018-01-09 20:23 | P.PNWCN ---
Wound Care Nurse Consult Description: Consult for bilateral leg wounds. Communicated with: RN Recommendation: Leave right anterior lower leg scab open to air. Follow Dr Christina orders for arm. Daily to left anterior lower extremity: 1. Cleanse left lower anterior lower leg with NS and gauze. 2. Pat dry. 3. Apply single layer Xeroform and cover with 4x4 gauze. 4. Secure with rolled gauze. Additional information: Patient seen on IMC for left lower extremity wound measuring 3cm x 1.2cm x < 0.1cm noted with scant sanguinous drainage, yellow wound base, open wound margins, blanching erythema to periwound that has been previously circled.
[2018-01-09] MEDS: Morphine Inj 4 MG/ML Vial IV.PUSH PRN (21:25)
[2018-01-10] MEDS: Clindamycin 900 mg/NS Premix 900 MG/50 ML PIGGYBACK IV.SIG SCH ×2 (01:23→08:22)
[2018-01-10] MEDS: Morphine Inj 4 MG/ML Vial IV.PUSH PRN ×2 (01:25→06:42)
[2018-01-10] MEDS: Vancomycin Inj 1,750 MG in Sodium Chlor 0.9% Inj 500 ML IV.SIG SCH ×2 (01:34→11:59)
[2018-01-10 01:40] LABS: Baso # (Auto) 0.1 th/mm3 (0.0-0.2); Baso % (Auto) 0.5 % (0.0-2.0); Eos # (Auto) 0.1 th/mm3 (0.0-0.4); Eos % (Auto) 0.4 % (0.0-4.0); Hematocrit 31.7 % (39.0-51.0); Hemoglobin 10.7 gm/dL (13.0-17.0); Lymph # (Auto) 1.4 th/mm3 (1.0-4.8); Lymph % (Auto) 8.8 % (9.0-44.0); Mean Corpuscular HGB Conc 33.7 % (32.0-36.0); Mean Corpuscular Hemoglobin 34.7 pg (27.0-34.0); Mean Platelet Volume 8.5 fL (7.0-11.0); Mono # (Auto) 1.6 th/mm3 (0.0-0.9); Mono % (Auto) 10.3 % (0.0-8.0); Neut # (Auto) 12.4 th/mm3 (1.8-7.7); Platelet Count 205 th/mm3 (150-450); Red Blood Count 3.08 mil/mm3 (4.50-5.90); Red Cell Distribution Width 15.6 % (11.6-17.2); White Blood Count 15.5 th/mm3 (4.0-11.0)
[2018-01-10 02:02] LABS: Albumin 2.1 g/dL (3.4-5.0); Anion Gap 12 meq/L (5-15); Aspartate Aminotransferase 206 U/L (15-37); Blood Urea Nitrogen 13 mg/dL (7-18); Calcium 7.9 mg/dL (8.5-10.1); Carbon Dioxide 24.6 meq/L (21.0-32.0); Chloride 97 meq/L (98-107); Glomerular Filtration Rate 56 mL/min (>89); Glucose,Random 110 mg/dL (74-106); Magnesium 1.5 mg/dL (1.5-2.5); Potassium 3.2 meq/L (3.5-5.1); Sodium 134 meq/L (136-145)
[2018-01-10 02:06] LABS: Alanine Aminotransferase 147 U/L (12-78); Alkaline Phosphatase 122 U/L (45-117); Phosphorus 3.4 mg/dL (2.5-4.9); Total Protein 6.4 g/dL (6.4-8.2); Vancomycin,Trough 14.4 mcg/mL (5.0-10.0)
[2018-01-10 02:28] LABS: Eosinophils 1 % (0-4); Lymphocytes 13 % (9-44); Metamyelocytes 2 % (0-1); Monocytes 2 % (0-8); Promyelocyte 1 % (0-0)
[2018-01-10 02:31] LABS: Dohle Bodies Present; Platelet Estimate Normal (Normal); Platelet Morphology Normal (Normal); RBC Morphology Normal (Normal); Toxic Granulation 1+
[2018-01-10] MEDS: Magnesium Oxide 400 MG Tablet PO PRN (03:00)
[2018-01-10] MEDS: Potassium Chlor 20 mEq Premix 20 MEQ/100 ML PIGGYBACK IV.SIG PRN ×4 (03:20→13:14)
[2018-01-10] MEDS: Piperacil/Tazo 3.375 GM Premix 50 ML IV.SIG SCH (05:32)
[2018-01-10] MEDS: Insulin NovoLIN Regular Correctional Sugar Inj SQ SCH ×3 (05:33→18:38)
[2018-01-10] MEDS: Multivitamin/Minerals Therapeutic Tablet PO SCH (08:21)
[2018-01-10] MEDS: Folic Acid 1 MG Tablet PO SCH (08:21)
[2018-01-10] MEDS: Mupirocin 2% Nasal Oint Topical Syringe EACH NARE SCH ×2 (08:21→21:50)
[2018-01-10] MEDS: Senna/Docusate Sodium 8.6/50 MG Tablet PO SCH ×2 (08:21→21:50)
[2018-01-10] MEDS: Heparin - SQ 10,000 UNITS/ML Vial SQ SCH ×2 (08:22→21:49)
--- NOTE | 2018-01-10 09:38 | P.PNCC ---
Subjective Subjective Remarks/Hospital Course: 57-year-old male with a history of alcohol and tobacco abuse with alcohol withdrawal symptoms and right upper extremity pain and swelling. Patient could not walk prior to admission. He has decided to quit alcohol and tobacco as of the day prior to admission. He was also complaining of the right upper extremity pain, swelling and redness associated with subjective intermittent fever and chills. He has scabs in the right upper extremity as well as bilateral lower extremities. He was admitted to medicine service with cellulitis of alcohol withdrawal today required Precedex drip. Critical care medicine was consulted for management Precedex infusion. 01/09 Patient is on Precedex drip for agitation. Tmax 102.7 Subjective 01/10: Currently afebrile. Off dexmedetomidine drip. Remains tachycardic. Pain appears to be controlled. Objective Vital Signs / I&O: Vital Signs 01/09/18 09:41 01/09/18 09:43 01/09/18 10:00 Temperature Pulse Rate 78 78 64 Respiratory Rate 31 H 31 H 32 H Blood Pressure 167/115 H 145/80 H 129/85 Pulse Oximetry 89 L 93 L 93 L 01/09/18 10:21 01/09/18 10:40 01/09/18 11:00 Temperature Pulse Rate 67 73 89 Respiratory Rate 28 H 33 H Blood Pressure 144/84 H 148/92 H 145/93 H Pulse Oximetry 96 93 L 90 L 01/09/18 11:09 01/09/18 11:20 01/09/18 11:31 Temperature Pulse Rate 98 H 95 H Respiratory Rate 32 H Blood Pressure 188/93 H 167/91 H Pulse Oximetry 88 L 89 L 90 L 01/09/18 11:40 01/09/18 12:00 01/09/18 12:22 Temperature 98.2 F Pulse Rate 90 109 H 175 H Respiratory Rate Blood Pressure 164/92 H 176/98 H 152/135 H Pulse Oximetry 93 L 93 L 92 L 01/09/18 12:24 01/09/18 12:41 01/09/18 13:00 Temperature Pulse Rate 93 H 92 H 115 H Respiratory Rate Blood Pressure 155/81 H 165/90 H 182/99 H Pulse Oximetry 91 L 93 L 91 L 01/09/18 13:20 01/09/18 13:39 01/09/18 13:40 Temperature Pulse Rate 115 H 130 H Respiratory Rate Blood Pressure 158/94 H 134/95 H Pulse Oximetry 94 L 01/09/18 14:00 01/09/18 14:20 01/09/18 14:40 Temperature Pulse Rate 82 82 120 H Respiratory Rate 28 H 29 H 33 H Blood Pressure 125/65 119/65 125/86 Pulse Oximetry 96 96 95 01/09/18 15:00 01/09/18 15:21 01/09/18 15:24 Temperature Pulse Rate 112 H 115 H 115 H Respiratory Rate 30 H 33 H Blood Pressure 175/88 H 188/100 H 157/87 H Pulse Oximetry 01/09/18 15:40 01/09/18 16:00 01/09/18 16:20 Temperature 98.7 F Pulse Rate 92 H 111 H 93 H Respiratory Rate 33 H 32 H 27 H Blood Pressure 129/68 135/83 124/69 Pulse Oximetry 96 98 01/09/18 16:40 01/09/18 17:00 01/09/18 17:20 Temperature Pulse Rate 103 H 99 H 105 H Respiratory Rate 27 H 25 H 27 H Blood Pressure 129/71 134/74 Pulse Oximetry 95 96 94 L 01/09/18 17:40 01/09/18 18:00 01/09/18 18:20 Temperature Pulse Rate 101 H 112 H 115 H Respiratory Rate 30 H 18 27 H Blood Pressure 126/73 123/63 140/70 Pulse Oximetry 95 97 01/09/18 18:34 01/09/18 18:40 01/09/18 19:00 Temperature Pulse Rate 118 H 104 H Respiratory Rate 24 34 H 22 Blood Pressure 138/74 139/71 Pulse Oximetry 96 01/09/18 19:21 01/09/18 19:40 01/09/18 20:00 Temperature 99.3 F Pulse Rate 111 H 104 H 102 H Respiratory Rate 31 H 35 H 34 H Blood Pressure 149/86 H 136/63 Pulse Oximetry 94 L 87 L 95 01/09/18 20:01 01/09/18 20:20 01/09/18 20:36 Temperature Pulse Rate 105 H 97 H 104 H Respiratory Rate 24 34 H 18 Blood Pressure 124/68 133/71 Pulse Oximetry 95 94 L 94 L 01/09/18 20:40 01/09/18 21:00 01/09/18 21:20 Temperature Pulse Rate 106 H 103 H 104 H Respiratory Rate 32 H 31 H 27 H Blood Pressure 134/76 125/77 129/63 Pulse Oximetry 93 L 94 L 95 01/09/18 21:40 01/09/18 22:00 01/09/18 22:20 Temperature Pulse Rate 99 H 105 H 93 H Respiratory Rate 24 32 H 21 Blood Pressure 131/72 121/65 130/67 Pulse Oximetry 97 78 L 98 01/09/18 22:40 01/09/18 23:00 01/09/18 23:20 Temperature Pulse Rate 100 H 103 H 107 H Respiratory Rate 27 H 26 H 28 H Blood Pressure 121/67 141/82 H 144/77 H Pulse Oximetry 89 L 91 L 90 L 01/09/18 23:40 01/10/18 00:00 01/10/18 00:20 Temperature 99.1 F Pulse Rate 110 H 93 H 100 H Respiratory Rate 31 H 21 19 Blood Pressure 148/89 H 130/81 139/73 Pulse Oximetry 93 L 93 L 96 01/10/18 00:40 01/10/18 01:51 01/10/18 04:00 Temperature 99 F Pulse Rate 91 H 93 H Respiratory Rate 23 16 Blood Pressure 134/65 Pulse Oximetry 97 01/10/18 04:17 01/10/18 07:40 Temperature Pulse Rate 103 H 98 H Respiratory Rate 16 22 Blood Pressure Pulse Oximetry 95 Intake & Output 01/09/18 01/10/18 01/10/18 18:59 06:59 18:59 Intake Total 2817.5 / 2817.5 3267.5 / 3267.5 Output Total 2099 / 2099 1999 / 1999 Balance 717.5 / 717.5 1267.5 / 1267.5 Weight 95 kg Intake: IV 717.5 / 717.5 767.5 / 767.5 Cleocin 900 mg/NS Premix 900 mg 100 / 100 50 / 50 In 50 ml @ 100 mls/hr IV.SIG Q8H MIAH Rx#:[id number] Zosyn 3.375 GM Premix 50 ML @ 100 / 100 100 / 100 100 mls/hr IV.SIG Q6H MIAH Rx#: [id number] KCl 20 mEq Premix Inj 20 meq In 100 / 100 100 ml @ 50 mls/hr IV.SIG Q2H PRN Rx#:[id number] Vancomycin Inj 1,750 MG In NS 517.5 / 517.5 517.5 / 517.5 Inj 500 ML @ 250 mls/hr IV.SIG Q12H MIAH Rx#:[id number] Oral 2099 2500 / 2500 Output: Urine 2099 / 1999 Other: # Voids 4 4 Date of Last Bowel Movement 01/10/18 # Bowel Movements 4 2 Result Diagrams: 01/10/18 01:19 01/10/18 01:19 Other Results: Microbiology 01/07/18 16:40 Blood - Peripheral Aerobic Blood Culture - Preliminary No growth in 2 days 01/07/18 16:40 Blood - Peripheral Anaerobic Blood Culture - Preliminary No growth in 2 days 01/07/18 16:35 Blood - Peripheral Aerobic Blood Culture - Preliminary No growth in 2 days 01/07/18 16:35 Blood - Peripheral Anaerobic Blood Culture - Preliminary No growth in 2 days 01/07/18 16:20 Wound - Elbow Gram Stain - Final 01/07/18 16:20 Wound - Elbow Wound Culture - Final Staphylococcus aureus Group A beta (Strep pyogenes) Imaging: Elbow X-Ray 01/07/18 05:59 CONCLUSION: 1. Soft tissue swelling about the olecranon. 2. No fracture or dislocation seen. Forearm X-Ray 01/07/18 05:59 CONCLUSION: No evidence of recent bony injury. Hand X-Ray 01/07/18 05:59 CONCLUSION: Probable old boxer's fracture. No evidence of recent bony injury. Humerus X-Ray 01/07/18 05:59 CONCLUSION: No evidence of recent bony injury. Elbow CT 01/08/18 00:00 CONCLUSION: 1. 7 mm loose body identified within the elbow at the level of the olecranon fossa. No evidence of fracture. 2. Subcutaneous edema overlying the posterior aspect of the elbow without evidence of abscess or foreign body within the soft tissues. Forearm CT 01/08/18 00:00 CONCLUSION: 1. 7 mm loose body identified within the joint at the level of the olecranon fossa. No evidence of fracture or abscess. Extensive subcutaneous edema. Venous Doppler Study 01/08/18 00:00 CONCLUSION: 1. Negative for deep venous thrombosis right upper extremity. Liver Ultrasound 01/09/18 00:00 CONCLUSION: 1. Fatty liver enlarged to 22 cm. 2. Gallbladder wall is mildly thickened but without gallstones or biliary ductal dilatation. 3. Nonobstructing right renal calculus. Chest X-Ray 01/09/18 09:46 CONCLUSION: Bilateral mostly basilar partial lung consolidation. Differential diagnosis includes pneumonia and aspiration. Objective Remarks: GENERAL: 57-year-old male resting in bed in no acute distress SKIN: Warm and dry. Erythema elbow. Bilateral lower extremity erythema HEAD: Normocephalic. EYES: No scleral icterus. No injection or drainage. NECK: Supple, trachea midline. No JVD or lymphadenopathy. CARDIOVASCULAR: Regular rate and rhythm without murmurs, gallops, or rubs. RESPIRATORY: Breath sounds equal bilaterally.Coarse BS GASTROINTESTINAL: Abdomen soft, non-tender, nondistended. MUSCULOSKELETAL: + Upper and lower extremity edema. Neuro: Cranial nerves II through XII grossly intact. Strength is equal symmetric. Normal sensation Assessment and Plan - Assessment and Plan Plan: 1) acute Resp Insuff 2)Alcohol withdrawal 3)Right upper extremity and bilateral lower extremity cellulitis 4)Elevated LFT;s 5) leukocytosis 6) macrocytic anemia 7) hypokalemia 8) hyponatremia Plan Neuro: On CIWA protocol with Lorazepam Regitine Monitor neuro status Decrease chlordiazepoxide 25mg Q12 Seizure precaution. Monitor for signs of ETOH withdrawal Thiamine folate and multivitamins Sharon 5-10/325 1 tablet every 4 hours as needed pain. Acetaminophen for fever Pulm: Continue with oxygen keep sats >92% Bronchodilators every 4 hours/every 2 as needed dyspnea CV: Monitor HR and BP keep MAP>65mmHg Renal/: Monitor renal function, I/O's, electrolytes replacement per protocol GI: On PO diet, monitor LFT's, check US Liver -hepatomegaly and right nonobstructing nephrolithiasis and Hepatitis profile -(-). Place on Protonix 40mg daily ID: Continue with abx( Vanco, piperacillin/tazobactam and clindamycin) Monitor for signs of infections ( Fever, WBC) Wound cx: Strep Pyogenes, Staph Aureus. PC and sensitive. Ask ID for recommendations duration of antibiotics CT forearm: 7 mm loose body identified within the elbow at the level of the olecranon fossa. No evidence of fracture. Subcutaneous edema overlying the posterior aspect of the elbow without evidence of abscess or foreign body within the soft tissues. Vascular surgery has followed. Dr. Christina Wound care consult. Doppler US RUE negative for DVT Heme: Monitor CBC Endo: SSI if needed for glycemic control DVT prophylaxis -Teds SCDs -Subcu heparin Level 2 follow-up. Patient stable from critical care medicine standpoint. Assign care to hospitalist in a.m. 01/11
[2018-01-10] MEDS: Potassium Phos/Sodium Phos 250 MG Tablet PO SCH ×2 (11:59→21:48)
[2018-01-10] MEDS: chlordiazePOXIDE 25 MG Capsule PO SCH ×2 (12:00→21:49)
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
[2018-01-10] MEDS: Mag Sulf 1 gm/100 ml Premix 100 ML IV.SIG SCH ×2 (13:43→14:19)
[2018-01-10] MEDS: ceFAZolin Inj 2,000 MG in Sodium Chlor 0.9% Inj 80 ML IV.SIG SCH ×2 (14:22→22:08)
[2018-01-10] MEDS: Collagenase Oint 30 GM Tube TOPICAL SCH (18:39)
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
[2018-01-10] MEDS: Magnesium Oxide 400 MG Tablet PO SCH (21:50)
[2018-01-11] MEDS: Insulin NovoLIN Regular Correctional Sugar Inj SQ SCH ×2 (00:19→05:31)
[2018-01-11] MEDS: ceFAZolin Inj 2,000 MG in Sodium Chlor 0.9% Inj 80 ML IV.SIG SCH ×3 (05:27→23:26)
[2018-01-11 07:35] LABS: Baso # (Auto) 0.1 th/mm3 (0.0-0.2); Baso % (Auto) 0.6 % (0.0-2.0); Eos # (Auto) 0.1 th/mm3 (0.0-0.4); Eos % (Auto) 0.7 % (0.0-4.0); Hematocrit 31.9 % (39.0-51.0); Lymph # (Auto) 0.8 th/mm3 (1.0-4.8); Lymph % (Auto) 8.4 % (9.0-44.0); Mean Corpuscular HGB Conc 34.3 % (32.0-36.0); Mean Corpuscular Hemoglobin 35.7 pg (27.0-34.0); Mean Corpuscular Volume 104.1 fL (80.0-100.0); Mean Platelet Volume 8.5 fL (7.0-11.0); Mono # (Auto) 1.2 th/mm3 (0.0-0.9); Mono % (Auto) 13.3 % (0.0-8.0); Platelet Count 249 th/mm3 (150-450); Red Blood Count 3.07 mil/mm3 (4.50-5.90); Red Cell Distribution Width 15.6 % (11.6-17.2); White Blood Count 9.1 th/mm3 (4.0-11.0)
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
[2018-01-11 08:15] LABS: Alanine Aminotransferase 135 U/L (12-78); Albumin 2.1 g/dL (3.4-5.0); Anion Gap 9 meq/L (5-15); Aspartate Aminotransferase 148 U/L (15-37); Blood Urea Nitrogen 9 mg/dL (7-18); Carbon Dioxide 28.3 meq/L (21.0-32.0); Chloride 101 meq/L (98-107); Glomerular Filtration Rate 61 mL/min (>89); Glucose,Random 94 mg/dL (74-106); Magnesium 1.9 mg/dL (1.5-2.5); Phosphorus 2.6 mg/dL (2.5-4.9); Potassium 3.2 meq/L (3.5-5.1); Sodium 138 meq/L (136-145)
[2018-01-11 08:18] LABS: Alkaline Phosphatase 140 U/L (45-117); Total Protein 6.4 g/dL (6.4-8.2)
[2018-01-11 08:53] LABS: Eosinophils 1 % (0-4); Lymphocytes 5 % (9-44); Monocytes 7 % (0-8); Myelocytes 2 % (0-0); Toxic Granulation 1+
[2018-01-11 08:54] LABS: Platelet Estimate Normal (Normal); Platelet Morphology Normal (Normal)
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
[2018-01-11] MEDS: chlordiazePOXIDE 25 MG Capsule PO SCH ×2 (11:16→17:15)
[2018-01-11] MEDS: Senna/Docusate Sodium 8.6/50 MG Tablet PO SCH ×2 (11:16→23:07)
[2018-01-11] MEDS: Mupirocin 2% Nasal Oint Topical Syringe EACH NARE SCH ×2 (11:16→23:27)
[2018-01-11] MEDS: Folic Acid 1 MG Tablet PO SCH (11:16)
[2018-01-11] MEDS: Multivitamin/Minerals Therapeutic Tablet PO SCH (11:16)
[2018-01-11] MEDS: Potassium Phos/Sodium Phos 250 MG Tablet PO SCH ×2 (11:16→23:07)
[2018-01-11] MEDS: Heparin - SQ 10,000 UNITS/ML Vial SQ SCH ×2 (11:17→23:09)
[2018-01-11] MEDS: Magnesium Oxide 400 MG Tablet PO SCH ×2 (11:18→23:07)
[2018-01-11] MEDS: Collagenase Oint 30 GM Tube TOPICAL SCH (17:12)
[2018-01-11] MEDS: KCL 20 mEq/D5W/NaCl 0.9% Inj 1,000 ML IV.CONT SCH ×2 (17:14)
[2018-01-12] MEDS: chlordiazePOXIDE 25 MG Capsule PO SCH ×3 (01:22→17:46)
[2018-01-12] MEDS: ceFAZolin Inj 2,000 MG in Sodium Chlor 0.9% Inj 80 ML IV.SIG SCH ×3 (06:07→22:14)
[2018-01-12] MEDS: KCL 20 mEq/D5W/NaCl 0.9% Inj 1,000 ML IV.CONT SCH ×2 (06:08→17:46)
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
[2018-01-12] MEDS: Heparin - SQ 10,000 UNITS/ML Vial SQ SCH ×2 (09:00→21:49)
[2018-01-12] MEDS: Magnesium Oxide 400 MG Tablet PO SCH (09:00)
[2018-01-12] MEDS: Mupirocin 2% Nasal Oint Topical Syringe EACH NARE SCH ×2 (09:00→21:49)
[2018-01-12] MEDS: Potassium Phos/Sodium Phos 250 MG Tablet PO SCH ×2 (09:00→22:57)
[2018-01-12] MEDS: Senna/Docusate Sodium 8.6/50 MG Tablet PO SCH ×2 (10:40→21:51)
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
[2018-01-12] MEDS: Lactic Acid (Ammonium Lactate) 12% Lotion 225 GM Bottle TOPICAL SCH ×2 (16:08→21:51)
[2018-01-12] MEDS: Collagenase Oint 30 GM Tube TOPICAL SCH (16:08)
[2018-01-13] MEDS: chlordiazePOXIDE 25 MG Capsule PO SCH ×4 (02:39→23:00)
[2018-01-13] MEDS: KCL 20 mEq/D5W/NaCl 0.9% Inj 1,000 ML IV.CONT SCH (02:40)
[2018-01-13] MEDS: ceFAZolin Inj 2,000 MG in Sodium Chlor 0.9% Inj 80 ML IV.SIG SCH ×3 (05:10→22:59)
[2018-01-13 05:21] LABS: Alanine Aminotransferase 52 U/L (12-78); Albumin 2.2 g/dL (3.4-5.0); Anion Gap 8 meq/L (5-15); Aspartate Aminotransferase 40 U/L (15-37); Blood Urea Nitrogen 10 mg/dL (7-18); Calcium 8.3 mg/dL (8.5-10.1); Carbon Dioxide 27.1 meq/L (21.0-32.0); Chloride 108 meq/L (98-107); Glomerular Filtration Rate 65 mL/min (>89); Glucose,Random 144 mg/dL (74-106); Potassium 3.1 meq/L (3.5-5.1); Sodium 143 meq/L (136-145)
[2018-01-13 05:23] LABS: Alkaline Phosphatase 116 U/L (45-117); Total Protein 6.7 g/dL (6.4-8.2)
[2018-01-13] MEDS: Potassium Phos/Sodium Phos 250 MG Tablet PO SCH (08:42)
[2018-01-13] MEDS: Heparin - SQ 10,000 UNITS/ML Vial SQ SCH ×2 (08:44→22:58)
[2018-01-13] MEDS: Lactic Acid (Ammonium Lactate) 12% Lotion 225 GM Bottle TOPICAL SCH ×2 (08:44→23:00)
[2018-01-13] MEDS: Collagenase Oint 30 GM Tube TOPICAL SCH (08:45)
[2018-01-13] MEDS: Senna/Docusate Sodium 8.6/50 MG Tablet PO SCH ×2 (08:45→22:58)
[2018-01-13] MEDS: Mupirocin 2% Nasal Oint Topical Syringe EACH NARE SCH ×2 (08:54→23:00)
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
[2018-01-13] MEDS: Potassium Chloride Inj 30 MEQ in Dextrose 5%/NaCl 0.9% Inj 1,000 ML IV.CONT SCH (19:06)
[2018-01-13] MEDS: Temazepam 15 MG Capsule PO PRN (22:58)
[2018-01-14] MEDS: Potassium Chloride Inj 30 MEQ in Dextrose 5%/NaCl 0.9% Inj 1,000 ML IV.CONT SCH ×2 (01:30→21:05)
[2018-01-14] MEDS: chlordiazePOXIDE 25 MG Capsule PO SCH ×4 (02:46→21:06)
[2018-01-14] MEDS: ceFAZolin Inj 2,000 MG in Sodium Chlor 0.9% Inj 80 ML IV.SIG SCH ×3 (06:26→21:05)
[2018-01-14 07:35] LABS: Albumin 2.2 g/dL (3.4-5.0); Anion Gap 10 meq/L (5-15); Aspartate Aminotransferase 31 U/L (15-37); Blood Urea Nitrogen 8 mg/dL (7-18); Calcium 8.3 mg/dL (8.5-10.1); Carbon Dioxide 25.8 meq/L (21.0-32.0); Chloride 109 meq/L (98-107); Glomerular Filtration Rate 65 mL/min (>89); Glucose,Random 107 mg/dL (74-106); Potassium 3.5 meq/L (3.5-5.1); Sodium 145 meq/L (136-145)
[2018-01-14 07:40] LABS: Alanine Aminotransferase 32 U/L (12-78); Alkaline Phosphatase 102 U/L (45-117); Total Protein 6.6 g/dL (6.4-8.2)
[2018-01-14] MEDS: Senna/Docusate Sodium 8.6/50 MG Tablet PO SCH (09:16)
[2018-01-14] MEDS: Heparin - SQ 10,000 UNITS/ML Vial SQ SCH ×2 (09:17→21:06)
[2018-01-14] MEDS: Mupirocin 2% Nasal Oint Topical Syringe EACH NARE SCH ×2 (09:17→21:07)
[2018-01-14] MEDS: Lactic Acid (Ammonium Lactate) 12% Lotion 225 GM Bottle TOPICAL SCH ×2 (09:18→21:07)
[2018-01-14] MEDS: LORazepam 1 MG Tablet PO PRN (09:33)
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
[2018-01-14] MEDS ORDERED: Potassium Chloride 10 MEQ ER Capsule PO ONE (11:13)
[2018-01-14] MEDS: Collagenase Oint 30 GM Tube TOPICAL SCH (17:18)
[2018-01-14] MEDS: Temazepam 15 MG Capsule PO PRN (21:07)
[2018-01-15] MEDS: chlordiazePOXIDE 25 MG Capsule PO SCH ×4 (02:11→21:44)
[2018-01-15] MEDS: Senna/Docusate Sodium 8.6/50 MG Tablet PO SCH ×3 (02:12→21:45)
[2018-01-15] MEDS: ceFAZolin Inj 2,000 MG in Sodium Chlor 0.9% Inj 80 ML IV.SIG SCH ×3 (05:21→22:45)
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
[2018-01-15] MEDS: Mupirocin 2% Nasal Oint Topical Syringe EACH NARE SCH ×2 (09:02→21:44)
[2018-01-15] MEDS: Heparin - SQ 10,000 UNITS/ML Vial SQ SCH ×2 (09:03→21:44)
[2018-01-15 10:03] LABS: Calcium 8.4 mg/dL (8.5-10.1); Carbon Dioxide 24.3 meq/L (21.0-32.0); Potassium 4.2 meq/L (3.5-5.1)
[2018-01-15] MEDS: Sodium Chlor 0.9% Inj 500 ML IV.CONT SCH (13:52)
[2018-01-15] MEDS: Lactic Acid (Ammonium Lactate) 12% Lotion 225 GM Bottle TOPICAL SCH ×2 (13:57→21:50)
[2018-01-15] MEDS: Collagenase Oint 30 GM Tube TOPICAL SCH (15:52)
[2018-01-15] MEDS: Temazepam 15 MG Capsule PO PRN (21:44)
[2018-01-16] MEDS: chlordiazePOXIDE 25 MG Capsule PO SCH ×4 (03:52→21:11)
[2018-01-16] MEDS: Sodium Chlor 0.9% Inj 500 ML IV.CONT SCH ×3 (03:54→18:32)
[2018-01-16] MEDS: ceFAZolin Inj 2,000 MG in Sodium Chlor 0.9% Inj 80 ML IV.SIG SCH ×3 (06:33→23:23)
[2018-01-16 07:04] LABS: Calcium 8.8 mg/dL (8.5-10.1); Carbon Dioxide 25.2 meq/L (21.0-32.0); Potassium 3.9 meq/L (3.5-5.1)
[2018-01-16] MEDS: Heparin - SQ 10,000 UNITS/ML Vial SQ SCH ×2 (09:50→21:12)
[2018-01-16] MEDS: Senna/Docusate Sodium 8.6/50 MG Tablet PO SCH ×2 (09:51→21:11)
[2018-01-16] MEDS: Lactic Acid (Ammonium Lactate) 12% Lotion 225 GM Bottle TOPICAL SCH ×2 (09:51→22:26)
[2018-01-16] MEDS: Collagenase Oint 30 GM Tube TOPICAL SCH (09:51)
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
--- NOTE | 2018-01-16 11:12 | P.PNIM ---
Subjective Interval history: f/u; cellulitis right elbow still with pain and some swelling of the right elbow. no fever. Physical Exam Vital signs: Vital Signs 01/15/18 12:00 01/15/18 12:27 01/15/18 16:00 Temperature 97.8 F 98.8 F Pulse Rate 69 78 81 Respiratory Rate 18 18 Blood Pressure 150/83 H 144/88 H Pulse Oximetry 92 L 97 01/15/18 20:00 01/15/18 21:45 01/15/18 22:15 Temperature 98.5 F Pulse Rate 76 85 Respiratory Rate 16 20 Blood Pressure 134/79 Pulse Oximetry 95 01/16/18 00:00 01/16/18 04:00 01/16/18 08:00 Temperature 98.5 F 99 F 98.1 F Pulse Rate 76 63 65 Respiratory Rate 16 18 18 Blood Pressure 134/79 138/82 142/86 H Pulse Oximetry 95 94 L 93 L 01/16/18 08:06 Temperature Pulse Rate 69 Respiratory Rate Blood Pressure Pulse Oximetry Intake & Output 01/15/18 01/16/18 01/16/18 18:59 06:59 18:59 Intake Total 820 / 820 1043 / 1043 Output Total 825 / 825 1200 / 1200 Balance -5 / -5 -157 / -157 Weight 91 kg Intake: IV 100 / 100 563 / 563 KCl Inj 30 MEQ In D5W/Normal 350 / 350 Saline Inj 1,000 ML @ 70 mls/hr IV.CONT .[id number] MIAH Rx#: [id number] NS Inj 500 ML @ 50 mls/hr IV. 113 / 113 CONT .Q10H MIAH Rx#:[id number] Ancef Inj 2,000 MG In NS Inj 80 100 / 100 100 / 100 ML @ 200 mls/hr IV.SIG Q8H MIA[facility] Rx#:[id number] Oral 720 / 720 480 / 480 Output: Urine 825 / 825 1200 / 1200 Other: Date of Last Bowel Movement 01/13/18 # Bowel Movements 0 - Constitutional no acute distress - Routine Respiratory Exam Present: CTA bilaterally - Routine Cardiovascular Exam Present: RRR - Routine Abdominal Exam Present: soft - Routine Extremities Exam Present: edema (right elbow) - Routine Neurological Exam Present: alert, oriented X3 - Urinary Catheter Management Condom Cath placed during this visit: no Results - Labs CBC & Chem 7: 01/11/18 06:54 01/16/18 04:02 Laboratory Results - last 24 hr 01/16/18 04:02 Sodium 143 Potassium 3.9 Chloride 107 Carbon Dioxide 25.2 Anion Gap 11 BUN 10 Creatinine 1.33 H Estimated GFR 56 L Random Glucose 91 Calcium 8.8 Assessment and Plan - Plan Acute DTS- resolved- now oriented x 3- - S/P Precedex drip - will continue to taper down the Librium slowly. - Seizure precaution. - Thiamine folate and multivitamins Sepsis from RUE severe cellulitis/bursitis + bilateral LE cellulitis - ID ff - on IV Ancef 2 gm q 8 Wound cx: Strep Pyogenes, Staph Aureus. PC and sensitive. CT forearm: 7 mm loose body identified within the elbow at the level of the olecranon fossa. No evidence of fracture. Subcutaneous edema overlying the posterior aspect of the elbow without evidence of abscess or foreign body within the soft tissues. Vascular surgery has followed. Dr. Christina Doppler US RUE negative for DVT- wound care team ff for LE reyes wounds, and RUE wound Lortab 5 q 6 prn for pain wound care physician consulted for possible debridement. FREDERIC- - improved Hypokalemia- - improved Hyponatremia- improved Hypophosphatemia- improved - on KCL 20 meq po bid Alcohol hepatitis liver disease - On PO diet, monitor LFT's - trending down - now normal- improved - check US Liver -hepatomegaly and right nonobstructing nephrolithiasis and Hepatitis profile -(-). - Protonix 40mg daily - counselled extensively some elevated BPs readings- likely related to DTs patient denies history of HTN - monitor Dry skin - lacydrin lotion to both extremities bid DVT prophylaxis -Teds SCDs -Subcu heparin PT/OT daily Discharge Planning: will monitor the progress with PT. patient is homeless. awaiting wound care physician evaluation.
[2018-01-17] MEDS: chlordiazePOXIDE 25 MG Capsule PO SCH (04:14)
[2018-01-17] MEDS: Senna/Docusate Sodium 8.6/50 MG Tablet PO SCH ×2 (08:29→20:27)
[2018-01-17] MEDS: Heparin - SQ 10,000 UNITS/ML Vial SQ SCH ×2 (08:29→20:28)
[2018-01-17] MEDS: Collagenase Oint 30 GM Tube TOPICAL SCH (08:30)
[2018-01-17] MEDS: Lactic Acid (Ammonium Lactate) 12% Lotion 225 GM Bottle TOPICAL SCH ×2 (08:30→21:01)
--- NOTE | 2018-01-17 11:18 | P.CONWOU ---
History of Present Illness Service: 01/17/18 Consult date: 01/16/18 Requesting Physician: Earlene Najera Reason for Consult: Right forearm ulcer Primary Care Provider: No Primary Care Physician Family Provider: No Primary Care Physician [facility] - History History Provided By: Patient - Medical / Surgical Hx Neg / Unobtainable Medical Problems Denied: Yes - Medical History Medical History: Medical History (Last Reviewed 01/16/18 @ 09:17 by Tri Torres) Patient denies medical problems - Surgical History Surgical History: Surgical History (Last Reviewed 01/14/18 @ 09:58 by Richmond Mariscal) History of nasal surgery Hx of abdominal surgery Hx of foot surgery Hx of hand surgery Hx of neck surgery - Family History Family History: Family History (Last Reviewed 01/16/18 @ 09:18 by Tri Torres) Other CAD (coronary artery disease) - Tobacco History Second Hand Smoke Exposure: No Smoking Status: Former smoker Tobacco Type: Cigarettes - Alcohol History How Often Do You Have a Drink Containing Alcohol: 4 or more times a week - Substance Use History Substance History: No History of Abuse - Travel History Recent Travel in the [place] Within the Last 8 Weeks: No Recent Travel Out of the Country Within the Last 8 Weeks: No - Immunization History Tetanus Immunization: Unsure Hx Influenza Vaccine This Season: No Medications and Allergies Active Medications: Active Medications Hydrocodone Bitart/Acetaminophen ([place] 5/325) 1 tab PO Q4H PRN PRN Reason: pain 4-10- elbow Last Admin: 01/17/18 08:30 Dose: 1 tab Al Hydroxide/Mg Hydroxide (Milk Of Magndea Liq) 30 ml PO Q12H PRN PRN Reason: Mild Constipation Albuterol (Albuterol Neb (Prn)) 2.5 mg NEB Q2HR NEB PRN PRN Reason: DYSPNEA Bisacodyl (Dulcolax Supp) 10 mg RECTAL DAILY PRN PRN Reason: SEVERE CONSITIPATION Chlordiazepoxide (Librium) 25 mg PO Q8H MIAH Last Admin: 01/17/18 04:14 Dose: 25 mg Clonidine HCl (Catapres) 0.1 mg PO Q6H PRN PRN Reason: For SBP >/= 180, DBP >/= 100 Last Admin: 01/10/18 22:09 Dose: 0.1 mg Collagenase (Santyl Oint) 1 applicatio TOPICAL DAILY [facility], [facility]1983 Last Admin: 01/17/18 08:30 Dose: 1 applicatio Dextrose (D50w Vial) 50 ml IV.PUSH UNSCH PRN PRN Reason: PER HYPOGLYCEMIA PROTOCOL Flumazenil (Romazecon Inj) 0.2 mg IV.PUSH Q1M PRN PRN Reason: OVERSEDATION Glucagon (Glucagon Inj) 1 mg OTHER PRN PRN PRN Reason: for Hypoglycemia Protocol Heparin Sodium (Porcine) (Heparin Inj) 5,000 units SQ Q12HR [facility], [facility]1983 Last Admin: 01/17/18 08:29 Dose: 5,000 units Magnesium Sulfate Inj 4 gm/ (Sodium Chloride) 100 mls @ 50 mls/hr IV.SIG UNSCH PRN PRN Reason: For Magnesium 0.9 - 1.1 mg/dL Cefazolin Sodium 2,000 mg/ (Sodium Chloride) 100 mls @ 200 mls/hr IV.SIG Q8H [facility], [facility] Last Admin: 01/16/18 23:23 Dose: 200 mls/hr Sodium Chloride (Ns Inj) 500 mls @ 50 mls/hr IV.CONT .Q10H [facility], [facility] Last Admin: 01/16/18 18:32 Dose: 50 mls/hr Lactic Acid (Lac-Hydrin 12% Lotion) 1 applicatio TOPICAL BID [facility], [facility] Last Admin: 01/17/18 08:30 Dose: 1 applicatio Lactulose (Lactulose Liq) 30 ml PO DAILY PRN PRN Reason: SEVERE CONSITIPATION Nicotine (Habitrol 21 Mg Patch.24 Hr) 1 patch T-DERMAL DAILY [facility], [facility] Last Admin: 01/17/18 08:30 Dose: 1 patch Ondansetron HCl (Zofran Inj) 4 mg IV.PUSH Q6H PRN PRN Reason: NAUSEA OR VOMITING Last Admin: 01/07/18 10:05 Dose: 4 mg Patch Removal (Remove Old Patch) 1 each T-DERMAL DAILY [facility], [facility] Last Admin: 01/17/18 08:30 Dose: 1 each Potassium Chloride (K-Dur) 20 meq PO BID [facility], [facility] Last Admin: 01/17/18 08:29 Dose: 20 meq Senna/Docusate Sodium (Tisha-Colace) 1 tab PO BID [facility] Last Admin: 01/17/18 08:29 Dose: 1 tab Sennosides (Senokot) 17.2 mg PO Q12H PRN PRN Reason: Moderate Constipation Temazepam (Restoril) 15 mg PO HS PRN PRN Reason: SLEEP Last Admin: 01/15/18 21:44 Dose: 15 mg Thiamine HCl (Vitamin B1) 100 mg PO DAILY [facility] Last Admin: 01/17/18 08:29 Dose: 100 mg Allergies Allergy/AdvReac Type Severity Reaction Status Date / Time No Known Allergies Allergy Verified 01/07/18 05:56 Home Medications Medication Instructions Recorded Confirmed Type No Known Home Medications 01/07/18 01/07/18 History Physical Exam Vital signs: Vital Signs 01/16/18 11:53 01/16/18 12:00 01/16/18 15:53 Temperature 98.6 F Pulse Rate 71 55 L 63 Respiratory Rate 18 Blood Pressure 124/71 Pulse Oximetry 96 01/16/18 16:00 01/16/18 20:00 01/17/18 00:00 Temperature 98.8 F 98.0 F 98.0 F Pulse Rate 63 72 68 Respiratory Rate 18 19 19 Blood Pressure 127/71 138/82 164/105 H Pulse Oximetry 93 L 98 93 L 01/17/18 04:00 Temperature 98.1 F Pulse Rate 64 Respiratory Rate 20 Blood Pressure 150/90 H Pulse Oximetry 96 Intake & Output 01/16/18 01/17/18 01/17/18 18:59 06:59 18:59 Intake Total 680 / 680 240 / 240 Output Total 1300 / 1300 Balance -620 / -620 240 / 240 Weight 90.7 kg Intake: IV 200 / 200 Ancef Inj 2,000 MG In NS Inj 80 200 / 200 ML @ 200 mls/hr IV.SIG Q8H [facility] Rx#:[id number] Oral 480 / 480 240 / 240 Output: Urine 1300 / 1300 Other: # Voids 2 Date of Last Bowel Movement 01/13/18 01/13/18 - Urinary Catheter Management Condom Cath placed during this visit: no Wound/Pressure Injury - Patient Status Premedicated for Pain Prior to Dressing Change: No - Wound Right [place] Wound Assessment: Ongoing Wound Type: Lesion Requested from Provider a Wound Care Consult: Yes Length: 2 Width: 1 Surrounding Tissue Appearance: Dark Red Dressing Status: Changed Cover Dressing: Gauze Roll/Wrap Left [place] Wound Assessment: Ongoing Wound Type: Lesion Is This a Chronic Wound: No Requested from Provider a Wound Care Consult: Yes Length: 1 Width: 3 Wound Bed Appearance: Red, White, Yellow Surrounding Tissue Appearance: Dark Red, Edematous Surrounding Tissue Temperature: Warm Dressing Status: Changed Primary Dressing: Petroleum Gauze Cover Dressing: Gauze Roll/Wrap Right Arm Wound Assessment: Ongoing Wound Type: Lesion Is This a Chronic Wound: Yes Requested from Provider a Wound Care Consult: Yes Length: 2 Width: 1 Wound Bed Appearance: Peeling Skin, Red, White, Yellow Surrounding Tissue Appearance: Edematous, Erythema, Indurated, Weeping Surrounding Tissue Temperature: Warm Drainage Description: Serosanguinous Drainage Amount: Moderate Drainage Odor: No Odor Dressing Status: Changed Cleansing Solution: Saline Primary Dressing: Gauze Pad Cover Dressing: Gauze Roll/Wrap Incision - Patient Status Premedicated for Pain Prior to Dressing Change: No
--- NOTE | 2018-01-17 11:34 | P.PNIM ---
Subjective Interval history: f/u; cellulitis right elbow in no acute distress. but complaining of pain to the right elbow- says that the current pain regimen ' is not working'. no fever. Physical Exam Vital signs: Vital Signs 01/16/18 11:53 01/16/18 12:00 01/16/18 15:53 Temperature 98.6 F Pulse Rate 71 55 L 63 Respiratory Rate 18 Blood Pressure 124/71 Pulse Oximetry 96 01/16/18 16:00 01/16/18 20:00 01/17/18 00:00 Temperature 98.8 F 98.0 F 98.0 F Pulse Rate 63 72 68 Respiratory Rate 18 19 19 Blood Pressure 127/71 138/82 164/105 H Pulse Oximetry 93 L 98 93 L 01/17/18 04:00 Temperature 98.1 F Pulse Rate 64 Respiratory Rate 20 Blood Pressure 150/90 H Pulse Oximetry 96 Intake & Output 01/16/18 01/17/18 01/17/18 18:59 06:59 18:59 Intake Total 680 / 680 240 / 240 Output Total 1300 / 1300 Balance -620 / -620 240 / 240 Weight 90.7 kg Intake: IV 200 / 200 Ancef Inj 2,000 MG In NS Inj 80 200 / 200 ML @ 200 mls/hr IV.SIG Q8H MIAH Rx#:[id number] Oral 480 / 480 240 / 240 Output: Urine 1300 / 1300 Other: # Voids 2 Date of Last Bowel Movement 01/13/18 01/13/18 - Constitutional no acute distress - Routine Respiratory Exam Present: CTA bilaterally - Routine Cardiovascular Exam Present: RRR - Routine Abdominal Exam Present: soft - Routine Extremities Exam Comments: right elbow covered with clean dressing. - Routine Neurological Exam Present: alert, oriented X3 - Urinary Catheter Management Condom Cath placed during this visit: no Results - Labs CBC & Chem 7: 01/11/18 06:54 01/16/18 04:02 Assessment and Plan - Plan Acute DTS- resolved- now oriented x 3- - S/P Precedex drip - will continue to taper down the Librium slowly. - Seizure precaution. - Thiamine folate and multivitamins Sepsis from RUE severe cellulitis/bursitis + bilateral LE cellulitis - ID ff - on IV Ancef 2 gm q 8 Wound cx: Strep Pyogenes, Staph Aureus. PC and sensitive. CT forearm: 7 mm loose body identified within the elbow at the level of the olecranon fossa. No evidence of fracture. Subcutaneous edema overlying the posterior aspect of the elbow without evidence of abscess or foreign body within the soft tissues. Vascular surgery has followed. Dr. Christina Doppler US RUE negative for DVT- wound care team ff for LE reyes wounds, and RUE wound will change the pain regime to norco 10 q 4hrs as needed- wound care physician consulted for possible debridement. FREDERIC- - improved Hypokalemia- - improved Hyponatremia- improved Hypophosphatemia- improved - on KCL 20 meq po bid Alcohol hepatitis liver disease - On PO diet, monitor LFT's - trending down - now normal- improved - check US Liver -hepatomegaly and right nonobstructing nephrolithiasis and Hepatitis profile -(-). - Protonix 40mg daily - counselled extensively some elevated BPs readings- likely related to DTs patient denies history of HTN - monitor Dry skin - lacydrin lotion to both extremities bid DVT prophylaxis -Teds SCDs -Subcu heparin PT/OT daily Discharge Planning: will monitor the progress with PT. patient is homeless. awaiting wound care physician evaluation.
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
[2018-01-17] MEDS: Sodium Chlor 0.9% Inj 500 ML IV.CONT SCH ×2 (12:59→20:01)
[2018-01-17] MEDS: ceFAZolin Inj 2,000 MG in Sodium Chlor 0.9% Inj 80 ML IV.SIG SCH ×3 (13:00→21:00)
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
[2018-01-18] MEDS: Sodium Chlor 0.9% Inj 500 ML IV.CONT SCH ×2 (02:53→20:16)
[2018-01-18] MEDS: ceFAZolin Inj 2,000 MG in Sodium Chlor 0.9% Inj 80 ML IV.SIG SCH (05:32)
[2018-01-18] MEDS: Senna/Docusate Sodium 8.6/50 MG Tablet PO SCH ×2 (08:57→20:41)
[2018-01-18] MEDS: Lactic Acid (Ammonium Lactate) 12% Lotion 225 GM Bottle TOPICAL SCH ×2 (08:58→20:41)
[2018-01-18] MEDS: Heparin - SQ 10,000 UNITS/ML Vial SQ SCH ×2 (08:58→20:40)
--- NOTE | 2018-01-18 10:59 | P.PNIM ---
Subjective Interval history: f/u; cellulitis right elbow in no acute distress. although complaining of pain, he looks fairly comfortable. no fever. Physical Exam Vital signs: Vital Signs 01/17/18 12:00 01/17/18 16:00 01/17/18 20:00 Temperature 98.1 F 98.7 F 98.7 F Pulse Rate 57 L 66 66 Respiratory Rate 20 20 18 Blood Pressure 137/85 116/69 123/69 Pulse Oximetry 94 L 93 L 90 L 01/18/18 00:00 01/18/18 04:00 01/18/18 08:00 Temperature 97.3 F L 97.2 F L 98.6 F Pulse Rate 55 L 68 59 L Respiratory Rate 17 18 20 Blood Pressure 165/80 H 134/68 111/77 Pulse Oximetry 94 L 92 L 97 01/18/18 08:57 Temperature Pulse Rate Respiratory Rate 20 Blood Pressure Pulse Oximetry Intake & Output 01/17/18 01/18/18 01/18/18 18:59 06:59 18:59 Intake Total 700 / 700 1484 / 1484 Balance 700 / 700 1484 / 1484 Intake: IV 100 / 100 700 / 700 NS Inj 500 ML @ 50 mls/hr IV. 500 / 500 CONT .Q10H MIAH Rx#:[id number] Ancef Inj 2,000 MG In NS Inj 80 100 / 100 200 / 200 ML @ 200 mls/hr IV.SIG Q8H MIAH Rx#:[id number] Oral 600 / 600 780 / 780 Oral Supplement 4 / 4 Other: # Voids 4 3 Date of Last Bowel Movement 01/13/18 01/13/18 # Bowel Movements 2 - Constitutional no acute distress - Routine Respiratory Exam Present: CTA bilaterally - Routine Cardiovascular Exam Present: RRR - Routine Abdominal Exam Present: soft - Routine Extremities Exam Comments: right elbow covered with clean dressing. - Routine Neurological Exam Present: alert, oriented X3 - Urinary Catheter Management Condom Cath placed during this visit: no Results - Labs CBC & Chem 7: 01/11/18 06:54 01/16/18 04:02 Microbiology 01/17/18 11:15 Fluid - Other Gram Stain - Final Assessment and Plan - Plan Acute DTS- resolved- now oriented x 3- - S/P Precedex drip - will continue to taper down the Librium slowly. - Seizure precaution. - Thiamine folate and multivitamins Sepsis from RUE severe cellulitis/bursitis + bilateral LE cellulitis - ID ff - on IV Ancef 2 gm q 8 Wound cx: Strep Pyogenes, Staph Aureus. PC and sensitive. CT forearm: 7 mm loose body identified within the elbow at the level of the olecranon fossa. No evidence of fracture. Subcutaneous edema overlying the posterior aspect of the elbow without evidence of abscess or foreign body within the soft tissues. Vascular surgery has followed. Dr. Christina Doppler US RUE negative for DVT- wound care team ff for LE reyes wounds, and RUE wound continue with the pain control. wound care physician consulted. FREDERIC- - improved Hypokalemia- - improved Hyponatremia- improved Hypophosphatemia- improved - on KCL 20 meq po bid Alcohol hepatitis liver disease - On PO diet, monitor LFT's - trending down - now normal- improved - check US Liver -hepatomegaly and right nonobstructing nephrolithiasis and Hepatitis profile -(-). - Protonix 40mg daily - counselled extensively some elevated BPs readings- likely related to DTs patient denies history of HTN - monitor Dry skin - lacydrin lotion to both extremities bid DVT prophylaxis -Teds SCDs -Subcu heparin PT/OT daily Discharge Planning: when cleared by ID.
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
[2018-01-18] MEDS: Temazepam 15 MG Capsule PO PRN (20:42)
[2018-01-19] MEDS: Sodium Chlor 0.9% Inj 500 ML IV.CONT SCH (00:12)
[2018-01-19] MEDS: Senna/Docusate Sodium 8.6/50 MG Tablet PO SCH (09:00)
[2018-01-19] MEDS: Heparin - SQ 10,000 UNITS/ML Vial SQ SCH (09:02)
--- NOTE | 2018-01-19 10:45 | P.PNIM ---
Subjective Interval history: f/u; cellulitis right elbow in no acute distress. has some pain to the right elbow. no fever. Physical Exam Vital signs: Vital Signs 01/18/18 12:00 01/18/18 16:00 01/18/18 20:00 Temperature 97.7 F 98.1 F Pulse Rate 63 51 L 62 Respiratory Rate 20 20 18 Blood Pressure 149/97 H 135/80 126/73 Pulse Oximetry 100 96 93 L 01/19/18 00:00 01/19/18 04:00 Temperature 97.4 F L 98.3 F Pulse Rate 79 68 Respiratory Rate 18 18 Blood Pressure 171/93 H 136/97 H Pulse Oximetry 99 96 Intake & Output 01/18/18 01/19/18 01/19/18 18:59 06:59 18:59 Intake Total 600 / 600 2652 / 2652 Output Total 1050 / 1050 600 / 600 Balance -450 / -450 2051 Weight 88.5 kg Intake: Oral 600 / 600 Other 2652 / 2652 Output: Urine 1050 / 1050 600 / 600 Other: Other Intake Source Saline Solution Date of Last Bowel Movement 01/13/18 # Bowel Movements 2 - Constitutional no acute distress - Routine Respiratory Exam Present: CTA bilaterally - Routine Cardiovascular Exam Present: RRR - Routine Abdominal Exam Present: soft - Routine Extremities Exam Comments: right elbow covered with clean dressing. - Routine Neurological Exam Present: alert, oriented X3 - Urinary Catheter Management Condom Cath placed during this visit: no Results - Labs CBC & Chem 7: 01/11/18 06:54 01/16/18 04:02 Microbiology 01/17/18 11:15 Fluid - Other Gram Stain - Final 01/17/18 11:15 Fluid - Other Wound Culture - Preliminary No growth in 24 hours Assessment and Plan - Plan Acute DTS- resolved- now oriented x 3- - will continue to taper down the Librium . - Seizure precaution. - Thiamine folate and multivitamins Sepsis from RUE severe cellulitis/bursitis + bilateral LE cellulitis Wound cx: Strep Pyogenes, Staph Aureus. PC and sensitive. repeated wound culture no growth so far. CT forearm: 7 mm loose body identified within the elbow at the level of the olecranon fossa. No evidence of fracture. Subcutaneous edema overlying the posterior aspect of the elbow without evidence of abscess or foreign body within the soft tissues. initially treated with IV Ancef- now switched to po Keflex. Vascular surgery has followed. Dr. Christina Doppler US RUE negative for DVT- wound care team ff for LE reyes wounds, and RUE wound continue with the pain control. wound care physician consulted. FREDERIC- - improved Hypokalemia- - improved Hyponatremia- improved Hypophosphatemia- improved - on KCL 20 meq po bid Alcohol hepatitis liver disease - On PO diet, monitor LFT's - trending down - now normal- improved - check US Liver -hepatomegaly and right nonobstructing nephrolithiasis and Hepatitis profile -(-). - Protonix 40mg daily - counselled extensively some elevated BPs readings- patient denies history of HTN - monitor DVT prophylaxis -Teds SCDs -Subcu heparin PT/OT daily Discharge Planning: dc home today. see med list. f/u; pcp. continue with pain control- E-Forasce was reviewed before discharge. d/w the patient and case management.
--- NOTE | 2018-01-19 11:42 | P.DS ---
Date of admission: 01/07/18 08:08 Primary care physician: No Primary Care Physician Brief History from admission: This is a 57-year-old male with a history of alcohol and tobacco abuse. Family history of CAD father with [place]. He presents to the emergency room because of alcohol withdrawal symptoms and right upper extremity pain and swelling. Patient states he cannot walk. He has decided to quit alcohol and tobacco as of yesterday. He also reports of right upper extremity pain, swelling and redness. Admits to subjective intermittent fever and chills. He has scabs in the right upper extremity as well as bilateral lower extremities. He received IV clindamycin for cellulitis in the emergency department. All other systems reviewed negative DS: Medications - Discharge Medications Prescriptions: cephalexin 500 mg PO Q6HR 14 Days cap [id number] [Adults Multivitamin] 1 tab PO DAILY 30 Days #30 tab oxycodone-acetaminophen [Percocet] 1 tab PO Q6HR PRN #8 tab PRN Reason: Acute Pain thiamine HCl (vitamin B1) 100 mg PO DAILY 30 Days #30 tab DS: Summary Hospital Course: patient was treated for DT's and cellulitis of the right elbow. he was initially treated with IV Ancef which was later switched to oral Keflex.he was seen by wound care physician and nurse and mechanical debridement was done at the bedside.initial wound culture was positive for MSSA and strep and the repeated wound culture was negative. otherwise the course in the hospital was uneventful. - Time Spent with Patient Total time spent providing and/or coordinating discharge services: Less than 30 minutes - Quality: VTE Deep Vein Thrombosis/Pulmonary Embolism Present on Admission: No Exam Vital signs: Vital Signs 01/18/18 12:00 01/18/18 16:00 01/18/18 20:00 Temperature 97.7 F 98.1 F Pulse Rate 63 51 L 62 Respiratory Rate 20 20 18 Blood Pressure 149/97 H 135/80 126/73 Pulse Oximetry 100 96 93 L 01/19/18 00:00 01/19/18 04:00 Temperature 97.4 F L 98.3 F Pulse Rate 79 68 Respiratory Rate 18 18 Blood Pressure 171/93 H 136/97 H Pulse Oximetry 99 96 Intake & Output 01/18/18 01/19/18 01/19/18 18:59 06:59 18:59 Intake Total 600 / 600 2652 / 2652 Output Total 1050 / 1050 600 / 600 Balance -450 / -450 2051 Weight 88.5 kg Intake: Oral 600 / 600 Other 2652 / 2652 Output: Urine 1050 / 1050 600 / 600 Other: Other Intake Source Saline Solution Date of Last Bowel Movement 01/13/18 # Bowel Movements 2 - Constitutional no acute distress - Routine Respiratory Exam Present: CTA bilaterally - Routine Cardiovascular Exam Present: RRR - Routine Abdominal Exam Present: soft - Routine Extremities Exam Comments: right elbow covered with clean dressing. - Routine Neurological Exam Present: alert, oriented X3 Results Procedures completed during hospitalization: debridement of the right elbow wound- at the bedside. Labs on day of discharge: Preliminary micro results at discharge 01/17/18 11:15 Wound Culture - Preliminary Fluid - Other No growth in 24 hours - Impressions ITS Impressions Elbow X-Ray 01/07/18 05:59 CONCLUSION: 1. Soft tissue swelling about the olecranon. 2. No fracture or dislocation seen. Forearm X-Ray 01/07/18 05:59 CONCLUSION: No evidence of recent bony injury. Hand X-Ray 01/07/18 05:59 CONCLUSION: Probable old boxer's fracture. No evidence of recent bony injury. Humerus X-Ray 01/07/18 05:59 CONCLUSION: No evidence of recent bony injury. Forearm CT 01/08/18 00:00 CONCLUSION: 1. 7 mm loose body identified within the joint at the level of the olecranon fossa. No evidence of fracture or abscess. Extensive subcutaneous edema. Venous Doppler Study 01/08/18 00:00 CONCLUSION: 1. Negative for deep venous thrombosis right upper extremity. Liver Ultrasound 01/09/18 00:00 CONCLUSION: 1. Fatty liver enlarged to 22 cm. 2. Gallbladder wall is mildly thickened but without gallstones or biliary ductal dilatation. 3. Nonobstructing right renal calculus. Chest X-Ray 01/09/18 09:46 CONCLUSION: Bilateral mostly basilar partial lung consolidation. Differential diagnosis includes pneumonia and aspiration. Elbow CT 01/10/18 00:00 CONCLUSION: 1. Worsening posterior elbow region cellulitis and/or olecranon bursitis. Scattered bubbles of gas are now present but only in the subcutaneous tissues. I don't see any gas in the muscles or fascial planes to support necrotizing fasciitis. 2. Nothing convincing for osteomyelitis. Discharge Plan - Discharge Disposition Patient Disposition: 01 Discharge Home - Discharge Condition Condition: Fair - Discharge Order Discharge Orders: Discharge Order (Routine); Ordered 01/19/18 Ordered By: Nila Mercado - Physicians Team Primary Care Provider: Primary Care Caity Bush Attending Provider: Nila Mercado Other Providers: Peggy Belcher MD ; Dawood Lee MD ; Earlene Najera MD ; [facility],[place] ; Ladonna Toney MD
[2018-01-19] MEDS: Lactic Acid (Ammonium Lactate) 12% Lotion 225 GM Bottle TOPICAL SCH (12:16)
== END 2018-01-19 17:21 | disposition home or self-care (01) ==
LOC: NEPC 05:24 → NEDA 08:08 → NEPFCDU 10:31 → HIMC 14:35 → H7ONC 01-11 00:25 → N04 01-12 17:04
PROVIDERS: ADMIT Internal Medicine; ATTEND Internal Medicine